=== PATIENT | male | born 1995 | race Caucasian/White ===

== ENCOUNTER 2017-05-22 21:47 | Emergency (ER) | payer SELFPAY ==
[2017-05-22 22:25] LABS: Urine Blood NEGATIVE (NEG); Urine Glucose NEGATIVE (NEG); Urine Protein 1+ (NEG); Urine Specific Gravity 1.025 (1.005-1.030)
[2017-05-22] MEDS ORDERED: NA CHLORIDE 0.9% 1,000 ML ONE (23:24)
[2017-05-22 23:56] LABS: Absolute Lymphocytes (CBC) 3.5 K/uL (0.7-4.9); Absolute Monocytes 0.8 K/uL (0.1-1.3); Absolute Neutrophil 5.7 K/uL (1.8-8.0); Basophils % 0.9 % (0-1.3); Hematocrit 44.8 % (39.6-49.0); Lymphocytes % 33.9 % (15.3-44.8); MCH 29.4 pg (27.0-35.0); MCV 87.7 fL (80-100); MPV 9.4 fL (7.6-11.3); Monocytes % 8.2 % (3.3-12.3); RBC Red Blood Cell Count 5.11 M/uL (4.33-5.43)
[2017-05-23 00:04] LABS: Bicarbonate 27 mEq/L (21-31); Glucose Level 91 mg/dL (65-120); Lipase 12 U/L (22-51); Potassium 3.6 mEq/L (3.6-5.0); Sodium Level 136 mEq/L (135-145)
[2017-05-23 00:05] LABS: Glomerular Filtration Rate > 60 mL/min (>60)
[2017-05-23 00:06] LABS: Urine Bacteria <20 /HPF (NONE SEEN); Urine Culture Reflex Order NOT NEEDED; Urine Mucus HEAVY /HPF (NONE SEEN); Urine RBC TNTC /HPF (NONE SEEN)
[2017-05-23 00:10] LABS: ALT/SGPT 37 IU/L (10-60); AST/SGOT 24 IU/L (10-42); Albumin 4.4 g/dL (3.2-5.5); Alkaline Phosphatase 87 IU/L (42-121); Amylase Level 43 U/L (28-100); BUN Blood Urea Nitrogen 11 mg/dL (6-20); Bilirubin Direct 0.1 mg/dL (0-0.2); Bilirubin Total 0.6 mg/dL (0.3-1.2); Glomerular Filtration Rate > 90 mL/min (=/>90); Protein, Total 7.5 g/dL (6.0-8.3)
[2017-05-23] MEDS ORDERED: HYDROCODONE/APAP 5/325 MG TAB ONE (00:15)
--- NOTE | 2017-05-23 00:19 | EDPHYS ---
Physician Documentation [facility] Name: Jasen Mcqueen Age: 22 yrs Sex: Male : 1995 Arrival Date: 05/22/2017 Time: 21:50 Bed 17 Private MD: ED Physician Noemi Masters HPI: 05/22 22:49 This 22 yrs old Male presents to ER via Ambulatory with complaints of Flank ma2 Pain. 22:49 The patient complains of pain in the left mid back. The pain does not radiate. Onset: ma2 The symptoms/episode began/occurred gradually, 1 day(s) ago. Associated signs and symptoms: Pertinent negatives:. Severity of pain: At its worst the pain was mild in the emergency department the pain has resolved and did so earlier today. The patient has experienced a previous episode. hxof right kindey stone her with flank pain that resolved . Historical: - Allergies: 22:00 No Known Allergies; la1 - PMHx: 22:00 Asthma; la1 - Immunization history:: Adult Immunizations up to date. - Social history:: Smoking status: Patient uses tobacco products, denies chronic smoking, but will smoke occasionally. - Family history:: not pertinent. ROS: 22:49 Constitutional: Negative for fever, chills, and weight loss, Eyes: Negative for injury, ma2 pain, redness, and discharge, ENT: Negative for injury, pain, and discharge, Cardiovascular: Negative for chest pain, palpitations, and edema, Respiratory: Negative for shortness of breath, cough, wheezing, and pleuritic chest pain, Back: Negative for injury and pain, MS/Extremity: Negative for injury and deformity, Skin: Negative for injury, rash, and discoloration, Neuro: Negative for headache, weakness, numbness, tingling, and seizure, Psych: Negative for depression, anxiety, suicide ideation, homicidal ideation, and hallucinations, Allergy/Immunology: Negative for hives, rash, and allergies, Endocrine: Negative for neck swelling, polydipsia, polyuria, polyphagia, and marked weight changes, Hematologic/Lymphatic: Negative for swollen nodes, abnormal bleeding, and unusual bruising. Exam: 22:49 Constitutional: This is a well developed, well nourished patient who is awake, alert, ma2 and in no acute distress. Head/Face: Normocephalic, atraumatic. Chest/axilla: Normal chest wall appearance and motion. Nontender with no deformity. No lesions are appreciated. Cardiovascular: Regular rate and rhythm with a normal S1 and S2. No gallops, murmurs, or rubs. Normal PMI, no JVD. No pulse deficits. Respiratory: Lungs have equal breath sounds bilaterally, clear to auscultation and percussion. No rales, rhonchi or wheezes noted. No increased work of breathing, no retractions or nasal flaring. Abdomen/GI: Soft, non-tender, with normal bowel sounds. No distension or tympany. No guarding or rebound. No evidence of tenderness throughout. Vital Signs: 22:00 BP 140 / 83; Pulse 87; Resp 16; Temp 98.6(TE); Pulse Ox 100% on R/A; Weight 99.79 kg; nc1 Height 5 ft. 9 in. (175.26 cm); 23:31 BP 120 / 83; Pulse 82; Resp 18; Pulse Ox 100% on R/A; tl2 05/23 00:18 BP 126 / 81; Pulse 93; Resp 17; Temp 98.7; Pulse Ox 100% on R/A; Pain 3/10; tl1 05/22 22:00 Body Mass Index 32.49 (99.79 kg, 175.26 cm) [facility] MDM: 05/22 22:07 Patient medically screened. wi2 22:49 Differential diagnosis: nephrolithiasis, pyelonephritis, UTI. wi2 05/23 00:17 Data reviewed: vital signs, nurses notes. Counseling: I had a detailed discussion with ma2 the patient and/or guardian regarding: the historical points, exam findings, and any diagnostic results supporting the discharge/admit diagnosis, the presence of at least one elevated blood pressure reading (>120/80) during this emergency department visit, the need for outpatient follow up, with urology. 05/22 22:23 Order name: Urine Dipstick--Ancillary (enter results); Complete Time: 22:59 [facility] 05/22 23:17 Order name: Amylase, Serum [facility] 05/22 23:17 Order name: Basic Metabolic Panel [facility] 05/22 23:17 Order name: CBC with Diff [facility] 05/22 23:17 Order name: Creatinine for Radiology [facility] 05/22 23:17 Order name: Hepatic Function wi2 05/22 22:29 Order name: CT Abd/Pelvis - Without Cont wi2 05/22 23:17 Order name: Lipase wi2 05/22 23:17 Order name: Urine Microscopic Only wi2 05/22 23:17 Order name: IV Saline Lock; Complete Time: 23:26 wi2 05/22 23:17 Order name: Labs collected and sent; Complete Time: 23:27 wi2 05/22 23:17 Order name: Urine Dipstick-Ancillary (obtain specimen); Complete Time: 23:27 [facility] Administered Medications: 05/22 23:27 Drug: NS 0.9% 1000 ml Route: IV; Rate: 1000 ml; Site: right antecubital; tl1 05/23 00:17 Follow up: IV Status: Completed infusion tl1 00:18 Drug: [place] 5 mg-325 mg 1 tabs Route: PO; tl1 00:19 Follow up: Response: No adverse reaction; Medication administered at discharge. tl1 Disposition: 05/23/17 00:18 Discharged to Home. Impression: Calculus of kidney and ureter. - Condition is Stable. - Prescriptions for Tylenol- Codeine #3 300-30 mg Oral Tablet - take 2 tablet by ORAL route every 6 hours As needed; 30 tablet. Flomax 0.4 mg Oral Capsule, Sust. Release 24 hr - take 1 capsule by ORAL route once daily 1/2 hour following the same meal each day; 30 capsule. - Work release form, Medication Reconciliation Form, Thank You Letter, Antibiotic Education, Prescription Opioid Use form. - Follow up: Private Physician; When: Tomorrow; Reason: Continuance of care. - Problem is new. - Symptoms are unchanged. Signatures: Dispatcher [employer] EDBrannon Spence RN RN la1 Ying Landaverde RN RN tl1 Noemi Masters MD MD ma2
--- NOTE | 2017-05-23 00:19 | ER ---
Nurse's Notes [facility] Name: Jasen Mcqueen Age: 22 yrs Sex: Male : 1995 Arrival Date: 05/22/2017 Time: 21:50 Bed 17 Private MD: Diagnosis: Calculus of kidney and ureter Presentation: 05/22 22:00 Presenting complaint: Patient states: left flank pain since this morning, recent hx of la1 kidney stone last month. Transition of care: patient was not received from another setting of care. Onset of symptoms was May 22, 2017. Care prior to arrival: None. 22:00 Method Of Arrival: Ambulatory la1 22:00 Acuity: UZIEL 3 la1 Historical: - Allergies: 22:00 No Known Allergies; la1 - PMHx: 22:00 Asthma; la1 - Immunization history:: Adult Immunizations up to date. - Social history:: Smoking status: Patient uses tobacco products, denies chronic smoking, but will smoke occasionally. - Family history:: not pertinent. Screenin:36 Abuse screen: Denies threats or abuse. Denies injuries from another. Nutritional tl1 screening: No deficits noted. Tuberculosis screening: Has had TB. Possible symptoms: cough for more than 2 weeks. Fall Risk None identified. Assessment: 22:34 General: Appears in no apparent distress. uncomfortable, Behavior is calm, cooperative, tl1 appropriate for age. Pain: Denies pain. Neuro: Level of Consciousness is awake, alert, obeys commands, Oriented to person, place, time, situation. Cardiovascular: Denies chest pain. GI: Abdomen is non-distended, Bowel sounds present X 4 quads. : No signs and/or symptoms were reported regarding the genitourinary system. EENT: No signs and/or symptoms were reported regarding the EENT system. 23:15 Reassessment: Patient appears in no apparent distress at this time. Patient and/or tl2 family updated on plan of care and expected duration. Pain level reassessed. Patient is alert, oriented x 3, equal unlabored respirations, skin warm/dry/pink. Awaiting CT results. Vital Signs: 22:00 BP 140 / 83; Pulse 87; Resp 16; Temp 98.6(TE); Pulse Ox 100% on R/A; Weight 99.79 kg; la1 Height 5 ft. 9 in. (175.26 cm); 23:31 BP 120 / 83; Pulse 82; Resp 18; Pulse Ox 100% on R/A; tl2 05/23 00:18 BP 126 / 81; Pulse 93; Resp 17; Temp 98.7; Pulse Ox 100% on R/A; Pain 3/10; tl1 05/22 22:00 Body Mass Index 32.49 (99.79 kg, 175.26 cm) la1 ED Course: 05/22 21:50 Patient arrived in ED. do 22:00 Triage completed. la1 22:01 Arm band placed on left wrist. la1 22:07 Noemi Masters MD is Attending Physician. ma2 22:34 Ying Landaverde RN is Primary Nurse. tl1 22:36 No provider procedures requiring assistance completed. tl1 22:41 CT Abd/Pelvis - Without Cont In Process Unspecified. EDMS 23:15 Patient has correct armband on for positive identification. Bed in low position. Call tl2 light in reach. Side rails up X 1. 23:26 Inserted saline lock: 20 gauge in right antecubital area, using aseptic technique. tl1 Blood collected. 05/23 00:19 IV discontinued, intact, bleeding controlled, No redness/swelling at site. Pressure tl1 dressing applied. Administered Medications: 05/22 23:27 Drug: NS 0.9% 1000 ml Route: IV; Rate: 1000 ml; Site: right antecubital; tl1 05/23 00:17 Follow up: IV Status: Completed infusion tl1 00:18 Drug: [place] 5 mg-325 mg 1 tabs Route: PO; tl1 00:19 Follow up: Response: No adverse reaction; Medication administered at discharge. tl1 Outcome: 00:18 Discharge ordered by . ma2 00:24 Patient left the ED. tl1 Signatures: Dispatcher [employer] EDMS Brannon Bey RN RN la1 Ying Landaverde RN RN tl1 Mar Noyola Taylor, RN RN tl2 Noemi Masters MD MD ma2 Corrections: (The following items were deleted from the chart) 05/22 23:38 22:34 Respiratory: Reports cough that is dry, hacking, persistent Airway is patent tl1 Trachea midline Respiratory effort is even, unlabored, Breath sounds are clear bilaterally. Breath sounds are diminished in left posterior lower lobe, right posterior middle lobe and right posterior lower lobe tl1
--- NOTE | 2017-05-23 07:32 | RAD REPORT ---
EXAM DESCRIPTION: CT - Abdomen Pelvis Wo Contrast - 05/23/2017 6:47 am CLINICAL HISTORY: Abdominal pain, left-sided flank pain. A preliminary written report was provided at the time of the study, and the report was reviewed prio r to final dictation. COMPARISON: CT May 02 TECHNIQUE: Axial [address] imaging of the abdomen and pelvis was performed without IV contrast. No IV contrast was given because of allergy, abnormal renal function, patient refusal or physician re quest. No oral contrast given. All CT scans are performed using dose optimization technique as appropriate and may include automated exposure control or mA/KV adjustment according to patient size. FINDINGS: No suspicious findings in the lung bases. The liver, spleen and pancreas show no suspicious findings on non-contrast imaging. Gallbladder and b iliary tree are also without suspicious finding. Gallstones can be occult on CT imaging. Mild dilatation of the left side pelvis and calices secondary to a 4 mm UPJ calculus. This calcificat ion has been displaced from its previous location in a mid left calyx. More distally the ureter is de compressed with no additional left ureteral calculus. The bladder calculus seen May 02 has passed or was retrieved. A 2-3 millimeter lower pole right renal calculus measures larger than the May 02 study. This could be true growth or volume averaging affects. No acute right-sided finding. There is no perinephric stranding. No significant adrenal finding. Isodense renal masses and pyelonephritis cannot be excluded in the absence of IV contrast. Urinary bladder is mostly contracted. Prostate glan d and seminal vesicles are normal. No dilated bowel loops or bowel wall thickening. No free air, free fluid or inflammatory stranding. N o hernia, mass or bulky lymphadenopathy. No suspicious bony findings. IMPRESSION: A 4 millimeter left UPJ calculus is present causing mild dilatation of the pelvis and ca lices. Right-side 3 millimeter calyx calcification measures larger than May 02 study. This could be true g rowth or volume averaging affects. Bladder calculus seen May 02 has passed or been retrieved. Full assessment is limited is the absence of IV contrast.
== END 2017-05-23 00:24 | disposition home or self-care (01) ==
LOC: ER 21:47
DX: N20.2 Calculus of kidney with calculus of ureter (principal); Z72.0 Tobacco use
CPT/HCPCS: 36415; 74176; 80048; 80076; 81003; 81015; 82150; 83690; 85025; 96360; 99284; J7030

== ENCOUNTER 2017-05-25 16:16 | Emergency (ER) | payer SELFPAY ==
--- NOTE | 2017-05-25 17:39 | EDPHYS ---
Physician Documentation [facility] Name: Jasen Mcqueen Age: 22 yrs Sex: Male : 1995 Arrival Date: 05/25/2017 Time: 16:18 Bed 26 Private MD: ED Physician Hugo Bhatia HPI: 05/25 16:52 This 22 yrs old Male presents to ER via Ambulatory with complaints of kb Possible Kidney Stone. 16:52 The patient complains of pain in the left flank. The pain does not radiate. Onset: The kb symptoms/episode began/occurred last week. Modifying factors: The symptoms are alleviated by nothing. the symptoms are aggravated by nothing. Associated signs and symptoms: The patient has no apparent associated signs or symptoms. Severity of pain: At its worst the pain was moderate in the emergency department the pain is unchanged. The patient has not experienced similar symptoms in the past. The patient has been recently seen at the [facility] Emergency Department, this week, for similar complaints labs were performed, CT scan was performed, was given a prescription for pain medications. Pt states he was diagnosed with a kidney stone on Thursday and he came to make sure it isn't obstructing anything. States he has not called a urologist for follow up, but came back for a work note. Historical: - Allergies: 16:26 No Known Allergies; la1 - PMHx: 16:26 Asthma; la1 - Immunization history:: Adult Immunizations up to date. - Social history:: Smoking status: Patient uses tobacco products, denies chronic smoking, but will smoke occasionally. ROS: 16:51 Constitutional: Negative for fever, chills, and weight loss, Neck: Negative for injury, kb pain, and swelling, Cardiovascular: Negative for chest pain, palpitations, and edema, Respiratory: Negative for shortness of breath, cough, wheezing, and pleuritic chest pain, Abdomen/GI: Negative for abdominal pain, nausea, vomiting, diarrhea, and constipation, MS/Extremity: Negative for injury and deformity, Skin: Negative for injury, rash, and discoloration, Neuro: Negative for headache, weakness, numbness, tingling, and seizure. 16:51 : Positive for flank pain. Exam: 16:51 Constitutional: This is a well developed, well nourished patient who is awake, alert, kb and in no acute distress. Head/Face: Normocephalic, atraumatic. Chest/axilla: Normal chest wall appearance and motion. Nontender with no deformity. No lesions are appreciated. Cardiovascular: Regular rate and rhythm with a normal S1 and S2. No gallops, murmurs, or rubs. Normal PMI, no JVD. No pulse deficits. Respiratory: Lungs have equal breath sounds bilaterally, clear to auscultation and percussion. No rales, rhonchi or wheezes noted. No increased work of breathing, no retractions or nasal flaring. Abdomen/GI: Soft, non-tender, with normal bowel sounds. No distension or tympany. No guarding or rebound. No evidence of tenderness throughout. Back: No spinal tenderness. No costovertebral tenderness. Full range of motion. Skin: Warm, dry with normal turgor. Normal color with no rashes, no lesions, and no evidence of cellulitis. MS/ Extremity: Pulses equal, no cyanosis. Neurovascular intact. Full, normal range of motion. Neuro: Awake and alert, GCS 15, oriented to person, place, time, and situation. Cranial nerves II-XII grossly intact. Motor strength 5/5 in all extremities. Sensory grossly intact. Cerebellar exam normal. Normal gait. Vital Signs: 16:26 BP 142 / 71; Pulse 115; Resp 19; Temp 98.8(TE); Pulse Ox 100% on R/A; Weight 99.79 kg; la1 Height 5 ft. 9 in. (175.26 cm); 18:05 BP 138 / 70; Pulse 110; Resp 19; Pulse Ox 100% on R/A; kr2 16:26 Body Mass Index 32.49 (99.79 kg, 175.26 cm) la1 MDM: 16:29 Patient medically screened. kb 16:50 Data reviewed: vital signs, nurses notes. Data interpreted: Pulse oximetry: on room air kb is 100 %. Interpretation: normal. 17:38 Counseling: I had a detailed discussion with the patient and/or guardian regarding: the kb historical points, exam findings, and any diagnostic results supporting the discharge/admit diagnosis, lab results, radiology results, the need for outpatient follow up, a urologist, to return to the emergency department if symptoms worsen or persist or if there are any questions or concerns that arise at home. 05/25 16:56 Order name: Urine Dipstick--Ancillary (enter results); Complete Time: 17:46 bd 05/25 16:26 Order name: Abdomen 1 View (KUB) XRAY; Complete Time: 19:42 kb 05/25 16:33 Order name: Urine Dipstick-Ancillary (obtain specimen); Complete Time: 16:51 kb Administered Medications: No medications were administered Disposition: 05/26 07:52 Co-signature as Attending Physician, Hugo Bhatia MD Available for consultation at ps1 all times. . Disposition: 05/25/17 17:38 Discharged to Home. Impression: Calculus of kidney. - Condition is Stable. - Discharge Instructions: Kidney Stones, [id number], Dietary Guidelines to Help Prevent Kidney Stones. - Work release form, Medication Reconciliation Form, Thank You Letter, Antibiotic Education, Prescription Opioid Use form. - Follow up: Emergency Department; When: As needed; Reason: Worsening of condition. Follow up: Russell Olivares; When: 2 - 3 days; Reason: Recheck today's complaints, Continuance of care, Re-evaluation by your physician. Signatures: Dispatcher [employer] EDMS Jody Jensen, CYLINDER HONER-C CYLINDER HONER-Ckb Brannon Bey RN RN la1 Mayra Clifton RN RN kr2 Hugo Bhatia MD MD ps1 Corrections: (The following items were deleted from the chart) 05/25 17:38 17:38 Counseling: I had a detailed discussion with the patient and/or guardian kb regarding: the historical points, exam findings, and any diagnostic results supporting the discharge/admit diagnosis, lab results, radiology results, the need for outpatient follow up, a family practitioner, to return to the emergency department if symptoms worsen or persist or if there are any questions or concerns that arise at home, kb
--- NOTE | 2017-05-25 17:39 | ER ---
Nurse's Notes [facility] Name: Jasen Mcqueen Age: 22 yrs Sex: Male : 1995 Arrival Date: 05/25/2017 Time: 16:18 Bed 26 Private MD: Diagnosis: Calculus of kidney Presentation: 05/25 16:24 Presenting complaint: Patient states: I have a kidney stone, was dx Thursday here. I la1 think it fell in to my bladder but I just wanted to make sure its not obstructing anything. Pt reports normal urine output. "I also need a work excuse". Transition of care: patient was not received from another setting of care. Onset of symptoms was May 25, 2017. Initial Sepsis Screen: Does the patient meet any 2 criteria? No. Patient's initial sepsis screen is negative. Does the patient have a suspected source of infection? No. Patient initial sepsis screen negative. Care prior to arrival: None. 16:24 Method Of Arrival: Ambulatory la1 16:24 Acuity: UZIEL 4 la1 Historical: - Allergies: 16:26 No Known Allergies; la1 - PMHx: 16:26 Asthma; la1 - Immunization history:: Adult Immunizations up to date. - Social history:: Smoking status: Patient uses tobacco products, denies chronic smoking, but will smoke occasionally. Screenin:06 Abuse screen: Denies threats or abuse. Denies injuries from another. Nutritional kr2 screening: No deficits noted. Tuberculosis screening: No symptoms or risk factors identified. Fall Risk None identified. Assessment: 16:30 General: Appears in no apparent distress. comfortable, well groomed, well developed, kr2 well nourished, Behavior is calm, cooperative, appropriate for age. Pain: Complains of pain in left flank Pain does not radiate. Pain currently is 6 out of 10 on a pain scale. Quality of pain is described as aching, Pain began suddenly, Is continuous. Neuro: Level of Consciousness is awake, alert, obeys commands, Oriented to person, place, time, situation. Cardiovascular: Capillary refill < 3 seconds in bilateral fingers Patient's skin is warm and dry. Respiratory: Airway is patent Respiratory effort is even, unlabored, Respiratory pattern is regular, symmetrical. GI: Bowel sounds present X 4 quads. Abd is soft and non tender X 4 quads. Reports he has kidney stones but wants to make sure there is no obstruction. : Urine is cloudy. EENT: Oral mucosa is moist. Derm: Skin is intact, is healthy with good turgor, Skin is pink, warm \\T\\ dry. Musculoskeletal: Circulation, motion, and sensation intact. Vital Signs: 16:26 BP 142 / 71; Pulse 115; Resp 19; Temp 98.8(TE); Pulse Ox 100% on R/A; Weight 99.79 kg; la1 Height 5 ft. 9 in. (175.26 cm); 18:05 BP 138 / 70; Pulse 110; Resp 19; Pulse Ox 100% on R/A; kr2 16:26 Body Mass Index 32.49 (99.79 kg, 175.26 cm) la1 ED Course: 16:18 Patient arrived in ED. as 16:25 Triage completed. la1 16:26 Jody Jensen FNP-C is PSYCHIATRICP. kb 16:26 Hugo Bhatia MD is Attending Physician. kb 16:26 Arm band placed on right wrist. la1 16:30 Patient has correct armband on for positive identification. Bed in low position. Call kr2 light in reach. Side rails up X2. Pulse ox on. NIBP on. Door closed. Warm blanket given. Head of bed elevated. 16:42 Mayra Clifton, RN is Primary Nurse. kr2 17:34 X-ray completed. Portable x-ray completed in exam room. Patient tolerated procedure mh1 well. 17:36 Abdomen 1 View (KUB) XRAY In Process Unspecified. EDMS 17:38 Russell Olivares MD is Referral Physician. kb 18:06 No provider procedures requiring assistance completed. Patient did not have IV access kr2 during this emergency room visit. Administered Medications: No medications were administered Outcome: 17:38 Discharge ordered by . kb 18:07 Discharged to home ambulatory. kr2 18:07 Condition: good 18:07 Discharge instructions given to patient, Instructed on discharge instructions, follow up and referral plans. Demonstrated understanding of instructions, follow-up care. 18:08 Patient left the ED. kr2 Signatures: Dispatcher [employer] EDMS Jody Jensen FNP-C [facility]-Ifeoma Rodriguez 1 Naila Garcia Lee, RN RN la1 Etienne, Mayra, RN RN kr2
[2017-05-25 17:45] LABS: Urine Blood 3+ (NEG); Urine Glucose NEGATIVE (NEG); Urine Protein NEGATIVE (NEG); Urine pH 6.5 (5.0-7.0)
--- NOTE | 2017-05-25 18:07 | RAD REPORT ---
EXAM DESCRIPTION: RAD - Abdomen 1 View (KUB) - 05/25/2017 5:35 pm CLINICAL HISTORY: Kidney stone COMPARISON: CT study May 22 FINDINGS: The 4 millimeter proximal left ureter calcification seen on the recent CT study is not blas ntifiable on this examination. The stone may be radiographically occult, obscured by bowel content or may have passed. No obstruction, free air or pneumatosis. Bowel gas pattern is nonspecific. No significant bony findings IMPRESSION: The calcification seen on the May 22 CT study is not clearly identifiable on this stud y. The stone may be radiographically occult, obscured by bowel content or may have passed.
== END 2017-05-25 18:08 | disposition home or self-care (01) ==
LOC: ER 16:16
DX: N20.0 Calculus of kidney (principal); F17.210 Nicotine dependence, cigarettes, uncomplicated
CPT/HCPCS: 74018; 81003; 99283

== ENCOUNTER 2017-09-09 13:27 | Emergency (ER) | payer SELFPAY ==
--- NOTE | 2017-09-09 14:30 | ER ---
Nurse's Notes [facility] Name: Jasen Mcqueen Age: 22 yrs Sex: Male : 1995 Arrival Date: 09/09/2017 Time: 13:31 Bed 14 Private MD: None, None Diagnosis: Person with feared health complaint in whom no diagnosis is made Presentation: 09/09 13:51 Presenting complaint: Patient states: Four days ago, i was walking when i stepped on sg the back of nail, it poked the sole of my right foot now it feels like there is something hard inside when i walk and put weight down on the foot. Transition of care: patient was not received from another setting of care. Onset of symptoms was September 05, 2017. Risk Assessment: Do you want to hurt yourself or someone else? Patient reports no desire to harm self or others. Initial Sepsis Screen: Does the patient meet any 2 criteria? No. Patient's initial sepsis screen is negative. Does the patient have a suspected source of infection? No. Patient's initial sepsis screen is negative. Care prior to arrival: None. 13:51 Method Of Arrival: Ambulatory 13:51 Acuity: UZIEL 5 sg Triage Assessment: 14:00 General: Appears in no apparent distress. comfortable, Behavior is calm, cooperative, ph appropriate for age, Denies fever. Pain:. Historical: - Allergies: 13:52 No Known Allergies; sg - Home Meds: 13:52 None [Active]; sg - PMHx: 13:52 Asthma; sg - PSHx: 13:52 None; sg - Immunization history:: Adult Immunizations up to date, Last tetanus immunization: up to date. - Social history:: Smoking status: Patient uses tobacco products, denies chronic smoking, but will smoke occasionally. - Ebola Screening: : Patient negative for fever greater than or equal to 101.5 degrees Fahrenheit, and additional compatible Ebola Virus Disease symptoms Patient denies exposure to infectious person Patient denies travel to an Ebola-affected area in the 21 days before illness onset No symptoms or risks identified at this time. Screenin:00 Abuse screen: Denies threats or abuse. Denies injuries from another. Nutritional ph screening: No deficits noted. Tuberculosis screening: No symptoms or risk factors identified. Fall Risk None identified. Assessment: 14:25 General: Appears in no apparent distress. comfortable, Behavior is calm, cooperative, ph appropriate for age. Pain: Complains of pain in right foot. Neuro: Level of Consciousness is awake, alert, obeys commands, Oriented to person, place, time, situation. Cardiovascular: Capillary refill < 3 seconds Patient's skin is warm and dry. Respiratory: Airway is patent Respiratory effort is even, unlabored. Derm: Skin is intact, is healthy with good turgor, Skin is pink, warm \T\ dry. Bruising that is brown, on ball of right foot. Musculoskeletal: Circulation, motion, and sensation intact. Range of motion: intact in all extremities. Vital Signs: 13:53 BP 128 / 73; Pulse 83 MON; Resp 14 S; Temp 98.3(TE); Pulse Ox 99% on R/A; Weight 90.72 sg kg (R); Height 5 ft. 9 in. (175.26 cm) (R); Pain 4/10; 15:50 BP 117 / 63; Pulse 81; Resp 18; Temp 98.0; Pulse Ox 99% on R/A; ph 13:53 Body Mass Index 29.53 (90.72 kg, 175.26 cm) sg ED Course: 13:31 Patient arrived in ED. sb2 13:31 None, None is Private Physician. sb2 13:50 Vidhi Snell, RN is Primary Nurse. ph 13:52 Triage completed. sg 13:53 Arm band placed on. sg 14:20 Kaylen Sabillon FNP-C is PHCP. snw 14:20 Dandy Hidalgo MD is Attending Physician. snw 14:25 Patient has correct armband on for positive identification. Bed in low position. Call ph light in reach. Side rails up X 1. Pulse ox on. NIBP on. Warm blanket given. 15:50 No provider procedures requiring assistance completed. Patient did not have IV access ph during this emergency room visit. 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 Exp: ph 10/29/2019. Lot #: [id number]. } Route: IM; Site: right deltoid; 15:49 Follow up: Response: No adverse reaction ph Outcome: 14:29 Discharge ordered by . snw 15:50 Patient left the ED. ph 15:50 Discharged to home ambulatory. ph 15:50 Condition: good 15:50 Discharge instructions given to patient, Instructed on discharge instructions, follow up and referral plans. medication usage, Demonstrated understanding of instructions, follow-up care, medications, Prescriptions given X 1. Signatures: Milton Sheppard, RN RN Kaylen Sabillon, BANK APPRAISER-C BANK APPRAISER-Csnw Vidhi Snell RN RN Marychuy Orantes sb2
--- NOTE | 2017-09-09 14:30 | EDPHYS ---
Physician Documentation [facility] Name: Jasen Mcqueen Age: 22 yrs Sex: Male : 1995 Arrival Date: 09/09/2017 Time: 13:31 Bed 14 Private MD: None, None ED Physician Dandy Hidalgo HPI: 09/09 14:38 This 22 yrs old Male presents to ER via Ambulatory with complaints of Foot snw Injury. 14:38 The patient presents with an injury. The complaints affect the dorsum of right foot. snw Context: The problem was sustained outdoors, resulted from stepping on head of a nail, the patient can fully bear weight, the patient is able to ambulate, Problem is a result from a previous injury: No. Onset: The symptoms/episode began/occurred suddenly, 4 day(s) ago, and became persistent. Treatment prior to arrival includes: no previous treatment. Severity of symptoms: At their worst the symptoms were moderate. The patient has not experienced similar symptoms in the past. The patient has not recently seen a physician. no fever, no redness, just feels like he is walking on a rock. Historical: - Allergies: 13:52 No Known Allergies; sg - Home Meds: 13:52 None [Active]; sg - PMHx: 13:52 Asthma; sg - PSHx: 13:52 None; sg - Immunization history:: Adult Immunizations up to date, Last tetanus immunization: up to date. - Social history:: Smoking status: Patient uses tobacco products, denies chronic smoking, but will smoke occasionally. - Ebola Screening: : Patient negative for fever greater than or equal to 101.5 degrees Fahrenheit, and additional compatible Ebola Virus Disease symptoms Patient denies exposure to infectious person Patient denies travel to an Ebola-affected area in the 21 days before illness onset No symptoms or risks identified at this time. ROS: 14:36 Constitutional: Negative for fever, chills, and weight loss, Eyes: Negative for injury, snw pain, redness, and discharge, ENT: Negative for injury, pain, and discharge, Neck: Negative for injury, pain, and swelling, Cardiovascular: Negative for chest pain, palpitations, and edema, Respiratory: Negative for shortness of breath, cough, wheezing, and pleuritic chest pain, Abdomen/GI: Negative for abdominal pain, nausea, vomiting, diarrhea, and constipation, Back: Negative for injury and pain, : Negative for injury, bleeding, discharge, and swelling, Skin: Negative for injury, rash, and discoloration, Neuro: Negative for headache, weakness, numbness, tingling, and seizure. 14:36 MS/extremity: Positive for pain to ball of foot with ambulation post injury 4 days ago. Exam: 14:35 Constitutional: This is a well developed, well nourished patient who is awake, alert, snw and in no acute distress. Head/Face: Normocephalic, atraumatic. Eyes: Pupils equal round and reactive to light, extra-ocular motions intact. Lids and lashes normal. Conjunctiva and sclera are non-icteric and not injected. Cornea within normal limits. Periorbital areas with no swelling, redness, or edema. ENT: Nares patent. No nasal discharge, no septal abnormalities noted. Tympanic membranes are normal and external auditory canals are clear. Oropharynx with no redness, swelling, or masses, exudates, or evidence of obstruction, uvula midline. Mucous membranes moist. Neck: Trachea midline, no thyromegaly or masses palpated, and no cervical lymphadenopathy. Supple, full range of motion without nuchal rigidity, or vertebral point tenderness. No Meningismus. Chest/axilla: Normal chest wall appearance and motion. Nontender with no deformity. No lesions are appreciated. Cardiovascular: Regular rate and rhythm with a normal S1 and S2. No gallops, murmurs, or rubs. Normal PMI, no JVD. No pulse deficits. Respiratory: Lungs have equal breath sounds bilaterally, clear to auscultation and percussion. No rales, rhonchi or wheezes noted. No increased work of breathing, no retractions or nasal flaring. Abdomen/GI: Soft, non-tender, with normal bowel sounds. No distension or tympany. No guarding or rebound. No evidence of tenderness throughout. Back: No spinal tenderness. No costovertebral tenderness. Full range of motion. MS/ Extremity: Pulses equal, no cyanosis. Neurovascular intact. Full, normal range of motion. Neuro: Awake and alert, GCS 15, oriented to person, place, time, and situation. Cranial nerves II-XII grossly intact. Motor strength 5/5 in all extremities. Sensory grossly intact. Cerebellar exam normal. Normal gait. Psych: Awake, alert, with orientation to person, place and time. Behavior, mood, and affect are within normal limits. 14:35 Skin: Appearance: normal except for affected area, mild tenderness to minimal laceration at ball of foot. No erythema, no ecchymosis, no s/s infection. Vital Signs: 13:53 BP 128 / 73; Pulse 83 MON; Resp 14 S; Temp 98.3(TE); Pulse Ox 99% on R/A; Weight 90.72 sg kg (R); Height 5 ft. 9 in. (175.26 cm) (R); Pain 4/10; 15:50 BP 117 / 63; Pulse 81; Resp 18; Temp 98.0; Pulse Ox 99% on R/A; ph 13:53 Body Mass Index 29.53 (90.72 kg, 175.26 cm) sg MDM: 14:20 Patient medically screened. snw 14:37 Data reviewed: nurses notes. Data interpreted: Pulse oximetry: on room air is 99 %. snw Interpretation: normal. Counseling: I had a detailed discussion with the patient and/or guardian regarding: the historical points, exam findings, and any diagnostic results supporting the discharge/admit diagnosis, the need for outpatient follow up, to return to the emergency department if symptoms worsen or persist or if there are any questions or concerns that arise at home. Special discussion: I discussed in detail with the patient the higher chance of wound infection based on his presenting history. Based on the history and exam findings, there is no indication for further emergent testing or inpatient evaluation. I discussed with the patient/guardian the need to see the primary care provider for further evaluation of the symptoms. 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 Exp: ph 10/29/2019. Lot #: [id number]. } Route: IM; Site: right deltoid; 15:49 Follow up: Response: No adverse reaction ph Disposition: 09/10 06:45 Co-signature as Attending Physician, Dandy Hidalgo MD I agree with the assessment and ori plan of care. Disposition: 09/09/17 14:29 Discharged to Home. Impression: Person with feared health complaint in whom no diagnosis is made. - Condition is Stable. - Discharge Instructions: Puncture Wound, VIS, Tetanus, Diphtheria (Td) - CDC. - Prescriptions for Diclofenac Sodium 75 mg Oral Tablet Sustained Release - take 1 tablet by ORAL route 2 times per day; 30 tablet. - Medication Reconciliation Form, Thank You Letter, Antibiotic Education, Prescription Opioid Use, Work release form form. - Follow up: Private Physician; When: 1 week; Reason: Recheck today's complaints, Continuance of care, Re-evaluation by your physician. Follow up: Emergency Department; When: As needed; Reason: Worsening of condition. Signatures: Milton Sheppard, RN RN Dandy Woo MD MD cha Therrien, Shelly, FACING GRINDER-C FACING GRINDER-Csnw Vidhi Snell RN RN ph Corrections: (The following items were deleted from the chart) 09/09 14:29 14:28 Chart complete. judy kim 15:50 14:29 09/09/2017 14:29 Discharged to Home. Impression: Person with feared health ph complaint in whom no diagnosis is made. Condition is Stable. Forms are Medication Reconciliation Form, Thank You Letter, Antibiotic Education, Prescription Opioid Use. Follow up: Private Physician; When: 1 week; Reason: Recheck today's complaints, Continuance of care, Re-evaluation by your physician. Follow up: Emergency Department; When: As needed; Reason: Worsening of condition. judy
[2017-09-09] MEDS ORDERED: TETANUS & DIPHTHERIA TOX,ADULT 0.5 ML VIAL ONE (15:20)
== END 2017-09-09 15:50 | disposition home or self-care (01) ==
LOC: ER 13:27
DX: Z71.1 Person with feared health complaint in whom no diagnosis is made (principal); Z23 Encounter for immunization; Z72.0 Tobacco use
CPT/HCPCS: 90714; 99283

== ENCOUNTER 2017-12-04 04:14 | Emergency (ER) | payer SELFPAY ==
[2017-12-04] MEDS ORDERED: ONDANSETRON 4 MG (ODT) TAB ONE (04:45)
--- NOTE | 2017-12-04 05:25 | ER ---
Nurse's Notes [facility] Name: Jasen Mcqueen Age: 22 yrs Sex: Male : 1995 Arrival Date: 12/04/2017 Time: 04:15 Bed 14 Private MD: Diagnosis: Weakness;Malaise and fatigue;Cough;Fever, unspecified Presentation: 12/04 04:29 Presenting complaint: Patient states: I began having nausea \T\ vomiting 3 days ago and jb4 have had a cough since then and just wanted to get checked out. Transition of care: patient was not received from another setting of care. Onset of symptoms was November 30, 2017. Risk Assessment: Do you want to hurt yourself or someone else? Patient reports no desire to harm self or others. Initial Sepsis Screen: Does the patient meet any 2 criteria? HR > 90 bpm. Yes Does the patient have a suspected source of infection? No. Patient's initial sepsis screen is negative. Care prior to arrival: None. 04:29 Method Of Arrival: Ambulatory jb4 04:29 Acuity: UZIEL 4 jb4 Triage Assessment: 04:32 General: Appears in no apparent distress. uncomfortable, Behavior is calm, cooperative, jb4 appropriate for age. Pain: Denies pain. EENT: No signs and/or symptoms were reported regarding the EENT system. Neuro: Level of Consciousness is awake, alert, obeys commands, Oriented to person, place, time, situation. Cardiovascular: Heart tones S1 S2 present Patient's skin is warm and dry. Respiratory: Reports cough that is Airway is patent Respiratory effort is even, unlabored, Respiratory pattern is regular, symmetrical, Breath sounds are clear bilaterally. GI: Reports nausea, vomiting. : No signs and/or symptoms were reported regarding the genitourinary system. Derm: Skin is intact, Skin is pink, warm \T\ dry. Musculoskeletal: Circulation, motion, and sensation intact. Historical: - Allergies: 04:32 No Known Allergies; jb4 - Home Meds: 04:32 Theraflu Flu-Sore Throat oral oral [Active]; jb4 - PMHx: 04:32 Asthma; jb4 - PSHx: 04:32 None; jb4 - Immunization history:: Adult Immunizations up to date, Flu vaccine is not up to date. - Social history:: Smoking status: Patient uses tobacco products, smokes one-half pack cigarettes per day. - Family history:: not pertinent. - Ebola Screening: : No symptoms or risks identified at this time. Screenin:39 Abuse screen: Denies threats or abuse. Nutritional screening: No deficits noted. jb4 Tuberculosis screening: No symptoms or risk factors identified. Fall Risk None identified. Assessment: 04:39 General: see triage assessment.. jb4 05:21 Reassessment: Patient appears in no apparent distress at this time. Patient and/or jb4 family updated on plan of care and expected duration. Pain level reassessed. Patient is alert, oriented x 3, equal unlabored respirations, skin warm/dry/pink. 05:30 Reassessment: Patient appears in no apparent distress at this time. Patient and/or jb4 family updated on plan of care and expected duration. Pain level reassessed. Patient is alert, oriented x 3, equal unlabored respirations, skin warm/dry/pink. Discussed D/c, F/u with pt, denies questions or concerns. Vital Signs: 04:32 BP 119 / 72; Pulse 94; Resp 18; Temp 98.2; Pulse Ox 100% on R/A; Weight 90.72 kg; jb4 Height 5 ft. 9 in. (175.26 cm); Pain 0/10; 05:21 BP 110 / 77; Pulse 86; Resp 18; Pulse Ox 100% on R/A; jb4 04:32 Body Mass Index 29.53 (90.72 kg, 175.26 cm) jb4 ED Course: 04:15 Patient arrived in ED. ds1 04:19 Valentin León RN is Primary Nurse. jb4 04:20 Dandy Hidalgo MD is Attending Physician. [facility] 04:30 Triage completed. jb4 04:32 Arm band placed on right wrist. jb4 04:39 Patient has correct armband on for positive identification. Bed in low position. Call jb4 light in reach. Side rails up X 1. Pulse ox on. NIBP on. 04:51 X-ray completed. Portable x-ray completed in exam room. Patient tolerated procedure kw well. 04:52 Chest Single View XRAY In Process Unspecified. EDMS 05:21 No provider procedures requiring assistance completed. IV discontinued, intact, jb4 bleeding controlled. Administered Medications: 04:39 Drug: Zofran 4 mg Route: PO; jb4 05:00 Follow up: Response: No adverse reaction; Vomiting decreased jb4 Outcome: 05:25 Discharge ordered by MD. rehman 05:32 Discharged to home ambulatory. jb4 05:32 Condition: stable 05:32 Discharge instructions given to patient, Instructed on discharge instructions, follow up and referral plans. medication usage, Demonstrated understanding of instructions, follow-up care, medications, Prescriptions given X 1. 05:32 Patient left the ED. jb4 Signatures: Dispatcher [employer] EDMI Dandy Hidalgo MD MD cha Sanford, Demi ds1 Miranda Lazaro James, RN RN jb4 Corrections: (The following items were deleted from the chart) 05:31 05:21 BP 110 / 77; Pulse 18bpm; Resp 86bpm; Pulse Ox 100% RA; jb4 jb4
--- NOTE | 2017-12-04 05:25 | EDPHYS ---
Physician Documentation [facility] Name: Jasen Mcqueen Age: 22 yrs Sex: Male : 1995 Arrival Date: 12/04/2017 Time: 04:15 Bed 14 Private MD: ED Physician Dandy Hidalgo HPI: 12/04 04:24 This 22 yrs old Male presents to ER via Unassigned with complaints of Flu ori Symptoms. 04:24 The patient presents to the emergency department with nausea, vomiting, 3 times since ori the onset of symptoms. Onset: The symptoms/episode began/occurred 2 day(s) ago. Possible causes: unknown. The symptoms are aggravated by movement, The symptoms are alleviated by remaining still. weak, achy, vomiting, cough. Associated signs and symptoms: Pertinent positives: fever, nausea, vomiting. The patient reports fever, not measured (subjective). Severity of symptoms: At their worst the symptoms were mild moderate in the emergency department the symptoms are unchanged. Historical: - Allergies: 04:32 No Known Allergies; jb4 - Home Meds: 04:32 Theraflu Flu-Sore Throat oral oral [Active]; jb4 - PMHx: 04:32 Asthma; jb4 - PSHx: 04:32 None; jb4 - Immunization history:: Adult Immunizations up to date, Flu vaccine is not up to date. - Social history:: Smoking status: Patient uses tobacco products, smokes one-half pack cigarettes per day. - Family history:: not pertinent. - Ebola Screening: : No symptoms or risks identified at this time. ROS: 04:24 Constitutional: Negative for fever, chills, and weight loss, Eyes: Negative for injury, ori pain, redness, and discharge, ENT: Negative for injury, pain, and discharge, Neck: Negative for injury, pain, and swelling, Cardiovascular: Negative for chest pain, palpitations, and edema, Back: Negative for injury and pain, : Negative for injury, bleeding, discharge, and swelling, MS/Extremity: Negative for injury and deformity, Skin: Negative for injury, rash, and discoloration, Neuro: Negative for headache, weakness, numbness, tingling, and seizure, Psych: Negative for depression, anxiety, suicide ideation, homicidal ideation, and hallucinations, Allergy/Immunology: Negative for hives, rash, and allergies, Endocrine: Negative for neck swelling, polydipsia, polyuria, polyphagia, and marked weight changes, Hematologic/Lymphatic: Negative for swollen nodes, abnormal bleeding, and unusual bruising. 04:24 Respiratory: Positive for cough. 04:24 Abdomen/GI: Positive for nausea and vomiting. Exam: 04:24 Constitutional: This is a well developed, well nourished patient who is awake, alert, ori and in no acute distress. Head/Face: Normocephalic, atraumatic. Eyes: Pupils equal round and reactive to light, extra-ocular motions intact. Lids and lashes normal. Conjunctiva and sclera are non-icteric and not injected. Cornea within normal limits. Periorbital areas with no swelling, redness, or edema. ENT: Nares patent. No nasal discharge, no septal abnormalities noted. Tympanic membranes are normal and external auditory canals are clear. Oropharynx with no redness, swelling, or masses, exudates, or evidence of obstruction, uvula midline. Mucous membranes moist. Neck: Trachea midline, no thyromegaly or masses palpated, and no cervical lymphadenopathy. Supple, full range of motion without nuchal rigidity, or vertebral point tenderness. No Meningismus. Chest/axilla: Normal chest wall appearance and motion. Nontender with no deformity. No lesions are appreciated. Cardiovascular: Regular rate and rhythm with a normal S1 and S2. No gallops, murmurs, or rubs. Normal PMI, no JVD. No pulse deficits. Respiratory: Lungs have equal breath sounds bilaterally, clear to auscultation and percussion. No rales, rhonchi or wheezes noted. No increased work of breathing, no retractions or nasal flaring. Back: No spinal tenderness. No costovertebral tenderness. Full range of motion. Male : Normal genitalia with no discharge or lesions. Skin: Warm, dry with normal turgor. Normal color with no rashes, no lesions, and no evidence of cellulitis. MS/ Extremity: Pulses equal, no cyanosis. Neurovascular intact. Full, normal range of motion. Neuro: Awake and alert, GCS 15, oriented to person, place, time, and situation. Cranial nerves II-XII grossly intact. Motor strength 5/5 in all extremities. Sensory grossly intact. Cerebellar exam normal. Normal gait. Psych: Awake, alert, with orientation to person, place and time. Behavior, mood, and affect are within normal limits. 04:24 Abdomen/GI: Inspection: abdomen appears normal, Bowel sounds: normal, Palpation: nontender, Liver: no appreciated palpable abnormalities, Hernia: not appreciated. Vital Signs: 04:32 BP 119 / 72; Pulse 94; Resp 18; Temp 98.2; Pulse Ox 100% on R/A; Weight 90.72 kg; jb4 Height 5 ft. 9 in. (175.26 cm); Pain 0/10; 05:21 BP 110 / 77; Pulse 86; Resp 18; Pulse Ox 100% on R/A; jb4 04:32 Body Mass Index 29.53 (90.72 kg, 175.26 cm) 4 MDM: 04:20 Patient medically screened. [facility] 04:27 Data reviewed: vital signs, nurses notes, lab test result(s), radiologic studies. [facility] 12/04 04:23 Order name: Flu; Complete Time: 05:24 [facility] 12/04 04:27 Order name: Chest Single View XRAY [facility] Administered Medications: 04:39 Drug: Zofran 4 mg Route: PO; 4 05:00 Follow up: Response: No adverse reaction; Vomiting decreased jb4 Disposition: 12/04/17 05:25 Discharged to Home. Impression: Weakness, Malaise and fatigue, Cough, Fever, unspecified. - Condition is Stable. - Discharge Instructions: Weakness, Cool Mist Vaporizer, Fatigue, Cough, Adult, [id number], Weakness, Ghcf-[id number], Cough, Adult. - Prescriptions for Zofran 4 mg Oral Tablet - take 1 tablet by ORAL route every 12 hours As needed; 12 tablet. - Medication Reconciliation Form, Thank You Letter, Antibiotic Education, Prescription Opioid Use form. - Work release form (12/04/17 05:33). jb4 - Follow up: Private Physician; When: 2 - 3 days; Reason: Recheck today's complaints, Continuance of care, Re-evaluation by your physician. - Problem is new. - Symptoms have improved. Signatures: Dispatcher [employer] EDMS Dandy Hidalgo MD MD cha Bryson, James RN RN jb4 Corrections: (The following items were deleted from the chart) 05:32 05:25 12/04/2017 05:25 Discharged to Home. Impression: Weakness; Malaise and fatigue; jb4 Cough; Fever, unspecified. Condition is Stable. Discharge Instructions: Weakness, Cool Mist Vaporizer, Fatigue, Cough, Adult, [id number], Weakness, Blko-rb-Tnns, Cough, Adult. Prescriptions for Zofran 4 mg Oral Tablet - take 1 tablet by ORAL route every 12 hours As needed; 12 tablet. and Forms are Medication Reconciliation Form, Thank You Letter, Antibiotic Education, Prescription Opioid Use. Follow up: Private Physician; When: 2 - 3 days; Reason: Recheck today's complaints, Continuance of care, Re-evaluation by your physician. Problem is new. Symptoms have improved. ori
--- NOTE | 2017-12-04 07:49 | RAD REPORT ---
EXAM DESCRIPTION: RAD - Chest Single View - 12/04/2017 4:52 am CLINICAL HISTORY: Cough, abdominal pain with vomiting COMPARISON: None. TECHNIQUE: AP portable chest image was obtained [id number] . FINDINGS: Lungs are clear. Heart and vasculature are normal. No measurable pleural effusion and no p neumothorax. No acute bony abnormality seen. No acute aortic findings suspected. IMPRESSION: No acute cardiopulmonary process.
== END 2017-12-04 05:32 | disposition home or self-care (01) ==
LOC: ER 04:14
DX: R53.1 Weakness (principal); R50.9 Fever, unspecified; R53.81 Other malaise; R53.83 Other fatigue; F17.210 Nicotine dependence, cigarettes, uncomplicated
CPT/HCPCS: 71045; 87804; 99284

== ENCOUNTER 2018-06-15 16:09 | Emergency (ER) | payer SELFPAY ==
--- NOTE | 2018-06-15 16:40 | ER ---
Nurse's Notes [facility] Name: Jasen Mcqueen Age: 23 yrs Sex: Male : 1995 Arrival Date: 06/15/2018 Time: 16:09 Bed 28 Private MD: Diagnosis: Acute pharyngitis Presentation: 06/15 16:32 Presenting complaint: Patient states: Sore throat since last night, denies fever. aj1 Transition of care: patient was not received from another setting of care. Onset of symptoms was June 14, 2018. Risk Assessment: Do you want to hurt yourself or someone else? Patient reports no desire to harm self or others. Initial Sepsis Screen: Does the patient meet any 2 criteria? No. Patient's initial sepsis screen is negative. Does the patient have a suspected source of infection? No. Patient's initial sepsis screen is negative. Care prior to arrival: None. 16:32 Method Of Arrival: Ambulatory aj1 16:32 Acuity: UZIEL 4 aj1 Triage Assessment: 16:34 General: Appears in no apparent distress. comfortable, Behavior is calm, cooperative, aj1 appropriate for age. Pain: Complains of pain in left aspect of posterior pharynx and right aspect of posterior pharynx. EENT: Reports sore throat. Historical: - Allergies: 16:34 No Known Allergies; aj1 - Home Meds: 16:34 None [Active]; aj1 - PMHx: 16:34 Asthma; aj1 - PSHx: 16:34 None; aj1 - Immunization history:: Adult Immunizations up to date. - Social history:: Smoking status: Patient uses tobacco products, smokes one pack cigarettes per day. - Ebola Screening: : Patient denies travel to an Ebola-affected area in the 21 days before illness onset. Screenin:45 Abuse screen: Denies threats or abuse. Denies injuries from another. Nutritional aj1 screening: No deficits noted. Tuberculosis screening: No symptoms or risk factors identified. Fall Risk None identified. Assessment: 16:45 General: Appears in no apparent distress. comfortable, Behavior is calm, cooperative, aj1 appropriate for age. Pain: Complains of pain in right aspect of posterior pharynx and left aspect of posterior pharynx. Neuro: Level of Consciousness is awake, alert, obeys commands, Oriented to person, place, time, situation. Cardiovascular: Patient's skin is warm and dry. Respiratory: Airway is patent Respiratory effort is even, unlabored, Respiratory pattern is regular, symmetrical, Breath sounds are clear bilaterally. GI: No signs and/or symptoms were reported involving the gastrointestinal system. : No signs and/or symptoms were reported regarding the genitourinary system. EENT: Throat is reddened bilaterally Reports sore throat. Derm: Skin is pink, warm \T\ dry. normal. Musculoskeletal: Circulation, motion, and sensation intact. Vital Signs: 16:34 BP 133 / 74; Pulse 71; Resp 18; Temp 98.1; Pulse Ox 99% on R/A; aj1 ED Course: 16:09 Patient arrived in ED. as 16:10 [facility] kb 16:10 Dandy Hidalgo MD is Attending Physician. kb 16:24 Strep Sent. aj1 16:32 Jossy Valerio, RN is Primary Nurse. aj1 16:34 Triage completed. aj1 16:34 Arm band placed on. aj1 16:45 No provider procedures requiring assistance completed. Patient did not have IV access aj1 during this emergency room visit. 16:45 Patient has correct armband on for positive identification. aj1 Administered Medications: No medications were administered Outcome: 16:39 Discharge ordered by . kb 16:45 Discharged to home ambulatory. aj1 16:45 Condition: good 16:45 Discharge instructions given to patient, Instructed on discharge instructions, follow up and referral plans. Demonstrated understanding of instructions, follow-up care. 16:47 Patient left the ED. aj1 Signatures: Jody Jensen FNP-C FNP-Jossy Stein, RN RN meg1 Naila Garcia as
--- NOTE | 2018-06-15 16:40 | EDPHYS ---
Physician Documentation [facility] Name: Jasen Mcqueen Age: 23 yrs Sex: Male : 1995 Arrival Date: 06/15/2018 Time: 16:09 Bed 28 Private MD: ELDER Physician Dandy Hidalgo HPI: 06/15 16:33 This 23 yrs old Male presents to ER via Ambulatory with complaints of Sore kb Throat. 16:33 The patient presents with sore throat. The patient describes throat pain as constant. kb Onset: The symptoms/episode began/occurred last night. Severity of symptoms: At their worst the symptoms were moderate, in the emergency department the symptoms are unchanged. Modifying factors: The symptoms are alleviated by nothing, the symptoms are aggravated by swallowing, Patient's oral intake status: good. Associated signs and symptoms: Pertinent positives: Sore throat Pertinent negatives chest pain, chills, cough, diarrhea, dysphagia, earache, fever, flu-like symptoms, headache, nausea, rhinorrhea, shortness of breath, vomiting. The patient has not experienced similar symptoms in the past. The patient has not recently seen a physician. Historical: - Allergies: 16:34 No Known Allergies; aj1 - Home Meds: 16:34 None [Active]; aj1 - PMHx: 16:34 Asthma; aj1 - PSHx: 16:34 None; aj1 - Immunization history:: Adult Immunizations up to date. - Social history:: Smoking status: Patient uses tobacco products, smokes one pack cigarettes per day. - Ebola Screening: : Patient denies travel to an Ebola-affected area in the 21 days before illness onset. ROS: 16:33 Constitutional: Negative for fever, chills, and weight loss, Cardiovascular: Negative kb for chest pain, palpitations, and edema, Respiratory: Negative for shortness of breath, cough, wheezing, and pleuritic chest pain, Abdomen/GI: Negative for abdominal pain, nausea, vomiting, diarrhea, and constipation, MS/Extremity: Negative for injury and deformity, Skin: Negative for injury, rash, and discoloration, Neuro: Negative for headache, weakness, numbness, tingling, and seizure. 16:33 ENT: Positive for sore throat. Exam: 16:32 Constitutional: This is a well developed, well nourished patient who is awake, alert, kb and in no acute distress. Head/Face: Normocephalic, atraumatic. Chest/axilla: Normal chest wall appearance and motion. Nontender with no deformity. No lesions are appreciated. Cardiovascular: Regular rate and rhythm with a normal S1 and S2. No gallops, murmurs, or rubs. Normal PMI, no JVD. No pulse deficits. Respiratory: Lungs have equal breath sounds bilaterally, clear to auscultation and percussion. No rales, rhonchi or wheezes noted. No increased work of breathing, no retractions or nasal flaring. Abdomen/GI: Soft, non-tender, with normal bowel sounds. No distension or tympany. No guarding or rebound. No evidence of tenderness throughout. Skin: Warm, dry with normal turgor. Normal color with no rashes, no lesions, and no evidence of cellulitis. MS/ Extremity: Pulses equal, no cyanosis. Neurovascular intact. Full, normal range of motion. Neuro: Awake and alert, GCS 15, oriented to person, place, time, and situation. Cranial nerves II-XII grossly intact. Motor strength 5/5 in all extremities. Sensory grossly intact. Cerebellar exam normal. Normal gait. 16:32 ENT: Posterior pharynx: Airway: normal, no evidence of obstruction, Tonsils: bilaterally enlarged, with erythema, Uvula: normal, midline, swelling, that is mild, erythema, that is moderate, exudate, is not appreciated. Vital Signs: 16:34 BP 133 / 74; Pulse 71; Resp 18; Temp 98.1; Pulse Ox 99% on R/A; aj1 MDM: 16:22 Patient medically screened. kb 16:32 Data reviewed: vital signs, nurses notes. Data interpreted: Pulse oximetry: on room air kb is 98 %. Interpretation: normal. 16:38 Counseling: I had a detailed discussion with the patient and/or guardian regarding: the kb historical points, exam findings, and any diagnostic results supporting the discharge/admit diagnosis, lab results, the need for outpatient follow up, a family practitioner, to return to the emergency department if symptoms worsen or persist or if there are any questions or concerns that arise at home. 06/15 16:22 Order name: Strep; Complete Time: 16:38 kb 06/15 16:38 Order name: Throat Culture EDMS Administered Medications: No medications were administered Disposition: 06/16 08:19 Co-signature as Attending Physician, Dandy Hidalgo MD I agree with the assessment and ori plan of care. Disposition: 06/15/18 16:39 Discharged to Home. Impression: Acute pharyngitis. - Condition is Stable. - Discharge Instructions: Pharyngitis, [id number], Sore Throat, [id number]. - Medication Reconciliation Form, Thank You Letter, Antibiotic Education, Prescription Opioid Use form. - Follow up: Emergency Department; When: As needed; Reason: Worsening of condition. Follow up: Private Physician; When: 2 - 3 days; Reason: Recheck today's complaints, Continuance of care, Re-evaluation by your physician. Signatures: Dispatcher [employer] EDMS Jody Jensen, MADINA-Vanna PAINTER-Jossy Stein RN RN aj1 Dandy Hidalgo MD MD ori Corrections: (The following items were deleted from the chart) 06/15 16:47 16:39 06/15/2018 16:39 Discharged to Home. Impression: Acute pharyngitis. Condition is aj1 Stable. Forms are Medication Reconciliation Form, Thank You Letter, Antibiotic Education, Prescription Opioid Use. Follow up: Emergency Department; When: As needed; Reason: Worsening of condition. Follow up: Private Physician; When: 2 - 3 days; Reason: Recheck today's complaints, Continuance of care, Re-evaluation by your physician. kb
== END 2018-06-15 16:47 | disposition home or self-care (01) ==
LOC: ER 16:09
DX: J02.9 Acute pharyngitis, unspecified (principal); F17.210 Nicotine dependence, cigarettes, uncomplicated
CPT/HCPCS: 87070; 87081; 99283

== ENCOUNTER 2018-11-06 10:30 | Emergency (ER) | payer SELFPAY ==
[2018-11-06] MEDS ORDERED: ONDANSETRON 4 MG/2 ML VIAL ONE (11:04)
[2018-11-06] MEDS ORDERED: NA CHLORIDE 0.9% 1,000 ML ONE (11:04)
[2018-11-06] MEDS ORDERED: FENTANYL CITR 100 MCG/2 ML ONE (11:04)
[2018-11-06] MEDS ORDERED: KETOROLAC 30 MG/ML INJ ONE (11:04)
[2018-11-06 11:18] LABS: Basophils % 0.9 % (0-1.3); Hematocrit 42.3 % (39.6-49.0); Lymphocytes % 31.5 % (15.3-44.8); MPV 9.3 fL (7.6-11.3); RBC Red Blood Cell Count 4.85 M/uL (4.33-5.43)
[2018-11-06] MEDS ORDERED: HYDROMORPHONE HCL 0.5 MG/0.5 ML INJ ONE (11:30)
--- NOTE | 2018-11-06 11:33 | RAD REPORT ---
EXAM DESCRIPTION: CT - Stone Protocol - 11/06/2018 11:10 am CLINICAL HISTORY: Abdominal pain. Hematuria COMPARISON: 2018 TECHNIQUE: Computed axial tomography of the abdomen pelvis was obtained without oral or IV contrast. Lack of IV and oral contrast limits evaluation of solid organs, bowel, and vessels. Coronal reformat tita images were obtained and reviewed. All CT scans are performed using dose optimization technique as appropriate and may include automated exposure control or mA/KV adjustment according to patient size. FINDINGS: Small bilateral renal calculi. Mild right hydronephrosis. 4 millimeter calculus proximal r ight ureter. Hounsfield unit 1386 The liver, spleen, pancreas and adrenals appear grossly normal There is no evidence of diverticulitis. The appendix appears normal IMPRESSION: 4 millimeter calculus proximal right ureter resulting in mild right hydronephrosis
[2018-11-06 11:39] LABS: BUN Blood Urea Nitrogen 12 mg/dL (7-18); Bicarbonate 25 mmol/L (21-32); Glucose Level 126 mg/dL (74-106); Potassium 3.6 mmol/L (3.5-5.1); Sodium Level 142 mmol/L (136-145)
[2018-11-06 11:48] LABS: Urine Blood 3+ (NEG); Urine Glucose NEGATIVE (NEG); Urine Protein 2+ (NEG); Urine Specific Gravity 1.025 (1.005-1.030); Urine pH 5.5 (5.0-7.0)
[2018-11-06] MEDS ORDERED: TAMSULOSIN 0.4 MG SR CAP ONE (12:38)
--- NOTE | 2018-11-06 12:59 | ER ---
Nurse's Notes [facility] Name: Jasen Mcqueen Age: 23 yrs Sex: Male : 1995 Arrival Date: 11/06/2018 Time: 10:31 Bed 5 Private MD: None, None Diagnosis: Hydronephrosis with renal and ureteral calculous obstruction Presentation: 11/06 10:55 Presenting complaint: Patient states: right flank pain with bloody urine started 1 hour jl7 ago. 10:55 Transition of care: patient was not received from another setting of care. Onset of jl7 symptoms was November 06, 2018 at 10:00. Risk Assessment: Do you want to hurt yourself or someone else? Patient reports no desire to harm self or others. Initial Sepsis Screen: Does the patient meet any 2 criteria? No. Patient's initial sepsis screen is negative. Does the patient have a suspected source of infection? No. Patient's initial sepsis screen is negative. Care prior to arrival: None. 10:55 Method Of Arrival: Ambulatory jl7 10:55 Acuity: UZIEL 3 jl7 Triage Assessment: 11:00 General: Appears in no apparent distress. uncomfortable, Behavior is cooperative, jl7 crying. Pain: Complains of pain in right mid back Pain currently is 10 out of 10 on a pain scale. Pain began 1 hour ago. Is continuous, Noted to be crying, grimacing, guarding, moaning. EENT: No signs and/or symptoms were reported regarding the EENT system. Neuro: Level of Consciousness is awake, alert, obeys commands, Oriented to person, place, time, situation. Cardiovascular: Patient's skin is warm and dry. Respiratory: Airway is patent Respiratory effort is even, unlabored, Respiratory pattern is regular, symmetrical. GI: Abdomen is round non-distended, Bowel sounds present X 4 quads. Abd is soft and non tender X 4 quads. : Reports pain in right flank(s). Derm: Skin is diaphoretic, Skin is pale, Skin temperature is warm. Musculoskeletal: No deficits noted. Historical: - Allergies: 11:08 No Known Allergies; jl7 - Home Meds: 11:08 None [Active]; jl7 - PMHx: 11:08 Asthma; Kidney stones; jl7 - PSHx: 11:08 None; jl7 - Immunization history:: Adult Immunizations unknown. - Social history:: Smoking status: Patient uses tobacco products, smokes one-half pack cigarettes per day. - Ebola Screening: : No symptoms or risks identified at this time. Screenin:14 Abuse screen: Denies threats or abuse. Denies injuries from another. Nutritional jl7 screening: No deficits noted. Tuberculosis screening: No symptoms or risk factors identified. Fall Risk IV access (20 points). Total Paredes Fall Scale indicates No Risk (0-24 pts). Assessment: 11:00 General: See triage assessment. jl7 11:45 Reassessment: Patient states feeling better. Patient states symptoms have improved. jl7 12:39 Reassessment: Patient appears in no apparent distress at this time. No changes from jl7 previously documented assessment. Patient and/or family updated on plan of care and expected duration. Pain level reassessed. Patient is alert, oriented x 3, equal unlabored respirations, skin warm/dry/pink. Vital Signs: 11:00 BP 150 / 99; Pulse 90; Resp 16 S; Pulse Ox 98% on R/A; Weight 90.72 kg (R); Pain 10/10; jl7 11:22 Temp 98.1(O); jl7 12:39 BP 140 / 86; Pulse 78; Resp 16; Pulse Ox 99% on R/A; jl7 ED Course: 10:31 Patient arrived in ED. mr 10:32 None, None is Private Physician. mr 10:47 Dandy De Leon PA is PHCP. cp 10:47 Dandy Hidalgo MD is Attending Physician. cp 10:47 Trey Quarles, MARY LOU is Primary Nurse. jl7 10:54 PHCP role handed off by Dandy De Leon PA jr8 10:54 Fermín Travis PA is PHCP. jr8 11:00 Arm band placed on right wrist. jl7 11:08 Triage completed. jl7 11:10 CT completed. Patient tolerated procedure well. Patient moved back from CT. mw3 11:11 CT Stone Protocol In Process Unspecified. EDMS 11:14 Patient has correct armband on for positive identification. Placed in gown. Bed in low jl7 position. Call light in reach. Side rails up X 1. Pulse ox on. NIBP on. 11:14 Initial lab(s) drawn, by me, sent to lab. Urine collected: clean catch specimen, odalis jl7 blood. Inserted saline lock: 20 gauge in right antecubital area, using aseptic technique. Blood collected. 12:57 Russell Olivares MD is Referral Physician. jr8 13:10 No provider procedures requiring assistance completed. IV discontinued, intact, jl7 bleeding controlled, No redness/swelling at site. Pressure dressing applied. Administered Medications: 11:05 Drug: fentaNYL (PF) 50 mcg Route: IVP; Site: right antecubital; jl7 11:20 Follow up: Response: No adverse reaction; Pain is unchanged, physician notified jl7 11:06 Drug: Zofran 4 mg Route: IVP; Site: right antecubital; jl7 11:24 Follow up: Response: No adverse reaction jl7 11:18 Drug: NS 0.9% 500 ml Route: IV; Rate: bolus; Site: right antecubital; jl7 12:00 Follow up: Response: No adverse reaction; IV Status: Completed infusion; IV Intake: jl7 500ml 11:22 Drug: TORadol - Ketorolac 15 mg Route: IVP; Site: right antecubital; jl7 11:30 Follow up: Response: No adverse reaction; Pain is unchanged, physician notified jl7 11:30 Drug: Dilaudid 0.5 mg Route: IVP; Site: right antecubital; jl7 11:45 Follow up: Response: No adverse reaction; Pain is decreased jl7 12:37 Drug: Flomax 0.4 mg Route: PO; jl7 13:11 Follow up: Response: No adverse reaction jl7 13:11 Not Given (Patient Refused): B[place] (7.5 mg-325 mg) 1 tabs PO once; RASS on ADMIN: jl7 Combtv4, Very Agttd3, Agttd2, Rstlss1, AlertClm0, Drwsy-1, Lt Sdtn-2, Mod Sdtn-3, Dp Sdtn-4, UnArsble-5 Intake: 12:00 IV: 500ml; Total: 500ml. jl7 Outcome: 12:58 Discharge ordered by . jr8 13:10 Discharged to home ambulatory. jl7 13:10 Condition: stable 13:10 Discharge instructions given to patient, family, Instructed on discharge instructions, follow up and referral plans. medication usage, Demonstrated understanding of instructions, follow-up care, medications, Prescriptions given X 4. 13:11 Patient left the ED. jl7 Signatures: Dispatcher [employer] ELDERKY Feli Delgadillo ThaddeusFermín PA PA jr8 Dandy De Leon PA PA cp Leal, Jahala, RN RN jl7 Denise Soto mw3
--- NOTE | 2018-11-06 12:59 | EDPHYS ---
Physician Documentation [facility] Name: Jasen Mcqueen Age: 23 yrs Sex: Male : 1995 Arrival Date: 11/06/2018 Time: 10:31 Bed 5 Private MD: None, None ED Physician Dandy Hidalgo HPI: 11/06 11:10 This 23 yrs old Male presents to ER via Ambulatory with complaints of jr8 Possible Kidney Stone. 11:10 The patient complains of pain in the right flank. The pain does not radiate. Onset: The jr8 symptoms/episode began/occurred acutely, today. Modifying factors: The symptoms are alleviated by nothing. the symptoms are aggravated by nothing. Associated signs and symptoms: Pertinent positives: dysuria. Severity of pain: At its worst the pain was moderate in the emergency department the pain is unchanged. The patient has experienced a previous episode. The patient has not recently seen a physician. History of renal stones in past. Stated that about an hour ago started to have similar pain and now having hematuria and dysuria . Historical: - Allergies: 11:08 No Known Allergies; jl7 - Home Meds: 11:08 None [Active]; jl7 - PMHx: 11:08 Asthma; Kidney stones; jl7 - PSHx: 11:08 None; jl7 - Immunization history:: Adult Immunizations unknown. - Social history:: Smoking status: Patient uses tobacco products, smokes one-half pack cigarettes per day. - Ebola Screening: : No symptoms or risks identified at this time. ROS: 11:10 Eyes: Negative for injury, pain, redness, and discharge, ENT: Negative for injury, jr8 pain, and discharge, Neck: Negative for injury, pain, and swelling, Cardiovascular: Negative for chest pain, palpitations, and edema, Respiratory: Negative for shortness of breath, cough, wheezing, and pleuritic chest pain, Abdomen/GI: Negative for abdominal pain, nausea, vomiting, diarrhea, and constipation, MS/Extremity: Negative for injury and deformity, Skin: Negative for injury, rash, and discoloration, Neuro: Negative for headache, weakness, numbness, tingling, and seizure. 11:10 Back: Positive for pain at rest, flank pain. 11:10 : Positive for hematuria. Exam: 11:10 Eyes: Pupils equal round and reactive to light, extra-ocular motions intact. Lids and jr8 lashes normal. Conjunctiva and sclera are non-icteric and not injected. Cornea within normal limits. Periorbital areas with no swelling, redness, or edema. ENT: Nares patent. No nasal discharge, no septal abnormalities noted. Tympanic membranes are normal and external auditory canals are clear. Oropharynx with no redness, swelling, or masses, exudates, or evidence of obstruction, uvula midline. Mucous membranes moist. Neck: Trachea midline, no thyromegaly or masses palpated, and no cervical lymphadenopathy. Supple, full range of motion without nuchal rigidity, or vertebral point tenderness. No Meningismus. Cardiovascular: Regular rate and rhythm with a normal S1 and S2. No gallops, murmurs, or rubs. Normal PMI, no JVD. No pulse deficits. Respiratory: Lungs have equal breath sounds bilaterally, clear to auscultation and percussion. No rales, rhonchi or wheezes noted. No increased work of breathing, no retractions or nasal flaring. Abdomen/GI: Soft, non-tender, with normal bowel sounds. No distension or tympany. No guarding or rebound. No evidence of tenderness throughout. Skin: Warm, dry with normal turgor. Normal color with no rashes, no lesions, and no evidence of cellulitis. MS/ Extremity: Pulses equal, no cyanosis. Neurovascular intact. Full, normal range of motion. Neuro: Awake and alert, GCS 15, oriented to person, place, time, and situation. Cranial nerves II-XII grossly intact. Motor strength 5/5 in all extremities. Sensory grossly intact. Cerebellar exam normal. Normal gait. 11:10 Back: pain, that is moderate, of the right flank, ROM is normal, normal spinal alignment noted, CVA tenderness, that is mild, is noted on the right, muscle spasm, is not present. Vital Signs: 11:00 BP 150 / 99; Pulse 90; Resp 16 S; Pulse Ox 98% on R/A; Weight 90.72 kg (R); Pain 10/10; jl7 11:22 Temp 98.1(O); jl7 12:39 BP 140 / 86; Pulse 78; Resp 16; Pulse Ox 99% on R/A; jl7 MDM: 10:[address] [facility] 12:56 Data reviewed: vital signs, nurses notes, lab test result(s), radiologic studies, and jr8 as a result, I will discharge patient. Data interpreted: Pulse oximetry: on room air is 99 %. Counseling: I had a detailed discussion with the patient and/or guardian regarding: the historical points, exam findings, and any diagnostic results supporting the discharge/admit diagnosis, the presence of at least one elevated blood pressure reading (>120/80) during this emergency department visit, lab results, radiology results, the need for outpatient follow up. Response to treatment: the patient's symptoms have markedly improved after treatment. ED course: Pt pain controlled in ED, comfortable, tolerating PO. 11/06 10:55 Order name: Basic Metabolic Panel; Complete Time: 11/06 10:55 Order name: CBC with Diff; Complete Time: 11/06 10:55 Order name: Creatinine for Radiology; Complete Time: :11/06 10:55 Order name: CT Stone Protocol; Complete Time: 11/06 11:03 Order name: Urine Dipstick--Ancillary (enter results); Complete Time: 11:49 eb 11/06 10:55 Order name: IV Saline Lock; Complete Time: 11:16 11/06 10:55 Order name: Labs collected and sent; Complete Time: 11:16 Administered Medications: 11:05 Drug: fentaNYL (PF) 50 mcg Route: IVP; Site: right antecubital; [facility] 11:20 Follow up: Response: No adverse reaction; Pain is unchanged, physician notified jl7 11:06 Drug: Zofran 4 mg Route: IVP; Site: right antecubital; 7 11:24 Follow up: Response: No adverse reaction jl 11:18 Drug: NS 0.9% 500 ml Route: IV; Rate: bolus; Site: right antecubital; jl7 12:00 Follow up: Response: No adverse reaction; IV Status: Completed infusion; IV Intake: jl7 500ml 11:22 Drug: TORadol - Ketorolac 15 mg Route: IVP; Site: right antecubital; 7 11:30 Follow up: Response: No adverse reaction; Pain is unchanged, physician notified [facility] 11:30 Drug: Dilaudid 0.5 mg Route: IVP; Site: right antecubital; jl7 11:45 Follow up: Response: No adverse reaction; Pain is decreased jl7 12:37 Drug: Flomax 0.4 mg Route: PO; jl7 13:11 Follow up: Response: No adverse reaction jl7 13:11 Not Given (Patient Refused): [place] (7.5 mg-325 mg) 1 tabs PO once; RASS on ADMIN: jl7 Combtv4, Very Agttd3, Agttd2, Rstlss1, AlertClm0, Drwsy-1, Lt Sdtn-2, Mod Sdtn-3, Dp Sdtn-4, UnArsble-5 Disposition: 11/06/18 12:58 Discharged to Home. Impression: Hydronephrosis with renal and ureteral calculous obstruction. - Condition is Stable. - Discharge Instructions: Kidney Stones, Hydronephrosis. - Prescriptions for Cipro 500 mg Oral Tablet - take 1 tablet by ORAL route every 12 hours for 5 days; 10 tablet. Ibuprofen 800 mg Oral Tablet - take 1 tablet by ORAL route every 12 hours As needed take with food; 20 tablet. Tylenol- Codeine #3 300-30 mg Oral Tablet - take 1 tablet by ORAL route every 6 hours As needed; 12 tablet. Flomax 0.4 mg Oral Capsule, Sust. Release 24 hr - take 1 capsule by ORAL route once daily 1/2 hour following the same meal each day; 20 capsule. - Medication Reconciliation Form, Thank You Letter, Antibiotic Education, Prescription Opioid Use, Work release form form. - Follow up: Russell Olivares MD; When: 2 - 3 days; Reason: Recheck today's complaints, Re-evaluation by your physician. - Problem is new. - Symptoms have improved. Addendum: 11/08/2018 08:00 Co-signature as Attending Physician, Dandy Hidalgo MD I agree with the assessment and c beckham plan of care. Signatures: Dispatcher [employer] Dandy Bates MD MD cha Roszak, Josh, PA PA jr8 Trey Quarles RN RN jl7 Corrections: (The following items were deleted from the chart) 11/06 13:11 12:58 11/06/2018 12:58 Discharged to Home. Impression: Hydronephrosis with renal and jl7 ureteral calculous obstruction. Condition is Stable. Forms are Medication Reconciliation Form, Thank You Letter, Antibiotic Education, Prescription Opioid Use. Follow up: Russell Olivares; When: 2 - 3 days; Reason: Recheck today's complaints, Re-evaluation by your physician. Problem is new. Symptoms have improved. jr8
[2018-11-06] MEDS ORDERED: HYDROCODONE/APAP 7.5/325 MG TAB ONE (13:09)
[2018-11-06 13:29] VITALS: TEMP 98.1
[2018-11-06 13:30] VITALS: BP 140/86; O2SAT 99
== END 2018-11-06 13:11 | disposition home or self-care (01) ==
LOC: ER 10:30
DX: N13.2 Hydronephrosis with renal and ureteral calculous obstruction (principal); F17.210 Nicotine dependence, cigarettes, uncomplicated; Z87.442 Personal history of urinary calculi
CPT/HCPCS: 36415; 74176; 76377; 80048; 81003; 85025; 96361; 96374; 96375; 99284; J1170; J2405; J3010; J7030

== ENCOUNTER 2018-11-13 09:28 | Emergency (ER) | payer SELFPAY ==
[2018-11-13] MEDS ORDERED: TAMSULOSIN 0.4 MG SR CAP ONE (09:54)
[2018-11-13] MEDS ORDERED: KETOROLAC 30 MG/ML INJ ONE (09:54)
[2018-11-13] MEDS ORDERED: NA CHLORIDE 0.9% 1,000 ML ONE (09:54)
[2018-11-13 09:59] LABS: Urine Blood 2+ (NEG); Urine Glucose NEGATIVE (NEG); Urine Protein NEGATIVE (NEG); Urine pH 5.5 (5.0-7.0)
--- NOTE | 2018-11-13 10:19 | RAD REPORT ---
EXAM DESCRIPTION: CT - Stone Protocol - 11/13/2018 10:00 am CLINICAL HISTORY: Abdominal pain. COMPARISON: November 06, 2018 TECHNIQUE: Computed axial tomography of the abdomen pelvis was obtained without oral or IV contrast. Lack of IV and oral contrast limits evaluation of solid organs, bowel, and vessels. Coronal reformat tita images were obtained and reviewed. All CT scans are performed using dose optimization technique as appropriate and may include automated exposure control or mA/KV adjustment according to patient size. FINDINGS: A small left renal calculus is present. No left hydronephrosis Mioderate right hydronephrosis. 4 millimeter calculus within the proximal right ureter has migrated 1 centimeter inferiorly since the prior exam. The liver, spleen, pancreas and adrenals appear grossly normal There is no evidence of diverticulitis. The appendix appears normal IMPRESSION: 4 millimeter calculus proximal right ureter resulting in moderate right hydronephrosis
[2018-11-13 10:23] LABS: Urine Bacteria NONE SEEN /HPF (NONE SEEN)
[2018-11-13 10:24] LABS: Urine Culture Reflex Order NOT NEEDED
[2018-11-13 10:32] LABS: Absolute Lymphocytes (CBC) 2.5 K/uL (0.7-4.9); Basophils % 0.9 % (0-1.3); Hematocrit 40.7 % (39.6-49.0); MPV 9.3 fL (7.6-11.3); RBC Red Blood Cell Count 4.64 M/uL (4.33-5.43)
[2018-11-13 10:39] LABS: Potassium 3.7 mmol/L (3.5-5.1)
--- NOTE | 2018-11-13 11:01 | ER ---
Nurse's Notes [facility] Name: Jasen Mcqueen Age: 23 yrs Sex: Male : 1995 Arrival Date: 11/13/2018 Time: 09:30 Bed 19 Private MD: None, None Diagnosis: Nephrolithiasis Presentation: 11/13 09:41 Presenting complaint: Patient states: was here last week for kidney stone, symptoms em have not resolved, denies fever. Transition of care: patient was not received from another setting of care. Onset of symptoms was November 07, 2018. Risk Assessment: Do you want to hurt yourself or someone else? Patient reports no desire to harm self or others. Initial Sepsis Screen: Does the patient meet any 2 criteria? No. Patient's initial sepsis screen is negative. Does the patient have a suspected source of infection? No. Patient's initial sepsis screen is negative. Care prior to arrival: None. 09:41 Method Of Arrival: Ambulatory em 09:52 Acuity: UZIEL 3 aa5 Historical: - Allergies: :44 No Known Allergies; em - Home Meds: :44 None [Active]; em - PMHx: 09:44 Asthma; Kidney stones; em - PSHx: 09:44 None; em - Immunization history:: Adult Immunizations up to date. - Social history:: Smoking status: Patient uses tobacco products, denies chronic smoking, but will smoke occasionally. - Ebola Screening: : Patient negative for fever greater than or equal to 101.5 degrees Fahrenheit, and additional compatible Ebola Virus Disease symptoms Patient denies exposure to infectious person Patient denies travel to an Ebola-affected area in the 21 days before illness onset No symptoms or risks identified at this time. - Family history:: not pertinent. - Hospitalizations: : No recent hospitalization is reported. Screenin:44 Abuse screen: Denies threats or abuse. Nutritional screening: No deficits noted. em Tuberculosis screening: No symptoms or risk factors identified. Fall Risk None identified. Assessment: 09:44 General: Appears in no apparent distress. comfortable, Behavior is calm, cooperative, em Denies fever. Pain: Complains of pain in mid back area Pain currently is 5 out of 10 on a pain scale. Quality of pain is described as sharp. Neuro: Level of Consciousness is awake, alert, obeys commands, Oriented to person, place, time, situation, Appropriate for age. Cardiovascular: Capillary refill < 3 seconds Patient's skin is warm and dry. Respiratory: Airway is patent Respiratory effort is even, unlabored, Respiratory pattern is regular, symmetrical. GI: Abdomen is flat, Bowel sounds present X 4 quads. Abd is soft and non tender X 4 quads. Patient currently denies nausea, vomiting. : Denies burning with urination. Derm: Skin is intact, is healthy with good turgor, Skin is pink, warm \T\ dry. Musculoskeletal: Capillary refill < 3 seconds, Range of motion: intact in all extremities. 09:44 Reassessment: Reassessment: I agree with assessment completed by River Ross LVN . aa5 10:30 Reassessment: Patient appears in no apparent distress at this time. Patient and/or em family updated on plan of care and expected duration. Pain level reassessed. Patient is alert, oriented x 3, equal unlabored respirations, skin warm/dry/pink. Patient states symptoms have improved. 11:10 Reassessment: pending completion of IV magnesium before being discharge. em 12:24 Reassessment: Patient appears in no apparent distress at this time. Patient and/or em family updated on plan of care and expected duration. Pain level reassessed. Patient is alert, oriented x 3, equal unlabored respirations, skin warm/dry/pink. Patient denies pain at this time. Patient states feeling better. Patient states symptoms have improved. Vital Signs: 09:44 BP 128 / 90; Pulse 81; Resp 18; Temp 98.3(O); Pulse Ox 99% on R/A; Weight 90.72 kg; em Height 5 ft. 9 in. (175.26 cm); Pain 5/10; 10:30 BP 126 / 81; Pulse 78; Resp 18; Pulse Ox 99% on R/A; Pain 0/10; em 12:24 BP 127 / 84; Pulse 76; Resp 18; Pulse Ox 99% on R/A; Pain 0/10; em 09:44 Body Mass Index 29.54 (90.72 kg, 175.26 cm) em ED Course: 09:30 Patient arrived in ED. ag5 09:30 None, None is Private Physician. ag5 09:30 Gianni Rinaldi MD is Attending Physician. rn 09:41 River Ross LVN is Primary Nurse. em 09:44 Arm band placed on. em 09:44 Patient has correct armband on for positive identification. Placed in gown. Bed in low em position. Adult w/ patient. Pulse ox on. NIBP on. 09:52 Triage completed. aa5 10:00 CT completed. Patient tolerated procedure well. Patient moved back from CT. mw3 10:01 CT Stone Protocol In Process Unspecified. EDMS 10:21 Initial lab(s) drawn, by me, sent to lab. Urine collected: clean catch specimen, clear. em Inserted saline lock: 20 gauge in right antecubital area, using aseptic technique. Blood collected. 12:23 No provider procedures requiring assistance completed. IV discontinued, intact, em bleeding controlled, No redness/swelling at site. Pressure dressing applied. Administered Medications: 10:20 Drug: NS 0.9% 1000 ml Route: IV; Rate: 1000 ml; Site: right antecubital; em 11:46 Follow up: IV Status: Completed infusion; IV Intake: 1000ml em 10:21 Drug: Flomax 0.4 mg Route: PO; em 11:04 Follow up: Response: No adverse reaction em 10:21 Drug: TORadol - Ketorolac 15 mg Route: IVP; Site: right antecubital; aa5 11:11 Follow up: Response: No adverse reaction; Marked relief of symptoms; Pain is decreased em 11:12 Drug: Magnesium Sulfate 1 grams Route: IVPB; Infused Over: 1 hrs; Site: right em antecubital; 12:24 Follow up: Response: No adverse reaction; IV Status: Completed infusion; IV Intake: em 100ml Intake: 11:46 IV: 1000ml; Total: 1000ml. em 12:24 IV: 100ml; Total: 1100ml. em Outcome: 11:01 Discharge ordered by . rn 12:23 Discharged to home ambulatory. em 12:23 Condition: good 12:23 Discharge instructions given to patient, family, Instructed on discharge instructions, follow up and referral plans. medication usage, Demonstrated understanding of instructions, follow-up care, medications, Prescriptions given X 1. 12:26 Patient left the ED. em Signatures: Dispatcher [employer] EDID River Ross LVN LVN em Gianni Rinaldi MD MD rn Calderon, Audri, RN RN aa5 Denise Soto mw3 Hazel Moore ag5 Corrections: (The following items were deleted from the chart) 09:56 09:44 BP 128 / 90; Pulse 81bpm; Resp 18bpm; Pulse Ox 99% RA; 90.72 kg; Height 5 ft. 9 em in.; BMI: 29.5; Pain 5/10; em 18:40 18:37 Reassessment: ruth miranda
--- NOTE | 2018-11-13 11:02 | EDPHYS ---
Physician Documentation [facility] Name: Jasen Mcqueen Age: 23 yrs Sex: Male : 1995 Arrival Date: 11/13/2018 Time: 09:30 Bed 19 Private MD: None, None ED Physician Gianni Rinaldi HPI: 11/13 09:53 This 23 yrs old Male presents to ER via Ambulatory with complaints of rn Possible Kidney Stone. 09:53 The patient complains of pain in the mid back area. The pain radiates to the abdomen. rn Onset: The symptoms/episode began/occurred 1 week(s) ago. Modifying factors: The symptoms are alleviated by nothing. the symptoms are aggravated by nothing. Severity of pain: At its worst the pain was moderate in the emergency department the pain is unchanged. The patient has experienced a previous episode. Reports seen here last week for kidney stone, reports felt like got better, then pain returned, not as bad this time, feels lower, and radiates around to abdomen. No fever/vomiting. Denies abdominal pain.. Historical: - Allergies: 09:44 No Known Allergies; em - Home Meds: :44 None [Active]; em - PMHx: 09:44 Asthma; Kidney stones; em - PSHx: :44 None; em - Immunization history:: Adult Immunizations up to date. - Social history:: Smoking status: Patient uses tobacco products, denies chronic smoking, but will smoke occasionally. - Ebola Screening: : Patient negative for fever greater than or equal to 101.5 degrees Fahrenheit, and additional compatible Ebola Virus Disease symptoms Patient denies exposure to infectious person Patient denies travel to an Ebola-affected area in the 21 days before illness onset No symptoms or risks identified at this time. - Family history:: not pertinent. - Hospitalizations: : No recent hospitalization is reported. ROS: 09:53 Constitutional: Negative for fever, chills, and weight loss, Eyes: Negative for injury, rn pain, redness, and discharge, Neck: Negative for injury, pain, and swelling, Cardiovascular: Negative for chest pain, palpitations, and edema, Respiratory: Negative for shortness of breath, cough, wheezing, and pleuritic chest pain, Abdomen/GI: Negative for abdominal pain, nausea, vomiting, diarrhea, and constipation, Back: + right flank pain MS/Extremity: Negative for injury and deformity, Skin: Negative for injury, rash, and discoloration, Neuro: Negative for headache, weakness, numbness, tingling, and seizure. Exam: 09:53 Constitutional: This is a well developed, well nourished patient who is awake, alert, rn and in no acute distress. Ambulatory to room without assistance or distress Head/Face: Normocephalic, atraumatic. Eyes: Pupils equal round and reactive to light, extra-ocular motions intact. Lids and lashes normal. Conjunctiva and sclera are non-icteric and not injected. Cornea within normal limits. Periorbital areas with no swelling, redness, or edema. ENT: MMM Cardiovascular: Regular rate and rhythm. No pulse deficits. Respiratory: No increased work of breathing, no retractions or nasal flaring. Abdomen/GI: soft, non-tender Back: No spinal tenderness. No costovertebral tenderness. Full range of motion. MS/ Extremity: Pulses equal, no cyanosis. Neurovascular intact. Full, normal range of motion. Equal circumference. Neuro: Awake and alert, GCS 15, oriented to person, place, time, and situation. Cranial nerves II-XII grossly intact. Motor strength 5/5 in all extremities. Sensory grossly intact. Cerebellar exam normal. Normal gait. Vital Signs: 09:44 BP 128 / 90; Pulse 81; Resp 18; Temp 98.3(O); Pulse Ox 99% on R/A; Weight 90.72 kg; em Height 5 ft. 9 in. (175.26 cm); Pain 5/10; 10:30 BP 126 / 81; Pulse 78; Resp 18; Pulse Ox 99% on R/A; Pain 0/10; em 12:24 BP 127 / 84; Pulse 76; Resp 18; Pulse Ox 99% on R/A; Pain 0/10; em 09:44 Body Mass Index 29.54 (90.72 kg, 175.26 cm) em MDM: 09:30 Patient medically screened. rn 10:57 Differential diagnosis: nephrolithiasis, UTI. Differential diagnosis: pyelonephritis. rn Data reviewed: vital signs, nurses notes. Data reviewed: lab test result(s), radiologic studies, CT scan, and as a result, I will discharge patient. Counseling: I had a detailed discussion with the patient and/or guardian regarding: the historical points, exam findings, and any diagnostic results supporting the discharge/admit diagnosis, lab results, radiology results, the need for outpatient follow up, to return to the emergency department if symptoms worsen or persist or if there are any questions or concerns that arise at home. Response to treatment: the patient's symptoms have mildly improved after treatment, and as a result, I will discharge patient. Special discussion: I discussed with the patient/guardian in detail that at this point there is no indication for admission to the hospital. It is understood, however, that if the symptoms persist or worsen the patient needs to return immediately for re-evaluation. ED course: Pt with very small movement of kidney stone previously seen. No UTI or pyelonephritis. Offered admission for Urology consultation and possible intervention, patient chooses to go home, states didn't fill his flomax and would like to pass at home. Has never required intervention for kidney stones in past, and states wants to avoid surgery. States pain is better than before, and understands risks of going home. . 11/13 09:45 Order name: CBC with Diff; Complete Time: 10:56 rn 11/13 09:45 Order name: Basic Metabolic Panel; Complete Time: 10:56 rn 11/13 09:45 Order name: CT Stone Protocol; Complete Time: 10:23 rn 11/13 09:45 Order name: Urine Culture rn 11/13 09:45 Order name: Urine Microscopic Only; Complete Time: 10:29 rn 11/13 09:55 Order name: Urine Dipstick--Ancillary (enter results); Complete Time: 10:23 gm 11/13 09:45 Order name: IV Start; Complete Time: 10:21 rn 11/13 09:45 Order name: Urine Dipstick-Ancillary (obtain specimen); Complete Time: 09:47 rn Administered Medications: 10:20 Drug: NS 0.9% 1000 ml Route: IV; Rate: 1000 ml; Site: right antecubital; em 11:46 Follow up: IV Status: Completed infusion; IV Intake: 1000ml em 10: Drug: Flomax 0.4 mg Route: PO; em 11:04 Follow up: Response: No adverse reaction em 10: Drug: TORadol - Ketorolac 15 mg Route: IVP; Site: right antecubital; aa5 11:11 Follow up: Response: No adverse reaction; Marked relief of symptoms; Pain is decreased em 11:12 Drug: Magnesium Sulfate 1 grams Route: IVPB; Infused Over: 1 hrs; Site: right em antecubital; 12:24 Follow up: Response: No adverse reaction; IV Status: Completed infusion; IV Intake: em 100ml Disposition: 11/13/18 11:01 Discharged to Home. Impression: Nephrolithiasis. - Condition is Stable. - Discharge Instructions: Kidney Stones, Dietary Guidelines to Help Prevent Kidney Stones. - Prescriptions for Tylenol- Codeine #3 300-30 mg Oral Tablet - take 1 tablet by ORAL route every 6 hours As needed; 15 tablet. - Medication Reconciliation Form, Thank You Letter, Antibiotic Education, Prescription Opioid Use form. - Follow up: Private Physician; When: As needed; Reason: Recheck today's complaints, Re-evaluation by your physician. - Problem is an ongoing problem. - Symptoms have improved. Signatures: Dispatcher [employer] River Roe, WELDER ASSISTANT WELDER ASSISTANT em Gianni Rinaldi MD MD rn Calderon, Audri, RN RN aa5 Corrections: (The following items were deleted from the chart) 12:26 11:01 11/13/2018 11:01 Discharged to Home. Impression: Nephrolithiasis. Condition is em Stable. Forms are Medication Reconciliation Form, Thank You Letter, Antibiotic Education, Prescription Opioid Use. Follow up: Private Physician; When: As needed; Reason: Recheck today's complaints, Re-evaluation by your physician. Problem is an ongoing problem. Symptoms have improved. rn
[2018-11-13] MEDS ORDERED: MAGNESIUM SULFATE 1 gm IVPB 1 GM/100 ML BAG IV ONE (11:07)
[2018-11-13 12:54] VITALS: TEMP 98.3; O2SAT 99
[2018-11-13 12:56] VITALS: BP 127/84
== END 2018-11-13 12:26 | disposition home or self-care (01) ==
LOC: ER 09:28
DX: N20.0 Calculus of kidney (principal); Z72.0 Tobacco use
CPT/HCPCS: 36415; 74176; 76377; 80048; 81003; 81015; 85025; 87086; 87088; 96361; 96365; 96375; 99284; J3475; J7030

== ENCOUNTER 2018-12-15 17:24 | Emergency (ER) | payer SELFPAY ==
--- NOTE | 2018-12-15 18:47 | RAD REPORT ---
EXAM DESCRIPTION: RAD - Elbow Right 3 View - 12/15/2018 6:19 pm CLINICAL HISTORY: Right elbow pain status post injury FINDINGS: A joint effusion is present. In the setting of trauma this usually indicates a fracture. Subtle lucency is present within the radial head. I suspect this represents a nondisplaced fracture No dislocation
--- NOTE | 2018-12-15 19:03 | EDPHYS ---
Physician Documentation [facility] Name: Jasen Mcqueen Age: 23 yrs Sex: Male : 1995 Arrival Date: 12/15/2018 Time: 17:27 Bed 20 Private MD: ED Physician Chavo Montemayor HPI: 12/15 19:12 This 23 yrs old Male presents to ER via Ambulatory with complaints of Elbow snw Injury. 19:12 The patient or guardian complains of injury, pain. The complaints affect the right snw elbow. Context: The problem was sustained outdoors, on a street or driveway, resulted from a fall, from Skateboard. Onset: The symptoms/episode began/occurred suddenly, at 16:00. Treatment prior to arrival includes: no previous treatment. Associated signs and symptoms: Pertinent positives: pain, swelling. Severity of symptoms: At their worst the symptoms were mild, moderate. The patient has not experienced similar symptoms in the past. The patient has not recently seen a physician. No contact with head, no LOC. Historical: - Allergies: 17:55 No Known Allergies; aa5 - PMHx: 17:55 Asthma; Kidney stones; aa5 - PSHx: 17:55 None; aa5 - Immunization history:: Adult Immunizations up to date. - Social history:: Smoking status: Patient uses tobacco products, denies chronic smoking, but will smoke occasionally. - Ebola Screening: : No symptoms or risks identified at this time. ROS: 19:11 Constitutional: Negative for fever, chills, and weight loss, Eyes: Negative for injury, snw pain, redness, and discharge, ENT: Negative for injury, pain, and discharge, Neck: Negative for injury, pain, and swelling, Cardiovascular: Negative for chest pain, palpitations, and edema, Respiratory: Negative for shortness of breath, cough, wheezing, and pleuritic chest pain, Abdomen/GI: Negative for abdominal pain, nausea, vomiting, diarrhea, and constipation, Back: Negative for injury and pain, : Negative for injury, bleeding, discharge, and swelling, Skin: Negative for injury, rash, and discoloration, Neuro: Negative for headache, weakness, numbness, tingling, and seizure, Psych: Negative for depression, anxiety, suicide ideation, homicidal ideation, and hallucinations. 19:11 MS/extremity: Positive for injury or acute deformity, decreased range of motion, pain, of the right elbow. Exam: 19:10 Constitutional: This is a well developed, well nourished patient who is awake, alert, snw and in no acute distress. Head/Face: Normocephalic, atraumatic. Eyes: Pupils equal round and reactive to light, extra-ocular motions intact. Lids and lashes normal. Conjunctiva and sclera are non-icteric and not injected. Cornea within normal limits. Periorbital areas with no swelling, redness, or edema. ENT: Nares patent. No nasal discharge, no septal abnormalities noted. Tympanic membranes are normal and external auditory canals are clear. Oropharynx with no redness, swelling, or masses, exudates, or evidence of obstruction, uvula midline. Mucous membranes moist. Neck: Trachea midline, no thyromegaly or masses palpated, and no cervical lymphadenopathy. Supple, full range of motion without nuchal rigidity, or vertebral point tenderness. No Meningismus. Chest/axilla: Normal chest wall appearance and motion. Nontender with no deformity. No lesions are appreciated. Cardiovascular: Regular rate and rhythm with a normal S1 and S2. No gallops, murmurs, or rubs. Normal PMI, no JVD. No pulse deficits. Respiratory: Lungs have equal breath sounds bilaterally, clear to auscultation and percussion. No rales, rhonchi or wheezes noted. No increased work of breathing, no retractions or nasal flaring. Abdomen/GI: Soft, non-tender, with normal bowel sounds. No distension or tympany. No guarding or rebound. No evidence of tenderness throughout. Back: No spinal tenderness. No costovertebral tenderness. Full range of motion. Skin: Warm, dry with normal turgor. Normal color with no rashes, no lesions, and no evidence of cellulitis. Neuro: Awake and alert, GCS 15, oriented to person, place, time, and situation. Cranial nerves II-XII grossly intact. Motor strength 5/5 in all extremities. Sensory grossly intact. Cerebellar exam normal. Normal gait. Psych: Awake, alert, with orientation to person, place and time. Behavior, mood, and affect are within normal limits. 19:10 Musculoskeletal/extremity: Extremities: grossly normal except: noted in the right elbow: decreased ROM, swelling, tenderness, ROM: limited active range of motion due to pain, in the right elbow, Pulses: are normal with no appreciated deficits, Sensation intact. Vital Signs: 17:55 BP 116 / 82; Pulse 98; Resp 16 S; Temp 99.0(TE); Pulse Ox 98% on R/A; Weight 99.79 kg aa5 (R); Height 5 ft. 9 in. (175.26 cm) (R); Pain 7/10; 19:41 BP 123 / 75; Pulse 97; Resp 18; Pulse Ox 97% on R/A; wh 17:55 Body Mass Index 32.49 (99.79 kg, 175.26 cm) aa5 MDM: 18:35 Patient medically screened. snw 19:08 Data reviewed: vital signs, nurses notes. Data interpreted: Pulse oximetry: on room air snw is 98 %. Interpretation: normal. Counseling: I had a detailed discussion with the patient and/or guardian regarding: the historical points, exam findings, and any diagnostic results supporting the discharge/admit diagnosis, radiology results, the need for outpatient follow up, to return to the emergency department if symptoms worsen or persist or if there are any questions or concerns that arise at home. Special discussion: Based on the patient's history, exam and DX evaluation, there is no indication for emergent intervention or inpatient TX. It is understood by the patient/guardian that if the SXs persist or worsen they need to return immediately for re-evaluation. Based on the history and exam findings, there is no indication for further emergent testing or inpatient evaluation. I discussed with the patient/guardian the need to see the orthopedic surgeon for further evaluation of the symptoms. I discussed with the patient/guardian the need to see the primary care provider for further evaluation of the symptoms. 12/15 17:56 Order name: Elbow Right 3 View XRAY; Complete Time: 18:55 aa5 12/15 18:57 Order name: Splint - Elbow - Posterior: 90 degree to distal ulna; Complete Time: 19:21 snw 12/15 19:06 Order name: Sling; Complete Time: 19:21 snw Administered Medications: 19:07 Drug: [place] 5 mg-325 mg 1 tabs Route: PO; wh 19:37 Follow up: Response: No adverse reaction; Pain is decreased; RASS: Alert and Calm (0) 19:09 Drug: Motrin 600 mg Route: PO; 19:37 Follow up: Response: No adverse reaction; Pain is decreased 19:11 Drug: Phenergan 25 mg Route: PO; 19:38 Follow up: Response: No adverse reaction; Nausea is decreased Disposition: 12/16 07:59 Co-signature as Attending Physician, Chavo Montemayor MD I agree with the assessment and kdr plan of care. Disposition: 12/15/18 19:03 Discharged to Home. Impression: Nondisplaced fracture of right radial styloid process, Fall (on) (from) unspecified stairs and steps. - Condition is Stable. - Discharge Instructions: Cast or Splint Care, Adult, Radial Head Fracture, RICE for Routine Care of Injuries, How to Use a Sling. - Prescriptions for Mobic 7.5 mg Oral Tablet - take 1 tablet by ORAL route once daily take with food; 20 tablet. - Medication Reconciliation Form, Thank You Letter, Antibiotic Education, Prescription Opioid Use form. - Follow up: Emergency Department; When: As needed; Reason: Worsening of condition. Signatures: Dispatcher [employer] EDMS Chavo Montemayor MD MD [facility] Kaylen Sabillon, CHICLE GRINDER FEEDER-C CHICLE GRINDER FEEDER-Csnw Katie Weaver RN RN aa5 Louis Oconnor Corrections: (The following items were deleted from the chart) 12/15 19:03 19:03 12/15/2018 19:03 Discharged to Home. Impression: Nondisplaced fracture of right snw radial styloid process. Condition is Stable. Forms are Medication Reconciliation Form, Thank You Letter, Antibiotic Education, Prescription Opioid Use. Follow up: Emergency Department; When: As needed; Reason: Worsening of condition. snw 19:42 19:03 12/15/2018 19:03 Discharged to Home. Impression: Nondisplaced fracture of right wh radial styloid process; Fall (on) (from) unspecified stairs and steps. Condition is Stable. Forms are Medication Reconciliation Form, Thank You Letter, Antibiotic Education, Prescription Opioid Use. Follow up: Emergency Department; When: As needed; Reason: Worsening of condition. snw
--- NOTE | 2018-12-15 19:03 | ER ---
Nurse's Notes [facility] Name: Jasen Mcqueen Age: 23 yrs Sex: Male : 1995 Arrival Date: 12/15/2018 Time: 17:27 Bed 20 Private MD: Diagnosis: Nondisplaced fracture of right radial styloid process;Fall (on) (from) unspecified stairs and steps Presentation: 12/15 17:54 Presenting complaint: Patient states: "I landed on my right arm trying to break my aa5 fall". pt c/o pain to right elbow. Transition of care: patient was not received from another setting of care. Onset of symptoms was December 15, 2018. Risk Assessment: Do you want to hurt yourself or someone else? Patient reports no desire to harm self or others. Initial Sepsis Screen: Does the patient meet any 2 criteria? No. Patient's initial sepsis screen is negative. Does the patient have a suspected source of infection? No. Patient's initial sepsis screen is negative. Care prior to arrival: None. 17:54 Acuity: UZIEL 4 aa5 17:54 Method Of Arrival: Ambulatory aa5 Triage Assessment: 19:10 Injury Description: Swelling in Right Elbow from fall. Historical: - Allergies: 17:55 No Known Allergies; aa5 - PMHx: 17:55 Asthma; Kidney stones; aa5 - PSHx: 17:55 None; aa5 - Immunization history:: Adult Immunizations up to date. - Social history:: Smoking status: Patient uses tobacco products, denies chronic smoking, but will smoke occasionally. - Ebola Screening: : No symptoms or risks identified at this time. Screenin:29 Abuse screen: Denies threats or abuse. Denies injuries from another. Nutritional aj1 screening: No deficits noted. Tuberculosis screening: No symptoms or risk factors identified. 19:10 Fall Risk Fall in past 12 months (25 points). Assessment: 18:29 General: Appears in no apparent distress. uncomfortable, Behavior is calm, cooperative, aj1 appropriate for age. Pain: Complains of pain in right elbow. Neuro: Level of Consciousness is awake, alert, obeys commands, Oriented to person, place, time, situation. Cardiovascular: Patient's skin is warm and dry. Respiratory: Airway is patent Respiratory effort is even, unlabored, Respiratory pattern is regular, symmetrical. GI: No signs and/or symptoms were reported involving the gastrointestinal system. : No signs and/or symptoms were reported regarding the genitourinary system. EENT: No signs and/or symptoms were reported regarding the EENT system. Derm: No signs and/or symptoms reported regarding the dermatologic system. Skin is pink, warm \\T\\ dry. normal. Musculoskeletal: Range of motion: limited in right elbow Swelling present in right elbow. 19:31 Reassessment: Patient appears in no apparent distress at this time. Patient and/or wh family updated on plan of care and expected duration. Pain level reassessed. Patient is alert, oriented x 3, equal unlabored respirations, skin warm/dry/pink. 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 Vital Signs: 17:55 BP 116 / 82; Pulse 98; Resp 16 S; Temp 99.0(TE); Pulse Ox 98% on R/A; Weight 99.79 kg aa5 (R); Height 5 ft. 9 in. (175.26 cm) (R); Pain 7/10; 19:41 BP 123 / 75; Pulse 97; Resp 18; Pulse Ox 97% on R/A; wh 17:55 Body Mass Index 32.49 (99.79 kg, 175.26 cm) aa5 ED Course: 17:27 Patient arrived in ED. as 17:54 Arm band placed on. aa5 17:55 Triage completed. aa5 18:17 [facility]illon [facility] snw 18:17 Chavo Montemayor MD is Attending Physician. snw 18:20 Elbow Right 3 View XRAY In Process Unspecified. EDMS 18:29 Jossy Valerio, RN is Primary Nurse. aj1 18:29 Patient has correct armband on for positive identification. Bed in low position. Call aj1 light in reach. Side rails up X 1. 18:29 No provider procedures requiring assistance completed. aj1 19:37 Patient did not have IV access during this emergency room visit. Administered Medications: 19:07 Drug: [place] 5 mg-325 mg 1 tabs Route: PO; 19:37 Follow up: Response: No adverse reaction; Pain is decreased; RASS: Alert and Calm (0) 19:09 Drug: Motrin 600 mg Route: PO; 19:37 Follow up: Response: No adverse reaction; Pain is decreased 19:11 Drug: Phenergan 25 mg Route: PO; 19:38 Follow up: Response: No adverse reaction; Nausea is decreased Outcome: 19:03 Discharge ordered by . snw 19:33 Discharged to home ambulatory, with friend. 19:33 Condition: stable 19:33 Discharge instructions given to patient, Instructed on discharge instructions, follow up and referral plans. no drinking with medication, medication usage, POC Radial Head Fracture Demonstrated understanding of instructions, follow-up care, medications, POC Prescriptions given X 1. 19:42 Patient left the ED. Signatures: Dispatcher [employer] EDMS Jossy Valerio RN RN aj1 Kaylen Sabillon, WINDOWS LAPTOP TECHNICIAN-C WINDOWS LAPTOP TECHNICIAN-Naila Jesus Audri RN RN aa5 Louis Oconnor
[2018-12-15] MEDS ORDERED: IBUPROFEN 400 MG TAB ONE (19:06)
[2018-12-15] MEDS ORDERED: IBUPROFEN 200 MG TAB PO ONE (19:06)
[2018-12-15] MEDS ORDERED: HYDROCODONE/APAP 5/325 MG TAB ONE (19:06)
[2018-12-15] MEDS ORDERED: PROMETHAZINE 25 MG TABLET ONE (19:11)
[2018-12-15 19:59] VITALS: TEMP 99
[2018-12-15 20:01] VITALS: BP 123/75; O2SAT 97
== END 2018-12-15 19:42 | disposition home or self-care (01) ==
LOC: ER 17:24
PROC: 2W38X1Z Immobilization of Right Upper Extremity using Splint (ICD-10-PCS; principal; 2018-12-15)
DX: S52.514A Nondisplaced fracture of right radial styloid process, initial encounter for closed fracture (principal); V00.131A Fall from skateboard, initial encounter; Z72.0 Tobacco use
CPT/HCPCS: 99283; Q0169

== ENCOUNTER 2019-03-19 11:00 | Emergency (ER) | payer SELFPAY ==
--- NOTE | 2019-03-19 13:01 | RAD REPORT ---
EXAM DESCRIPTION: Kim Viveros And Akiko (2 Views)03/19/2019 12:12 pm CLINICAL HISTORY: Cough COMPARISON: 2018 FINDINGS: The lungs appear clear of acute infiltrate. The heart is normal size IMPRESSION: No acute abnormalities displayed
--- NOTE | 2019-03-19 13:11 | EDPHYS ---
Physician Documentation [facility] Name: Jasen Mcqueen Age: 24 yrs Sex: Male : 1995 Arrival Date: 03/19/2019 Time: 11:01 Bed 17 Private MD: ED Physician Gianni Rinaldi HPI: 03/19 13:02 This 24 yrs old Male presents to ER via Ambulatory with complaints of kb Congestion, Sore Throat, Vomiting. 13:02 The patient or guardian reports cough, that is intermittent, described as mild, with no kb sputum, flu symptoms, myalgias. Onset: The symptoms/episode began/occurred 1.5 week(s) ago. Severity of symptoms: At their worst the symptoms were mild, moderate, in the emergency department the symptoms are unchanged. Modifying factors: The symptoms are alleviated by nothing, the symptoms are aggravated by nothing. Associated signs and symptoms: Pertinent positives: nausea, rhinorrhea, vomiting. The patient has not recently seen a physician. Historical: - Allergies: 11:22 No Known Allergies; iw - Home Meds: 11:22 None [Active]; iw - PMHx: 11:22 Asthma; Kidney stones; iw - PSHx: 11:22 None; iw - Immunization history:: Adult Immunizations not up to date. - Coronavirus screen:: The patient has NOT traveled to [place], [place], or [place] in the past 14 days. Proceed with normal triage process as indicated. - Social history:: Smoking status: Patient reports the use of cigarette tobacco products, denies chronic smoking, but will smoke occasionally. - Ebola Screening: : Patient negative for fever greater than or equal to 101.5 degrees Fahrenheit, and additional compatible Ebola Virus Disease symptoms Patient denies exposure to infectious person Patient denies travel to an Ebola-affected area in the 21 days before illness onset No symptoms or risks identified at this time. ROS: 13:01 Constitutional: Negative for fever, chills, and weight loss, Neck: Negative for injury, kb pain, and swelling, Cardiovascular: Negative for chest pain, palpitations, and edema, Back: Negative for injury and pain, MS/Extremity: Negative for injury and deformity, Skin: Negative for injury, rash, and discoloration, Neuro: Negative for headache, weakness, numbness, tingling, and seizure. 13:01 ENT: Positive for rhinorrhea, sinus congestion. 13:01 Respiratory: Positive for cough. 13:01 Abdomen/GI: Positive for nausea and vomiting, Negative for abdominal pain. Exam: 13:01 Constitutional: This is a well developed, well nourished patient who is awake, alert, kb and in no acute distress. Head/Face: Normocephalic, atraumatic. ENT: Nares patent. No nasal discharge, no septal abnormalities noted. Tympanic membranes are normal and external auditory canals are clear. Oropharynx with no redness, swelling, or masses, exudates, or evidence of obstruction, uvula midline. Mucous membranes moist. Neck: Trachea midline, no thyromegaly or masses palpated, and no cervical lymphadenopathy. Supple, full range of motion without nuchal rigidity, or vertebral point tenderness. No Meningismus. Chest/axilla: Normal chest wall appearance and motion. Nontender with no deformity. No lesions are appreciated. Cardiovascular: Regular rate and rhythm with a normal S1 and S2. No gallops, murmurs, or rubs. Normal PMI, no JVD. No pulse deficits. Respiratory: Lungs have equal breath sounds bilaterally, clear to auscultation and percussion. No rales, rhonchi or wheezes noted. No increased work of breathing, no retractions or nasal flaring. Abdomen/GI: Soft, non-tender, with normal bowel sounds. No distension or tympany. No guarding or rebound. No evidence of tenderness throughout. Back: No spinal tenderness. No costovertebral tenderness. Full range of motion. Skin: Warm, dry with normal turgor. Normal color with no rashes, no lesions, and no evidence of cellulitis. MS/ Extremity: Pulses equal, no cyanosis. Neurovascular intact. Full, normal range of motion. Neuro: Awake and alert, GCS 15, oriented to person, place, time, and situation. Cranial nerves II-XII grossly intact. Motor strength 5/5 in all extremities. Sensory grossly intact. Cerebellar exam normal. Normal gait. Vital Signs: 11:22 BP 133 / 84; Pulse 105; Resp 18; Temp 98.4; Pulse Ox 99% on R/A; Weight 90.72 kg; iw Height 5 ft. 9 in. (175.26 cm); Pain 0/10; 12:20 BP 121 / 75; Pulse 80; Resp 17; Pulse Ox 98% on R/A; Pain 0/10; rb1 11:22 Body Mass Index 29.53 (90.72 kg, 175.26 cm) iw MDM: 11:28 Patient medically screened. kb 13:01 Data reviewed: vital signs, nurses notes. Data interpreted: Pulse oximetry: on room air kb is 99 %. Interpretation: normal. Counseling: I had a detailed discussion with the patient and/or guardian regarding: the historical points, exam findings, and any diagnostic results supporting the discharge/admit diagnosis, lab results, radiology results, the need for outpatient follow up, a family practitioner, to return to the emergency department if symptoms worsen or persist or if there are any questions or concerns that arise at home. 03/19 11:28 Order name: Flu; Complete Time: 12:17 kb 03/19 11:28 Order name: Strep; Complete Time: 12:12 kb 03/19 11:51 Order name: Chest Pa And Lat (2 Views) XRAY; Complete Time: 13:10 kb 03/19 12:08 Order name: Throat Culture EDMS Administered Medications: No medications were administered Disposition: 14:16 Co-signature as Attending Physician, Gianni Rinaldi MD. rn Disposition: 03/19/19 13:10 Discharged to Home. Impression: Acute upper respiratory infection, unspecified. - Condition is Stable. - Discharge Instructions: Upper Respiratory Infection, Adult, [id number]. - Medication Reconciliation Form, Thank You Letter, Antibiotic Education, Prescription Opioid Use, Work release form form. - Follow up: Emergency Department; When: As needed; Reason: Worsening of condition. Follow up: Private Physician; When: 2 - 3 days; Reason: Recheck today's complaints, Continuance of care, Re-evaluation by your physician. Signatures: Dispatcher [employer] EDMS Jody Jensen, MARIA LC PSYCHIATRIC RN-Vera Malik, RN RN Gianni Taylor MD MD state's attorney: (The following items were deleted from the chart) 13:18 13:10 03/19/2019 13:10 Discharged to Home. Impression: Acute upper respiratory iw infection, unspecified. Condition is Stable. Forms are Medication Reconciliation Form, Thank You Letter, Antibiotic Education, Prescription Opioid Use. Follow up: Emergency Department; When: As needed; Reason: Worsening of condition. Follow up: Private Physician; When: 2 - 3 days; Reason: Recheck today's complaints, Continuance of care, Re-evaluation by your physician. kb
--- NOTE | 2019-03-19 13:11 | ER ---
Nurse's Notes [facility] Name: Jasen Mcqueen Age: 24 yrs Sex: Male : 1995 Arrival Date: 03/19/2019 Time: 11:01 Bed 17 Private MD: Diagnosis: Acute upper respiratory infection, unspecified Presentation: 03/19 11:20 Presenting complaint: Patient states: has flu symptoms X 2 week, was really nauseous iw and vomited at work today , no fever, +cough with mucous. Presenting complaint:. Transition of care: patient was not received from another setting of care. Onset of symptoms was March 05, 2019. Risk Assessment: Do you want to hurt yourself or someone else? Patient reports no desire to harm self or others. Initial Sepsis Screen: Does the patient meet any 2 criteria? No. Patient's initial sepsis screen is negative. Does the patient have a suspected source of infection? No. Patient's initial sepsis screen is negative. Care prior to arrival: None. 11:20 Method Of Arrival: Ambulatory iw 11:20 Acuity: UZIEL 4 iw Historical: - Allergies: 11:22 No Known Allergies; iw - Home Meds: 11:22 None [Active]; iw - PMHx: 11:22 Asthma; Kidney stones; iw - PSHx: 11:22 None; iw - Immunization history:: Adult Immunizations not up to date. - Coronavirus screen:: The patient has NOT traveled to [place], [place], or [place] in the past 14 days. Proceed with normal triage process as indicated. - Social history:: Smoking status: Patient reports the use of cigarette tobacco products, denies chronic smoking, but will smoke occasionally. - Ebola Screening: : Patient negative for fever greater than or equal to 101.5 degrees Fahrenheit, and additional compatible Ebola Virus Disease symptoms Patient denies exposure to infectious person Patient denies travel to an Ebola-affected area in the 21 days before illness onset No symptoms or risks identified at this time. Screenin:28 Abuse screen: Denies threats or abuse. Nutritional screening: No deficits noted. rb1 Tuberculosis screening: No symptoms or risk factors identified. Fall Risk None identified. Assessment: 11:28 General: Appears in no apparent distress. comfortable, Behavior is calm, cooperative, rb1 Denies fever. General: Pt. reports having flu symptoms x 2 weeks. Neuro: Level of Consciousness is awake, alert, obeys commands, Oriented to person, place, time, situation. Cardiovascular: Capillary refill < 3 seconds is brisk in bilateral fingers. Respiratory: Airway is patent Respiratory effort is even, unlabored, Respiratory pattern is regular, symmetrical. GI: Reports nausea, vomiting. Derm: Skin is pink, warm \T\ dry. 11:28 Pain: Denies pain. Respiratory: Reports shortness of breath. rb1 12:03 Reassessment: Pt. went to X-ray. rb1 12:28 Reassessment: Patient appears in no apparent distress at this time. Patient and/or rb1 family updated on plan of care and expected duration. Pain level reassessed. Patient is alert, oriented x 3, equal unlabored respirations, skin warm/dry/pink. Patient denies pain at this time. Vital Signs: 11:22 BP 133 / 84; Pulse 105; Resp 18; Temp 98.4; Pulse Ox 99% on R/A; Weight 90.72 kg; iw Height 5 ft. 9 in. (175.26 cm); Pain 0/10; 12:20 BP 121 / 75; Pulse 80; Resp 17; Pulse Ox 98% on R/A; Pain 0/10; rb1 11:22 Body Mass Index 29.53 (90.72 kg, 175.26 cm) iw ED Course: 11:01 Patient arrived in ED. as 11:21 Triage completed. iw 11:22 Arm band placed on. iw 11:28 Jody Jensen FNP-C [facility]. kb 11:28 Gianni Rinaldi MD is Attending Physician. kb 11:28 Patient has correct armband on for positive identification. Bed in low position. Call rb1 light in reach. Side rails up X 1. Pulse ox on. NIBP on. 11:40 Eve Whatley, RN is Primary Nurse. rb1 12:11 Chest Pa And Lat (2 Views) XRAY In Process Unspecified. EDMS 13:18 No provider procedures requiring assistance completed. Patient did not have IV access rb1 during this emergency room visit. Administered Medications: No medications were administered Outcome: 13:10 Discharge ordered by . kb 13:18 Patient left the ED. iw 13:18 Discharged to home ambulatory. rb1 13:18 Condition: stable 13:18 Discharge instructions given to patient, Instructed on discharge instructions, follow up and referral plans. Demonstrated understanding of instructions, follow-up care, Prescriptions given X none Signatures: Dispatcher [employer] Jody Meyers, MADINA-C MADINA-Naila Prasad Irene, RN RN iw Eve Whatley RN RN rb1
[2019-03-19 13:25] VITALS: TEMP 98.4
[2019-03-19 13:27] VITALS: BP 121/75; O2SAT 98
== END 2019-03-19 13:18 | disposition home or self-care (01) ==
LOC: ER 11:00
DX: J06.9 Acute upper respiratory infection, unspecified (principal); F17.210 Nicotine dependence, cigarettes, uncomplicated
CPT/HCPCS: 71046; 87070; 87081; 87804; 99283

== ENCOUNTER 2019-03-26 10:27 | Emergency (ER) | payer SELFPAY ==
--- NOTE | 2019-03-26 10:59 | ER ---
Nurse's Notes [facility] Name: Jasen Mcqueen Age: 24 yrs Sex: Male : 1995 Arrival Date: 03/26/2019 Time: 10:29 Bed 13 Private MD: Diagnosis: Acute pharyngitis Presentation: 03/26 10:39 Presenting complaint: Patient states: diagnosed in ER last week with a URI. Pt c/o sore ss throat and "harder to breathe". Transition of care: patient was not received from another setting of care. Onset of symptoms was March 2019. Risk Assessment: Do you want to hurt yourself or someone else? Patient reports no desire to harm self or others. Initial Sepsis Screen: Does the patient meet any 2 criteria? No. Patient's initial sepsis screen is negative. Does the patient have a suspected source of infection? No. Patient's initial sepsis screen is negative. Care prior to arrival: None. 10:39 Acuity: UZIEL 5 ss 10:39 Method Of Arrival: Ambulatory ss Historical: - Allergies: 10:40 No Known Allergies; ss - Home Meds: 10:40 None [Active]; ss - PMHx: 10:40 Asthma; Kidney stones; ss - PSHx: 10:40 None; ss - Immunization history:: Adult Immunizations up to date. - Coronavirus screen:: The patient has NOT traveled to [place] in the past 14 days. Proceed with normal triage process as indicated. - Social history:: Smoking status: Patient reports the use of cigarette tobacco products, smokes one-half pack cigarettes per day. - Ebola Screening: : Patient denies exposure to infectious person Patient denies travel to an Ebola-affected area in the 21 days before illness onset. Screenin:26 Abuse screen: Denies threats or abuse. Denies injuries from another. Nutritional aj1 screening: No deficits noted. Tuberculosis screening: No symptoms or risk factors identified. Fall Risk None identified. Assessment: 11:26 General: Appears in no apparent distress. comfortable, Behavior is calm, cooperative, aj1 appropriate for age. Pain: Complains of pain in left aspect of posterior pharynx and right aspect of posterior pharynx. Neuro: Level of Consciousness is awake, alert, obeys commands, Oriented to person, place, time, situation. Cardiovascular: Patient's skin is warm and dry. Rhythm is regular. Respiratory: Airway is patent Respiratory effort is even, unlabored, Respiratory pattern is regular, symmetrical, Breath sounds are clear bilaterally. GI: No signs and/or symptoms were reported involving the gastrointestinal system. : No signs and/or symptoms were reported regarding the genitourinary system. EENT: Throat is reddened bilaterally. Derm: No signs and/or symptoms reported regarding the dermatologic system. Skin is pink, warm \\T\\ dry. normal. Musculoskeletal: No signs and/or symptoms reported regarding the musculoskeletal system. Circulation, motion, and sensation intact. Vital Signs: 10:38 BP 118 / 82; Pulse 88; Resp 16; Temp 98.3(TE); Pulse Ox 98% on R/A; Weight 90.72 kg; Height 5 ft. 9 in. (175.26 cm); Pain 5/10; 10:38 Body Mass Index 29.53 (90.72 kg, 175.26 cm) ED Course: 10:29 Patient arrived in ED. fj1 10:35 Fermín Travis [facility]. jr8 10:35 Dandy Hidalgo MD is Attending Physician. jr8 10:37 Jossy Valerio, RN is Primary Nurse. aj1 10:38 Arm band placed on left wrist. 10:40 Triage completed. 11:26 Patient has correct armband on for positive identification. Bed in low position. Call aj1 light in reach. Side rails up X 1. 11:26 No provider procedures requiring assistance completed. Patient did not have IV access aj during this emergency room visit. Administered Medications: No medications were administered Outcome: 10:58 Discharge ordered by . jr8 11:26 Discharged to home ambulatory. aj1 11:26 Condition: good 11:26 Discharge instructions given to patient, Instructed on discharge instructions, follow up and referral plans. medication usage, Demonstrated understanding of instructions, follow-up care, medications, Prescriptions given X 2. 11:28 Patient left the ED. aj1 Signatures: Jossy Valerio, RN RN aj1 Angelita Gu RN RN Fermín Travis PA PA jr8 Obed Hanson fj
--- NOTE | 2019-03-26 10:59 | EDPHYS ---
Physician Documentation [facility] Name: Jasen Mcqueen Age: 24 yrs Sex: Male : 1995 Arrival Date: 03/26/2019 Time: 10:29 Bed 13 Private MD: ED Physician Dandy Hidalgo HPI: 03/26 11:04 This 24 yrs old Male presents to ER via Ambulatory with complaints of jr8 Breathing Difficulty, Difficulty Swallowing. 11:04 The patient has shortness of breath at rest. Onset: The symptoms/episode began/occurred jr8 gradually, 2 day(s) ago. Duration: The symptoms are intermittent. The patient's shortness of breath has no apparent modifying factors. Associated signs and symptoms: Pertinent positives: sore throat. Severity of symptoms: At their worst the symptoms were mild in the emergency department the symptoms are unchanged. The patient has experienced a previous episode. The patient has been recently seen at the [facility] Emergency Department, last week. Stated that he was diagnosed with URI last week. Treated symptomatically with OTC medications. Stated that he started to have asthma attacks now and is having worsening of sore throat . Historical: - Allergies: 10:40 No Known Allergies; ss - Home Meds: 10:40 None [Active]; ss - PMHx: 10:40 Asthma; Kidney stones; ss - PSHx: 10:40 None; ss - Immunization history:: Adult Immunizations up to date. - Coronavirus screen:: The patient has NOT traveled to [place] in the past 14 days. Proceed with normal triage process as indicated. - Social history:: Smoking status: Patient reports the use of cigarette tobacco products, smokes one-half pack cigarettes per day. - Ebola Screening: : Patient denies exposure to infectious person Patient denies travel to an Ebola-affected area in the 21 days before illness onset. ROS: 11:04 Eyes: Negative for injury, pain, redness, and discharge, Neck: Negative for injury, jr8 pain, and swelling, Cardiovascular: Negative for chest pain, palpitations, and edema, Abdomen/GI: Negative for abdominal pain, nausea, vomiting, diarrhea, and constipation, Back: Negative for injury and pain, MS/Extremity: Negative for injury and deformity, Skin: Negative for injury, rash, and discoloration, Neuro: Negative for headache, weakness, numbness, tingling, and seizure. 11:04 ENT: Positive for sore throat. 11:04 Respiratory: Positive for shortness of breath, wheezing. Exam: 11:04 Eyes: Pupils equal round and reactive to light, extra-ocular motions intact. Lids and jr8 lashes normal. Conjunctiva and sclera are non-icteric and not injected. Cornea within normal limits. Periorbital areas with no swelling, redness, or edema. ENT: Nares patent. No nasal discharge, no septal abnormalities noted. Tympanic membranes are normal and external auditory canals are clear. Oropharynx with redness. No swelling, or masses, exudates, or evidence of obstruction, uvula midline. Mucous membranes moist. Neck: Trachea midline, no thyromegaly or masses palpated, and no cervical lymphadenopathy. Supple, full range of motion without nuchal rigidity, or vertebral point tenderness. No Meningismus. Cardiovascular: Regular rate and rhythm with a normal S1 and S2. No gallops, murmurs, or rubs. Normal PMI, no JVD. No pulse deficits. Respiratory: Lungs have equal breath sounds bilaterally, clear to auscultation and percussion. No rales, rhonchi or wheezes noted. No increased work of breathing, no retractions or nasal flaring. Abdomen/GI: Soft, non-tender, with normal bowel sounds. No distension or tympany. No guarding or rebound. No evidence of tenderness throughout. Back: No spinal tenderness. No costovertebral tenderness. Full range of motion. Skin: Warm, dry with normal turgor. Normal color with no rashes, no lesions, and no evidence of cellulitis. MS/ Extremity: Pulses equal, no cyanosis. Neurovascular intact. Full, normal range of motion. Neuro: Awake and alert, GCS 15, oriented to person, place, time, and situation. Cranial nerves II-XII grossly intact. Motor strength 5/5 in all extremities. Sensory grossly intact. Cerebellar exam normal. Normal gait. Vital Signs: 10:38 BP 118 / 82; Pulse 88; Resp 16; Temp 98.3(TE); Pulse Ox 98% on R/A; Weight 90.72 kg; ss Height 5 ft. 9 in. (175.26 cm); Pain 5/10; 10:38 Body Mass Index 29.53 (90.72 kg, 175.26 cm) MDM: 10:39 Patient medically screened. [facility] 11:07 Data reviewed: vital signs, nurses notes, and as a result, I will discharge patient. jr8 Data interpreted: Pulse oximetry: on room air is 98 %. Interpretation: normal. Counseling: I had a detailed discussion with the patient and/or guardian regarding: the historical points, exam findings, and any diagnostic results supporting the discharge/admit diagnosis, the need for outpatient follow up, a family practitioner, to return to the emergency department if symptoms worsen or persist or if there are any questions or concerns that arise at home. Administered Medications: No medications were administered Disposition: 03/26/19 10:58 Discharged to Home. Impression: Acute pharyngitis. - Condition is Stable. - Discharge Instructions: Pharyngitis. - Prescriptions for Prednisone 20 mg Oral Tablet - take 1 tablet by ORAL route once daily for 5 days; 5 tablet. Zithromax Z- Travis 250 mg Oral Tablet - take 1 tablet by ORAL route as directed for 5 days Day 1 - take two (2) tablets one time. Day 2, 3, 4 , 5 take one (1) tablet once daily.; 6 tablet. - Work release form, Medication Reconciliation Form, Thank You Letter, Antibiotic Education, Prescription Opioid Use form. - Follow up: Private Physician; When: 1 week; Reason: Recheck today's complaints, Continuance of care, Re-evaluation by your physician. - Problem is new. - Symptoms have improved. Addendum: 03/28/2019 07:51 Co-signature as Attending Physician, Dandy Hidalgo MD I agree with the assessment and c plan of care. Signatures: Jossy Valerio, RN RN aj1 Dandy Hidalgo MD MD cha Smirch, Shelby, RN RN Fermín Travis PA PA jr8 Corrections: (The following items were deleted from the chart) 03/26 11:28 10:58 03/26/2019 10:58 Discharged to Home. Impression: Acute pharyngitis. Condition is aj1 Stable. Forms are Medication Reconciliation Form, Thank You Letter, Antibiotic Education, Prescription Opioid Use. Follow up: Private Physician; When: 1 week; Reason: Recheck today's complaints, Continuance of care, Re-evaluation by your physician. Problem is new. Symptoms have improved. jr8
[2019-03-26 11:51] VITALS: BP 136/95; TEMP 98.2; O2SAT 96
== END 2019-03-26 11:28 | disposition home or self-care (01) ==
LOC: ER 10:27
DX: J02.9 Acute pharyngitis, unspecified (principal)
CPT/HCPCS: 99282

== ENCOUNTER 2019-06-10 11:34 | Emergency (ER) | payer SELFPAY ==
--- NOTE | 2019-06-10 14:05 | ER ---
Nurse's Notes [facility] Name: Jasen Mcqueen Age: 24 yrs Sex: Male : 1995 Arrival Date: 06/10/2019 Time: 11:36 Bed 16 Private MD: Diagnosis: Shortness of breath-with history of asthma Presentation: 06/09 11:50 Chief complaint: Patient states: SOB x 3 days only in the morning. Reports he has no sv inhaler for the past couple of years. Coronavirus screen: Patient reports a cough. Patient reports shortness of breath or difficulty breathing. Patient denies measured and/or subjective temperature greater than 100.4F prior to today's visit. Patient denies travel on a cruise ship or to a country the [facility] currently lists as an affected area. Patient denies contact with known and/or suspected case of COVID-19. Ebola Screen: No symptoms or risks identified at this time. Risk Assessment: Do you want to hurt yourself or someone else? Patient reports no desire to harm self or others. Onset of symptoms was June 07, 2019. 11:50 Method Of Arrival: Ambulatory sv 11:50 Acuity: UZIEL 3 sv 11:51 Initial Sepsis Screen: Does the patient meet any 2 criteria? No. Patient's initial sv sepsis screen is negative. Does the patient have a suspected source of infection? No. Patient's initial sepsis screen is negative. Triage Assessment: 11:53 General: Appears in no apparent distress. comfortable, well developed, Behavior is sv calm, cooperative, appropriate for age. Pain: Denies pain. Neuro: Level of Consciousness is awake, alert, obeys commands, Oriented to person, place, time, situation, Gait is steady. Respiratory: Airway is patent Respiratory effort is even, unlabored, Respiratory pattern is regular, symmetrical. Derm: Skin is pink, warm \T\ dry. Historical: - Allergies: 11:51 No Known Allergies; sv - PMHx: 11:51 Asthma; Kidney stones; sv - PSHx: 11:51 None; sv - Immunization history:: Flu vaccine is not up to date. - Social history:: Smoking status: Patient reports the use of cigarette tobacco products, smokes one-half pack cigarettes per day. Screenin:23 Abuse screen: Denies threats or abuse. Denies injuries from another. Nutritional sv screening: No deficits noted. Tuberculosis screening: No symptoms or risk factors identified. Fall Risk None identified. Assessment: 13:26 General: Appears in no apparent distress. comfortable, Behavior is calm, cooperative, ca1 appropriate for age. Pain: Denies pain. Neuro: Level of Consciousness is awake, alert, obeys commands, Oriented to person, place, time, situation, Appropriate for age. Cardiovascular: Heart tones S1 S2 present Capillary refill < 3 seconds Patient's skin is warm and dry. Respiratory: Reports shortness of breath at rest cough that is non-productive, since 3 - 4 days ago Airway is patent Respiratory effort is even, unlabored, Respiratory pattern is regular, symmetrical, Breath sounds are clear bilaterally. GI: Abdomen is round non-distended, Bowel sounds present X 4 quads. Abd is soft and non tender X 4 quads. : No signs and/or symptoms were reported regarding the genitourinary system. EENT: No signs and/or symptoms were reported regarding the EENT system. Derm: Skin is intact, is healthy with good turgor, Skin is pink, warm \T\ dry. Musculoskeletal: Circulation, motion, and sensation intact. Capillary refill < 3 seconds. 14:07 Reassessment: Patient appears in no apparent distress at this time. Patient is alert, ca1 oriented x 3, equal unlabored respirations, skin warm/dry/pink. Vital Signs: 11:51 BP 117 / 81; Pulse 69; Resp 20; Temp 98; Pulse Ox 99% ; Weight 90.72 kg; Height 5 ft. 9 sv in. (175.26 cm); 13:28 BP 120 / 77; Pulse 72; Resp 18 S; Pulse Ox 97% on R/A; ca1 14:07 BP 126 / 81; Pulse 70; Resp 17 S; Pulse Ox 98% on R/A; ca1 11:51 Body Mass Index 29.54 (90.72 kg, 175.26 cm) sv ED Course: 11:36 Patient arrived in ED. ag5 11:51 Triage completed. sv 11:51 Arm band placed on Patient placed in waiting room, Patient notified of wait time. sv 13:20 Jarek Vazquez, RN is Primary Nurse. bp 13:23 Patient has correct armband on for positive identification. Bed in low position. Call sv light in reach. Door closed. Head of bed elevated. 13:26 Pulse ox on. NIBP on. ca1 13:28 Ariadna Kraus RN is Primary Nurse. hua 13:31 Dandy Hidalgo MD is Attending Physician. ori 13:54 Dandy De Leon PA is PHCP. cp 14:09 No provider procedures requiring assistance completed. Patient did not have IV access ca1 during this emergency room visit. 14:12 Primary Nurse role handed off by Ariadna Kraus RN ca1 Administered Medications: No medications were administered Outcome: 14:05 Discharge ordered by . cp 14:09 Discharged to home ambulatory. ca1 14:09 Condition: stable 14:09 Discharge instructions given to patient, Instructed on discharge instructions, follow up and referral plans. medication usage, Demonstrated understanding of instructions, follow-up care, medications, Prescriptions given X 1. 14:10 Patient left the ED. ca1 14:12 Patient left the ED. ca1 Signatures: She Dunn RN RN Dandy Healy MD MD cha Page, Corey, PA PA cp Jarek Vazquez RN RN Ariadna Kraus RN RN ca1 Hazel Moore ag5 Corrections: (The following items were deleted from the chart) 12:04 11:50 Chief complaint: Patient states: SOB x 3 days only in the morning. sv meli
--- NOTE | 2019-06-10 14:06 | EDPHYS ---
Physician Documentation [facility] Name: Jasen Mcqueen Age: 24 yrs Sex: Male : 1995 Arrival Date: 06/10/2019 Time: 11:36 Bed 16 Private MD: ED Physician Dandy Hidalgo HPI: 06/09 13:58 This 24 yrs old Male presents to ER via Ambulatory with complaints of Asthma cp Exacerbation. 13:58 The patient presents to the emergency department with wheezing, Current therapy: None, cp that began without any particular precipitating event, the patient was reported to have shortness of breath. Onset: The symptoms/episode began/occurred 5 day(s) ago, reports symptoms in the morning that improve. Patient reports asthma as a child. No current treatment and reports symptoms currently resolved. Denies cough, chest pain, sore throat and fever. Historical: - Allergies: 11:51 No Known Allergies; sv - PMHx: 11:51 Asthma; Kidney stones; sv - PSHx: 11:51 None; sv - Immunization history:: Flu vaccine is not up to date. - Social history:: Smoking status: Patient reports the use of cigarette tobacco products, smokes one-half pack cigarettes per day. ROS: 14:00 Constitutional: Negative for body aches, chills, fever. cp 14:00 ENT: Negative for drainage from ear(s), ear pain, sore throat, difficulty swallowing, difficulty handling secretions. 14:00 Cardiovascular: Negative for chest pain, edema, palpitations. 14:00 Respiratory: Positive for history of shortness of breath and history of asthma as child, Negative for cough, wheezing. 14:00 Abdomen/GI: Negative for vomiting, diarrhea, constipation. 14:00 Neuro: Negative for altered mental status, headache, syncope, weakness. 14:00 All other systems are negative. Exam: 14:02 Head/Face: Normocephalic, atraumatic. cp 14:02 Constitutional: The patient appears in no acute distress, alert, awake, non-diaphoretic, non-toxic, well developed, well nourished. 14:02 Eyes: Periorbital structures: appear normal, Conjunctiva: normal, no exudate, no injection, Lids and lashes: appear normal, bilaterally. 14:02 ENT: External ear(s): are unremarkable, Ear canal(s): are normal, clear, TM's: dullness, bilaterally, Nose: is normal, Mouth: Lips: moist, Oral mucosa: pink and intact, moist, Posterior pharynx: is normal, airway is patent, no erythema, no exudate. 14:02 Neck: ROM/movement: is normal, is supple, without pain, no range of motions limitations, no nuchal rigidity. 14:02 Chest/axilla: Inspection: normal, Palpation: is normal, no crepitus, no tenderness. 14:02 Cardiovascular: Rate: normal, Rhythm: regular, Heart sounds: murmur, not appreciated, Edema: is not appreciated, JVD: is not appreciated. 14:02 Respiratory: the patient does not display signs of respiratory distress, Respirations: normal, no use of accessory muscles, no retractions, labored breathing, is not present, Breath sounds: are clear throughout, no decreased breath sounds, no stridor, no wheezing. 14:02 Abdomen/GI: Exam negative for discomfort, distension, guarding, Inspection: abdomen appears normal. 14:02 Back: pain, is absent, ROM is normal. Vital Signs: 11:51 BP 117 / 81; Pulse 69; Resp 20; Temp 98; Pulse Ox 99% ; Weight 90.72 kg; Height 5 ft. 9 sv in. (175.26 cm); 13:28 BP 120 / 77; Pulse 72; Resp 18 S; Pulse Ox 97% on R/A; ca1 14:07 BP 126 / 81; Pulse 70; Resp 17 S; Pulse Ox 98% on R/A; ca1 11:51 Body Mass Index 29.54 (90.72 kg, 175.26 cm) sv MDM: 13:31 Patient medically screened. [facility] 14:04 Data reviewed: vital signs, nurses notes, and as a result, I will discharge patient. cp Administered Medications: No medications were administered Disposition: 14:15 Chart complete. cp Disposition: 06/10/19 14:05 Discharged to Home. Impression: Shortness of breath - with history of asthma. - Condition is Stable. - Discharge Instructions: Asthma, Adult. - Prescriptions for Albuterol Sulfate 90 mcg/actuation - inhale 1-2 puff by INHALATION route every 4-6 hours; 1 Inhaler. - Medication Reconciliation Form, Thank You Letter, Antibiotic Education, Prescription Opioid Use, Work release form form. - Follow up: Private Physician; When: 1 - 2 days; Reason: Worsening of condition. - Problem is new. - Symptoms have improved. Addendum: 06/11/2019 14:32 Co-signature as Attending Physician, Dandy Hidalgo MD I agree with the assessment and c [facility]ckham plan of care. Signatures: She Dunn RN RN Dandy Healy MD MD cha Page, Corey, PA PA cp AcAriadna andrews RN RN ca1 Corrections: (The following items were deleted from the chart) 06/09 14:06 14:05 06/10/2019 14:05 Discharged to Home. Impression: Asthma. Condition is Stable. cp Forms are Medication Reconciliation Form, Thank You Letter, Antibiotic Education, Prescription Opioid Use. Follow up: Private Physician; When: 1 - 2 days; Reason: Worsening of condition. Problem is new. Symptoms have improved. 14:10 14:06 06/10/2019 14:05 Discharged to Home. Impression: Shortness of breath - with ca1 history of asthma. Condition is Stable. Discharge Instructions: Asthma, Adult. Forms are Medication Reconciliation Form, Thank You Letter, Antibiotic Education, Prescription Opioid Use. Follow up: Private Physician; When: 1 - 2 days; Reason: Worsening of condition. Problem is new. Symptoms have improved. 14:12 14:10 06/10/2019 14:05 Discharged to Home. Impression: Shortness of breath - with ca1 history of asthma. Condition is Stable. Discharge Instructions: Asthma, Adult. Prescriptions for Albuterol Sulfate 90 mcg/actuation - inhale 1-2 puff by INHALATION route every 4-6 hours; 1 Inhaler. and Forms are Medication Reconciliation Form, Thank You Letter, Antibiotic Education, Prescription Opioid Use, Work release form. Follow up: Private Physician; When: 1 - 2 days; Reason: Worsening of condition. Problem is new. Symptoms have improved. ca1
[2019-06-10 14:16] VITALS: TEMP 98
[2019-06-10 14:19] VITALS: BP 126/81; O2SAT 98
== END 2019-06-10 14:12 | disposition home or self-care (01) ==
LOC: ER 11:34
DX: R06.02 Shortness of breath (principal); J45.909 Unspecified asthma, uncomplicated; F17.210 Nicotine dependence, cigarettes, uncomplicated
CPT/HCPCS: 99283

== ENCOUNTER 2019-07-24 18:17 | Emergency (ER) | payer SELFPAY ==
--- NOTE | 2019-07-24 19:51 | ER ---
Nurse's Notes [facility] Name: Jasen Mcqueen Age: 24 yrs Sex: Male : 1995 Arrival Date: 07/24/2019 Time: 18:19 Bed 18 Private MD: Diagnosis: Pain in right wrist-from fall Presentation: 07/23 18:31 Chief complaint: Patient states: fractured his right forearm in December, today he fell iw at work and wants to make sure he did not reinjure it. Coronavirus screen: Proceed with normal triage. Patient denies a cough. Patient denies shortness of breath or difficulty breathing. Patient denies measured and/or subjective temperature greater than 100.4F prior to today's visit. Patient denies travel on a cruise ship or to a country the [facility] currently lists as an affected area. Patient denies contact with known and/or suspected case of COVID-19. Ebola Screen: Patient negative for fever greater than or equal to 101.5 degrees Fahrenheit, and additional compatible Ebola Virus Disease symptoms Patient denies exposure to infectious person. Patient denies travel to an Ebola-affected area in the 21 days before illness onset. No symptoms or risks identified at this time. Initial Sepsis Screen: Does the patient meet any 2 criteria? No. Patient's initial sepsis screen is negative. Does the patient have a suspected source of infection? No. Patient's initial sepsis screen is negative. Risk Assessment: Do you want to hurt yourself or someone else? Patient reports no desire to harm self or others. Onset of symptoms was July 24, 2019. 18:31 Method Of Arrival: Ambulatory iw 18:31 Acuity: UZIEL 4 iw Triage Assessment: 19:15 Injury Description: fall. Historical: - Allergies: 18:33 No Known Allergies; iw - Home Meds: 18:33 None [Active]; iw - PMHx: 18:33 Asthma; Kidney stones; iw - PSHx: 18:33 None; iw - Immunization history:: Adult Immunizations. - Social history:: Smoking status: Patient reports the use of cigarette tobacco products, denies chronic smoking, but will smoke occasionally. Screenin:34 Abuse screen: Denies threats or abuse. Denies injuries from another. Nutritional iw screening: No deficits noted. Tuberculosis screening: No symptoms or risk factors identified. Fall Risk None identified. Assessment: 18:33 General: Appears in no apparent distress. Behavior is calm, cooperative. Pain: iw Complains of pain in dorsal aspect of right forearm and palmar aspect of right forearm Pain currently is 3 out of 10 on a pain scale. Neuro: Level of Consciousness is awake, alert, obeys commands, Oriented to person, place, time, situation, Moves all extremities. Full function. Respiratory: Respiratory effort is even, unlabored, Respiratory pattern is regular. Derm: Skin is intact, is healthy with good turgor. Musculoskeletal: Range of motion: intact in all extremities. 19:15 Reassessment: Patient appears in no apparent distress at this time. Patient and/or wh family updated on plan of care and expected duration. Pain level reassessed. Patient is alert, oriented x 3, equal unlabored respirations, skin warm/dry/pink. Vital Signs: 18:31 BP 115 / 78; Pulse 83; Resp 16; Temp 98.0; Pulse Ox 98% on R/A; Weight 90.72 kg; Height iw 5 ft. 9 in. (175.26 cm); Pain 2/10; 19:27 BP 117 / 71; Pulse 76; Resp 18; Pulse Ox 97% ; wh 18:31 Body Mass Index 29.53 (90.72 kg, 175.26 cm) iw ED Course: 18:19 Patient arrived in ED. ag5 18:32 Triage completed. iw 18:33 Arm band placed on. iw 18:34 Patient has correct armband on for positive identification. iw 18:35 D[facility] De Leon [facility]. cp 18:35 Dandy Hidalgo MD is Attending Physician. cp 19:02 Eve Whatley, RN is Primary Nurse. rb1 19:23 XRAY Wrist RIGHT 3 view In Process Unspecified. EDMS 20:07 No provider procedures requiring assistance completed. Patient did not have IV access wh during this emergency room visit. 20:08 Velcro wrist splint applied to right wrist. wh Administered Medications: No medications were administered Outcome: 19:51 Discharge ordered by . cp 20:07 Discharged to home ambulatory. wh 20:07 Condition: stable 20:07 Discharge instructions given to patient, Instructed on discharge instructions, follow up and referral plans. medication usage, POC Demonstrated understanding of instructions, follow-up care, medications, splint care, Prescriptions given X 1. 20:08 Patient left the ED. Signatures: Dispatcher [employer] EDVera Olivier, MARY LOU RN Dandy Lester PA PA cp Barber, Rebecca, RN RN martha Oconnor, Louis Moore, Hazel ag5
--- NOTE | 2019-07-24 19:52 | EDPHYS ---
Physician Documentation [facility] Name: Jasen Mcqueen Age: 24 yrs Sex: Male : 1995 Arrival Date: 07/24/2019 Time: 18:19 Bed 18 Private MD: ED Physician Dandy Hidalgo HPI: 07/23 18:50 This 24 yrs old Male presents to ER via Ambulatory with complaints of Arm cp Pain, Arm Injury. 18:50 The patient or guardian complains of injury, pain, that is acute. The complaints affect cp the right wrist. Context: resulted from a fall. Onset: The symptoms/episode began/occurred today. Treatment prior to arrival includes: gian wrap. Associated signs and symptoms: Pertinent negatives: decreased range of motion, deformity, numbness, tingling, weakness. Historical: - Allergies: 18:33 No Known Allergies; iw - Home Meds: 18:33 None [Active]; iw - PMHx: 18:33 Asthma; Kidney stones; iw - PSHx: 18:33 None; iw - Immunization history:: Adult Immunizations. - Social history:: Smoking status: Patient reports the use of cigarette tobacco products, denies chronic smoking, but will smoke occasionally. ROS: 19:00 MS/extremity: Positive for pain, tenderness, Negative for decreased range of motion, cp deformity, paresthesias. 19:00 Constitutional: Negative for body aches, chills, fever. cp 19:00 Cardiovascular: Negative for chest pain. 19:00 Respiratory: Negative for cough, wheezing. 19:00 Abdomen/GI: Negative for abdominal pain. 19:00 Skin: Negative for rash. 19:00 Neuro: Negative for headache, numbness, tingling. 19:00 All other systems are negative. Exam: 19:05 Constitutional: The patient appears in no acute distress, alert, awake, well developed, cp well nourished. 19:05 Musculoskeletal/extremity: Extremities: grossly normal except: noted in the radial side cp of right wrist: pain, tenderness, There is no evidence of decreased ROM, deformity, ROM: limited passive range of motion due to pain, in the right wrist, Perfusion: the extremity is normally perfused throughout, Sensation intact. 19:05 Skin: cellulitis, is not appreciated, no rash present. Vital Signs: 18:31 BP 115 / 78; Pulse 83; Resp 16; Temp 98.0; Pulse Ox 98% on R/A; Weight 90.72 kg; Height iw 5 ft. 9 in. (175.26 cm); Pain 2/10; 19:27 BP 117 / 71; Pulse 76; Resp 18; Pulse Ox 97% ; wh 18:31 Body Mass Index 29.53 (90.72 kg, 175.26 cm) iw Procedures: 20:05 Splinting: Splint applied to right wrist using wrist splint, applied by nurse. Examined cp by me, post splint application: neurovascular intact, Patient tolerated well. MDM: 18:35 Patient medically screened. [facility] 19:38 Test interpretation: by ED physician or midlevel provider: xrays of right wrist cp negative for fracture. 19:50 Data reviewed: vital signs, nurses notes, radiologic studies, plain films. 19:50 Differential diagnosis: dislocation, closed fracture, contusion, tendonitis. cp Counseling: I had a detailed discussion with the patient and/or guardian regarding: the historical points, exam findings, and any diagnostic results supporting the discharge/admit diagnosis, radiology results, to return to the emergency department if symptoms worsen or persist or if there are any questions or concerns that arise at home. 07/23 18:46 Order name: XRAY Wrist RIGHT 3 view 07/23 19:38 Order name: Splint - Wrist; Complete Time: 20:07 cp Administered Medications: No medications were administered Disposition: 20:10 Chart complete. 07/24 11:30 Co-signature as Attending Physician, Dandy Hidalgo MD I agree with the assessment and [facility] plan of care. Disposition: 07/24/19 19:51 Discharged to Home. Impression: Pain in right wrist - from fall. - Condition is Stable. - Discharge Instructions: Wrist Pain. - Prescriptions for Ibuprofen 800 mg Oral Tablet - take 1 tablet by ORAL route every 8 hours As needed take with food; 30 tablet. - Medication Reconciliation Form, Thank You Letter, Antibiotic Education, Prescription Opioid Use form. - Follow up: Private Physician; When: 2 - 3 days; Reason: Worsening of condition. - Problem is new. - Symptoms have improved. Signatures: Dispatcher [employer] EDDandy Herbert MD MD cha Williams, Irene, RN RN Dandy Lester PA PA cp Habalo, Winsy wh Corrections: (The following items were deleted from the chart) 07/23 20:08 19:51 07/24/2019 19:51 Discharged to Home. Impression: Pain in right wrist - from fall. Condition is Stable. Forms are Medication Reconciliation Form, Thank You Letter, Antibiotic Education, Prescription Opioid Use. Follow up: Private Physician; When: 2 - 3 days; Reason: Worsening of condition. Problem is new. Symptoms have improved. cp
[2019-07-24 20:15] VITALS: TEMP 98
[2019-07-24 20:17] VITALS: BP 117/71; O2SAT 97
--- NOTE | 2019-07-24 20:19 | RAD REPORT ---
EXAM DESCRIPTION: RAD - Wrist Right 3 View - 07/24/2019 7:22 pm CLINICAL HISTORY: fall;Pain COMPARISON: No comparisons FINDINGS: No fracture is identified. There is no dislocation or periosteal reaction noted. Epiphyses and growth plates are normal in appearance. No foreign body or other soft tissue abnormality. IMPRESSION: Negative right wrist examination.
== END 2019-07-24 20:08 | disposition home or self-care (01) ==
LOC: ER 18:17
DX: M25.531 Pain in right wrist (principal); Z72.0 Tobacco use
CPT/HCPCS: 99283

== ENCOUNTER 2020-01-18 10:25 | Emergency (ER) | payer SELFPAY ==
[2020-01-18] MEDS ORDERED: ACETAMINOPHEN 500 MG TAB ONE (23:07)
--- NOTE | 2020-01-19 00:04 | EDPHYS ---
Physician Documentation [facility] Name: Jasen Mcqueen Age: 24 yrs Sex: Male : 1995 Arrival Date: 01/18/2020 Time: 22:26 Bed 12 Private MD: ED Physician Gianni Rinaldi HPI: 01/18 00:00 This 24 yrs old Male presents to ER via Ambulatory with complaints of Sore jmm Throat. 00:00 The patient presents with sore throat. Onset: The symptoms/episode began/occurred jmm gradually, 2 day(s) ago. Modifying factors: The symptoms are alleviated by nothing, the symptoms are aggravated by nothing. Associated signs and symptoms: Pertinent positives: chills, earache, Pertinent negatives shortness of breath. The patient has experienced similar episodes in the past. Historical: - Allergies: 01/17 22:45 Tylenol-Codeine #3; iw - Home Meds: 22:45 None [Active]; iw - PMHx: 22:45 Asthma; Kidney stones; iw - PSHx: 22:45 None; iw - Social history:: Smoking status: Patient reports the use of cigarette tobacco products, cigars. ROS: 01/18 00:00 Constitutional: Positive for fever. jmm ENT: Positive for sore throat. Respiratory: Negative for shortness of breath. All other systems are negative. Exam: 00:00 Constitutional: This is a well developed, well nourished patient who is awake, alert, jmm and in no acute distress. Head/Face: atraumatic. Eyes: EOMI, no conjunctival erythema appreciated 00:00 Chest/axilla: Normal chest wall appearance and motion. Cardiovascular: Regular rate and rhythm. No edema appreciated Respiratory: Normal respirations, no respiratory distress appreciated Abdomen/GI: Non distended, soft Back: Normal ROM Skin: General appearance color normal MS/ Extremity: Moves all extremities, no obvious deformities appreciated, no edema noted to the lower extremities Neuro: Awake and alert, normal gait Psych: Behavior is normal, Mood is normal, Patient is cooperative and pleasant 00:00 ENT: Posterior pharynx: Airway: normal, Uvula: midline, erythema, that is moderate, peritonsillar mass, is not appreciated. Vital Signs: 01/17 22:43 BP 134 / 86; Pulse 124; Resp 18; Temp 101.4(TE); Pulse Ox 100% on R/A; Weight 95.25 kg; iw Height 5 ft. 9 in. (175.26 cm); Pain 05/19; 23:55 BP 130 / 95; Pulse 118; Resp 16; Temp 99.5; Pulse Ox 100% on R/A; iw 22:43 Body Mass Index 31.01 (95.25 kg, 175.26 cm) MDM: 23:54 [facility] 01/18 00:02 Data reviewed: vital signs, nurses notes. Counseling: I had a detailed discussion with beligca the patient and/or guardian regarding: the historical points, exam findings, and any diagnostic results supporting the discharge/admit diagnosis, the need for outpatient follow up, to return to the emergency department if symptoms worsen or persist or if there are any questions or concerns that arise at home. ED course: Patient is alert and non toxic in appearance in the ED. Patient is advised to follow up with pcp and otherwise given strict return precautions. patient understood and agrees with the plan of care. . 01/17 22:46 Order name: Flu 01/17 22:46 Order name: Strep 01/17 23:32 Order name: Group A Streptococcus Rapid Sc; Complete Time: 23:41 EDMS 01/17 23:33 Order name: Influenza Screen (A ; Complete Time: 23:41 EDMS Administered Medications: 01/17 22:55 Drug: Tylenol 1000 mg Route: PO; Disposition: 01/18 01:49 Co-signature as Attending Physician, Gianni Rinaldi MD. rn Disposition: 01/19/20 00:03 Discharged to Home. Impression: Streptococcal pharyngitis. - Condition is Stable. - Discharge Instructions: Strep Throat. - Prescriptions for Amoxicillin 875 mg Oral Tablet - take 1 tablet by ORAL route every 12 hours for 10 days; 20 tablet. - Work release form, Medication Reconciliation Form, Thank You Letter, Antibiotic Education, Prescription Opioid Use form. - Follow up: Private Physician; When: 2 - 3 days; Reason: Recheck today's complaints, Continuance of care, Re-evaluation by your physician. Signatures: Dispatcher [employer] EDMS Robin Hamilton PA PA jmm Williams, Irene, RN RN Gianni Rinaldi MD MD rn [place], MyKena mw2 Corrections: (The following items were deleted from the chart) 00:30 00:03 01/19/2020 00:03 Discharged to Home. Impression: Streptococcal pharyngitis. mw2 Condition is Stable. Forms are Medication Reconciliation Form, Thank You Letter, Antibiotic Education, Prescription Opioid Use. Follow up: Private Physician; When: 2 - 3 days; Reason: Recheck today's complaints, Continuance of care, Re-evaluation by your physician. belgica
--- NOTE | 2020-01-19 00:04 | ER ---
Nurse's Notes [facility] Name: Jasen Mcqueen Age: 24 yrs Sex: Male : 1995 Arrival Date: 01/18/2020 Time: 22:26 Bed 12 Private MD: Diagnosis: Streptococcal pharyngitis Presentation: 01/17 22:43 Chief complaint: Patient states: fever, chills, sore throat X 2 days. Coronavirus iw screen: chills, fever. Ebola Screen: Patient negative for fever greater than or equal to 101.5 degrees Fahrenheit, and additional compatible Ebola Virus Disease symptoms Patient denies exposure to infectious person. Patient denies travel to an Ebola-affected area in the 21 days before illness onset. No symptoms or risks identified at this time. Initial Sepsis Screen: Does the patient meet any 2 criteria? No. Patient's initial sepsis screen is negative. Does the patient have a suspected source of infection? No. Patient's initial sepsis screen is negative. Risk Assessment: Do you want to hurt yourself or someone else? Patient reports no desire to harm self or others. Onset of symptoms was January 16, 2020. 22:43 Method Of Arrival: Ambulatory iw 22:43 Acuity: UZIEL 3 iw Historical: - Allergies: 22:45 Tylenol-Codeine #3; iw - Home Meds: 22:45 None [Active]; iw - PMHx: 22:45 Asthma; Kidney stones; iw - PSHx: 22:45 None; iw - Social history:: Smoking status: Patient reports the use of cigarette tobacco products, cigars. Vital Signs: 22:43 BP 134 / 86; Pulse 124; Resp 18; Temp 101.4(TE); Pulse Ox 100% on R/A; Weight 95.25 kg; iw Height 5 ft. 9 in. (175.26 cm); Pain 4/10; 23:55 BP 130 / 95; Pulse 118; Resp 16; Temp 99.5; Pulse Ox 100% on R/A; iw 22:43 Body Mass Index 31.01 (95.25 kg, 175.26 cm) iw ED Course: 22:26 Patient arrived in ED. cl3 22:44 Triage completed. iw 22:45 Arm band placed on. iw 22:55 Strep Sent. iw 22:55 Flu Sent. iw 23:41 Robin Hamilton PA is PHCP. [facility] 23:41 Gianni Rinaldi MD is Attending Physician. [facility] 01/18 00:28 Catalina Choi, RN is Primary Nurse. dm5 Administered Medications: 01/17 22:55 Drug: Tylenol 1000 mg Route: PO; iw Outcome: 01/18 00:03 Discharge ordered by . [facility] 00:30 Patient left the ED. mw2 Signatures: Catalina Choi, RN RN [facility] Robin Hamilton PA PA Vera Agosto RN RN Jared Elizabeth mw2 Marquita Mir cl3
== END 2020-01-19 00:30 | disposition home or self-care (01) ==
LOC: ER 10:25
DX: J02.0 Streptococcal pharyngitis (principal); F17.290 Nicotine dependence, other tobacco product, uncomplicated; Z88.5 Allergy status to narcotic agent
CPT/HCPCS: 87081; 87804; 99283

== ENCOUNTER 2020-09-06 15:58 | Emergency (ER) | payer SELFPAY ==
--- OUTSIDE RECORDS SUMMARY | 2020-09-06 16:00 | XMS REPORT | Continuity of Care Document ---
:1995 Author Organization [facility] t Address [address] [place] [address] Care Team Providers Name Role Phone Pcp, Does Not Have Primary Care Physician Unavailable Maria L VILLEGAS, J Attending Clinician Payers Payer Name Policy Type Policy Number Effective Date Expiration Date S ource Problems This patient has no known problems. Allergies, Adverse Reactions, Alerts Allergy Allergy Status Severity Reaction(s) Onset Inactive Treating Comm ents Source Name Type Date Date Clinician Saira Weiner Active [place] ty to 05-30 Health adverse 00:00: reaction 00 s to drug Social History Social Habit Start Date Stop Date Quantity Comments Source Sex Assigned At [facility] Medications This patient has no known medications. Vital Signs Vital Name Observation Time Observation Value Comments Source Systolic blood pressure 2020-05-30 20:58:00 124 mm[Hg] [facility] Diastolic blood pressure 2020-05-30 20:58:00 81 mm[Hg] [facility] Heart rate 2020-05-30 20:58:00 84 /min [facility] Body temperature 2020-05-30 20:58:00 36.94 Kierra Martin is [facility] Respiratory rate 2020-05-30 20:58:00 18 /min Martin is [facility] Oxygen saturation in 2020-05-30 20:58:00 96 /min [facility] Arterial blood by Pulse oximetry Body weight 2020-05-30 17:36:00 99.791 kg [facility] BMI 2020-05-30 17:36:00 32.49 kg/m2 [facility] Body height 2020-05-30 17:36:00 175.3 cm [facility] ealt Procedures Procedure Date / Time Performed Performing Clinician Sourc e XRAY HAND 3 VIEWS MIN 2020-05-30 18:36:31 Tamra Blunt [facility] XRAY WRIST 3 VIEWS MIN 2020-05-30 18:36:31 Merlene Tamra tinoco [facility] Plan of Care Planned Activity Planned Date Details Comments Source Future Scheduled Test 2020-11-09 00:00:00 IMM Influenza [facility] Seasonal Nov to April (>/= 19 yrs) [code = IMM Influenza Seasonal Nov to April (>/= 19 yrs)] Future Scheduled Test 2009 00:00:00 COVID-19 Vaccine (1) [facility] [code = COVID-19 Vaccine (1)] Encounters Start End Encounter Admission Attending Care Care Encounter Source Date/Time Date/Time Type Type Clinicians Facility Department ID 2020-05-30 2020-05-30 Emergency [facility] [id number] [place] 19:27:00 21:10:00 [facility] 2020-05-30 2020-05-30 Emergency [facility] [id number] [place] 18:26:21 18:36:37 Health Results Test Description Test Time Test Comments Results Result Sourc e Comments XRAY WRIST 3 2020-05-30 IMPRESSION: Acute Martin is VIEWS MIN 18:56:02 mildly displaced Health fracture in the distal fifth metacarpal neck(Boxer's fracture) with associated soft tissue swelling. Dictated By: John Paniagua MD, 05/30/2020 6:41 PM I have reviewed the study and agree with the findings in this report. Signed By: Mazin Hopkins MD, 05/30/2020 6:56 PM Interface, Rad/Mammog In - 05/30/2020 7:01 PM CDT EXAM: XR RIGHT HAND 3 VIEWSEXAM: XR RIGHT WRIST 3 VIEWSDATE: 05/30/2020 6:36 PMINDICATION: boxers fx, Pain of right hand COMPARISON: None availableTECHNIQUE: 3 views of the hand, 3 views of the wristFINDINGS: Hand: Acute mildly discussed fracture in the distal fifth metacarpalwith mild volar articulation of the distal fragment.Wrist: No acute fracture or malalignment is identified.Soft tissues: Medial hand soft tissue swelling.IMPRESSIONI MPRESSION: Acute mildly displaced fracture in the distal fifth metacarpal neck(Boxer's fracture) with associated soft tissue swelling. Dictated By: John Paniagua MD, 05/30/2020 6:41 PMI have reviewed the study and agree with the findings in this report.Signed By: Mazin Hopkins MD, 05/30/2020 6:56 PM XRAY HAND 3 VIEWS 2020-05-30 IMPRESSION: Acute [place] MIN 18:56:02 mildly displaced Health fracture in the distal fifth metacarpal neck(Boxer's fracture) with associated soft tissue swelling. Dictated By: John Paniagua MD, 05/30/2020 6:41 PM I have reviewed the study and agree with the findings in this report. Signed By: Mazin Hopkins MD, 05/30/2020 6:56 PM Interface, Rad/Mammog In - 05/30/2020 7:01 PM CDT EXAM: XR RIGHT HAND 3 VIEWSEXAM: XR RIGHT WRIST 3 VIEWSDATE: 05/30/2020 6:36 PMINDICATION: boxers fx, Pain of right hand COMPARISON: None availableTECHNIQUE: 3 views of the hand, 3 views of the wristFINDINGS: Hand: Acute mildly discussed fracture in the distal fifth metacarpalwith mild volar articulation of the distal fragment.Wrist: No acute fracture or malalignment is identified.Soft tissues: Medial hand soft tissue swelling.IMPRESSIONI MPRESSION: Acute mildly displaced fracture in the distal fifth metacarpal neck(Boxer's fracture) with associated soft tissue swelling. Dictated By: John Paniagua MD, 05/30/2020 6:41 PMI have reviewed the study and agree with the findings in this report.Signed By: Mazin Hopkins MD, 05/30/2020 6:56 PM
--- NOTE | 2020-09-06 16:59 | EDPHYS ---
Physician Documentation [facility] Name: Jasen Mcqueen Age: 25 yrs Sex: Male : 1995 Arrival Date: 09/06/2020 Time: 16:00 Bed Waiting Private MD: ED Physician Dandy Hidalgo HPI: 09/06 23:27 This 25 yrs old Male presents to ER via Ambulatory with complaints of kb Toothache - abscess, Headache. 23:27 The patient presents with pain, redness, swelling. The problem is located in the lower kb left third molar (#17). Associated signs and symptoms: Pertinent positives: pain, redness in area, swelling. The patient has experienced similar episodes in the past, a few times. The patient has not recently seen a physician. 23:27 Onset: The symptoms/episode began/occurred 4 day(s) ago. Duration: The symptoms are kb continuous. Modifying factors: The symptoms are alleviated by nothing, the symptoms are aggravated by nothing. Severity of symptoms: At their worst the symptoms were mild, moderate, in the emergency department the symptoms are unchanged. Pt reports he has a tooth abscess and couldn't get into the dentist this week because of work. Came in to see if he could get antibiotics to help it until he could see a dentist next week. Historical: - Allergies: 16:56 Codeine; aa5 - PMHx: 16:56 Asthma; Kidney stones; aa5 - Immunization history:: Adult Immunizations unknown. - Social history:: Smoking status: Patient reports the use of cigarette tobacco products, smokes one-half pack cigarettes per day. ROS: 23:27 Constitutional: Negative for fever, chills, and weight loss. kb 23:27 ENT: Positive for dental pain. 23:27 All other systems are negative. Exam: 23:26 Constitutional: This is a well developed, well nourished patient who is awake, alert, kb and in no acute distress. Head/Face: Normocephalic, atraumatic. Respiratory: Respirations even and unlabored. No increased work of breathing, no retractions or nasal flaring. Skin: Warm, dry with normal turgor. Normal color. MS/ Extremity: Pulses equal, no cyanosis. Neurovascular intact. Full, normal range of motion. Neuro: Awake and alert, GCS 15, oriented to person, place, time, and situation. Moves all extremities. Normal gait. Psych: Awake, alert, with orientation to person, place and time. Behavior, mood, and affect are within normal limits. 23:26 ENT: Dental exam: abscess, that is mild, specifically in the lower left third molar (#17), gum swelling, pain. Vital Signs: 16:56 BP 159 / 91; Pulse 99; Resp 16 S; Temp 99.5(O); Pulse Ox 99% on R/A; aa5 MDM: 16:57 Patient medically screened. kb 23:26 Data reviewed: vital signs, nurses notes. Data interpreted: Pulse oximetry: on room air kb is 99 %. Interpretation: normal. Counseling: I had a detailed discussion with the patient and/or guardian regarding: the historical points, exam findings, and any diagnostic results supporting the discharge/admit diagnosis, the need for outpatient follow up, a dentist, to return to the emergency department if symptoms worsen or persist or if there are any questions or concerns that arise at home. Administered Medications: 17:00 Drug: Augmentin (Amoxicillin-Clavulanate) 875 mg Route: PO; aa5 17:00 Follow up: Response: Medication administered at discharge. aa5 Disposition: 09/07 06:28 Co-signature as Attending Physician, Dandy Hidalgo MD I agree with the assessment and ori plan of care. Disposition Summary: 09/06/20 16:58 Discharge Ordered Location: Home kb Condition: Stable kb Diagnosis - Periapical abscess without sinus kb Followup: kb - With: Emergency Department - When: As needed - Reason: Worsening of condition Followup: kb - With: Private Physician - When: 2 - 3 days - Reason: Recheck today's complaints, Continuance of care, Re-evaluation by your physician Discharge Instructions: - Discharge Summary Sheet kb - Dental Pain, [id number] kb - Dental Abscess, [id number] kb Forms: - Medication Reconciliation Form kb - Thank You Letter kb - Antibiotic Education kb - Prescription Opioid Use kb Prescriptions: - Augmentin 875-125 mg Oral Tablet - take 1 tablet by ORAL route every 12 hours for 10 days; 20 tablet; Refills: 0, kb Product Selection Permitted Signatures: Jody Jensen, HAT CONDITIONER-C HAT CONDITIONER-Dandy Flores MD MD cha Calderon, Audri, RN RN aa5 Corrections: (The following items were deleted from the chart) 09/06 16:57 16:56 Allergies: Tylenol-Codeine #3; aa5 aa5
--- NOTE | 2020-09-06 16:59 | ER ---
Nurse's Notes [facility] Name: Jasen Mcqueen Age: 25 yrs Sex: Male : 1995 Arrival Date: 09/06/2020 Time: 16:00 Bed Waiting Private MD: Diagnosis: Periapical abscess without sinus Presentation: 09/06 16:56 Chief complaint: Patient states: Tooth abscess since Thursday. aa5 16:56 Coronavirus screen: At this time, the client does not indicate any symptoms associated aa5 with coronavirus-19. Ebola Screen: Patient negative for fever greater than or equal to 101.5 degrees Fahrenheit, and additional compatible Ebola Virus Disease symptoms. Initial Sepsis Screen: Does the patient meet any 2 criteria? No. Patient's initial sepsis screen is negative. Does the patient have a suspected source of infection? No. Patient's initial sepsis screen is negative. Risk Assessment: Do you want to hurt yourself or someone else? Patient reports no desire to harm self or others. Onset of symptoms was August 2020. 16:56 Method Of Arrival: Ambulatory aa5 16:56 Acuity: UZIEL 4 aa5 Triage Assessment: 16:56 General: Appears comfortable, Behavior is calm, cooperative. Pain: Complains of pain in aa5 tooth. EENT: Reports pain in tooth. Neuro: Level of Consciousness is awake, alert, obeys commands, Oriented to person, place, time, situation. Cardiovascular: Patient's skin is warm and dry. Respiratory: Airway is patent Respiratory effort is even, unlabored, Respiratory pattern is regular, symmetrical. GI: No signs and/or symptoms were reported involving the gastrointestinal system. : No signs and/or symptoms were reported regarding the genitourinary system. Derm: No signs and/or symptoms reported regarding the dermatologic system. Musculoskeletal: Range of motion: intact in all extremities. Historical: - Allergies: 16:56 Codeine; aa5 - PMHx: 16:56 Asthma; Kidney stones; aa5 - Immunization history:: Adult Immunizations unknown. - Social history:: Smoking status: Patient reports the use of cigarette tobacco products, smokes one-half pack cigarettes per day. Screenin:57 Abuse screen: Denies threats or abuse. Nutritional screening: No deficits noted. aa5 Tuberculosis screening: No symptoms or risk factors identified. Fall Risk None identified. Assessment: 17:00 Reassessment: Patient is alert, oriented x 3, equal unlabored respirations, skin aa5 warm/dry/pink. Vital Signs: 16:56 BP 159 / 91; Pulse 99; Resp 16 S; Temp 99.5(O); Pulse Ox 99% on R/A; aa5 ED Course: 16:00 Patient arrived in ED. as 16:56 Arm band placed on. aa5 16:56 Patient has correct armband on for positive identification. aa5 16:57 Jody Jensen FNP-C is PHCP. kb 16:57 Dandy Hidalgo MD is Attending Physician. kb 16:58 Triage completed. aa5 17:00 Katie Weaver, RN is Primary Nurse. aa5 17:00 No provider procedures requiring assistance completed. Patient did not have IV access aa5 during this emergency room visit. Administered Medications: 17:00 Drug: Augmentin (Amoxicillin-Clavulanate) 875 mg Route: PO; aa5 17:00 Follow up: Response: Medication administered at discharge. aa5 Outcome: 16:58 Discharge ordered by . kb 17:00 Discharged to home ambulatory, with significant other. aa5 17:00 Condition: stable 17:00 Discharge instructions given to patient, Instructed on discharge instructions, follow up and referral plans. medication usage, Demonstrated understanding of instructions, follow-up care, medications, Prescriptions given X 1. 17:00 Patient left the ED. aa5 Signatures: Jody Jensen FNP-C [employer] DRIER-Naila Prasad as Katie Weaver, RN RN aa5 Corrections: (The following items were deleted from the chart) 16:57 16:56 Allergies: Tylenol-Codeine #3; aa5 aa5
[2020-09-06] MEDS ORDERED: AMOX/K CLAV 875 MG TAB ONE (17:22)
[2020-09-06 23:35] VITALS: BP 159/91; TEMP 99.5; O2SAT 99
== END 2020-09-06 17:00 | disposition home or self-care (01) ==
LOC: ER 15:58
DX: K04.7 Periapical abscess without sinus (principal); F17.210 Nicotine dependence, cigarettes, uncomplicated; Z88.5 Allergy status to narcotic agent
CPT/HCPCS: 99283

== ENCOUNTER 2021-03-02 01:25 | Emergency (ER) | payer SELFPAY ==
--- OUTSIDE RECORDS SUMMARY | 2021-03-02 01:28 | XMS REPORT | Continuity of Care Document ---
:1995 Author Organization [facility] t Address [address] [place] [address] Care Team Providers Name Role Phone Pcp, Does Not Have A Primary Care Physician Mary BARRETO, T Attending Clinician Unavailable Elena RN Attending Clinician Unavailable Only, Db Test Attending Clinician Unavailable Ian PAINTER Attending Clinician IAN Attending Clinician Unavailable Doctor Unassigned, Name Attending Clinician Unavailable Liliam MCNEIL Attending Clinician Unavailable Payers Payer Name Policy Type Policy Number Effective Date Expiration Date S ource Problems This patient has no known problems. Allergies, Adverse Reactions, Alerts Allergy Allergy Status Severity Reaction(s) Onset Inactive Treating Comm ents Source Name Type Date Date Clinician NO KNOWN Drug Active [facility] ity of [facility] Social History Social Habit Start Date Stop Date Quantity Comments Source Exposure to Not sure [facility] SARS-CoV-2 (event) Medica l Branch Sex Assigned At [birth year] [facility] 00:00:00 00:00:00 [facility] Smoking Status Start Date Stop Date Source Unknown if ever smoked [facility] Medications Ordered Filled Start Stop Current Ordering Indication Dosage Frequency Signature Comments Components Source Medication Medication Date Date Medication? Clinician (SIG) Name Name No known No [facility] medications - ity of 20:12: [address] No known No [facility] medications - ity of 20:12: [address] No known No [facility] medications - ity of 20:12: [address] Procedures This patient has no known procedures. Encounters Start End Encounter Admission Attending Care Care Encounter Source Date/Time Date/Time Type Type Clinicians Facility Department ID 2021-02-16 2021-02-16 Letter DENNY Hernandez [id number] [facility] 00:00:00 00:00:00 (Out) Jennifer Martins LETICIA [id number] [facility] [id number] Jason as [phone] [address] 2021-02-16 2021-02-16 Telephone DENNY Parker [id number] Univers 00:00:00 00:00:00 Leenaricci LETICIA [id number] [facility] [id number] Jason as [phone] [address] 2021-02-14 2021-02-14 Laboratory Only, Ang Db Test [facility] [id number] Univers 20:15:00 20:30:00 Only [facility] [id number] ity of [place] [id number] Jason as HERB?BLEA [phone] [address] MEDICAL OFFICE [facility]ILDING 2021-02-14 2021-02-14 [facility] [id number] [facility] 20:15:00 20:15:[address] [facility] 2021-02-14 2021-02-14 Letter Doctor BALDWIN [id number] Univers 00:00:00 00:00:00 (Out) Unassigned, LETICIA [id number] ity of [place] [facility] [id number] Jason as [phone] [address] 2021-02-14 2021-02-14 Letter Doctor BALDWIN [id number] Univers 00:00:00 00:00:00 (Out) Unassigned, LETICIA [id number] ity [address] [place] [facility] [id number] Jason as [phone] [address] 2020-05-30 2020-05-30 Emergency [facility] [id number] [place] 19:27:00 21:10:00 Queue-it 2020-05-30 2020-05-30 Emergency [facility] [id number] [place] 18:26:21 18:36:37 Health Results This patient has no known results.
[2021-03-02] MEDS ORDERED: NA CHLORIDE 0.9% 1,000 ML ONE (03:59)
[2021-03-02] MEDS ORDERED: KETOROLAC 30 MG/ML INJ ONE (03:59)
[2021-03-02 04:12] LABS: Absolute Lymphocytes (CBC) 3.6 K/uL (0.7-4.9); Hematocrit 43.3 % (39.6-49.0); Lymphocytes % 30.2 % (15.3-44.8); MPV 8.6 fL (7.6-11.3); RBC Red Blood Cell Count 4.92 M/uL (4.33-5.43)
[2021-03-02 04:26] LABS: ALT/SGPT 64 U/L (12-78); AST/SGOT 20 U/L (15-37); Albumin 3.5 g/dL (3.4-5.0); Alkaline Phosphatase 102 U/L (45-117); BUN Blood Urea Nitrogen 13 mg/dL (7-18); Bicarbonate 28 mmol/L (21-32); Bilirubin Direct 0.1 mg/dL (0-0.2); Bilirubin Total 0.3 mg/dL (0.2-1.0); Glucose Level 96 mg/dL (74-106); Lipase 68 U/L (73-393); Potassium 3.9 mmol/L (3.5-5.1); Protein, Total 7.2 g/dL (6.4-8.2); Sodium Level 139 mmol/L (136-145)
--- NOTE | 2021-03-02 05:18 | ER ---
Nurse's Notes [facility] Name: Jasen Mcqueen Age: 25 yrs Sex: Male : 1995 Arrival Date: 03/02/2021 Time: 01:29 Bed 5 Private MD: Diagnosis: Nephrolithiasis Presentation: 03/02 01:39 Chief complaint: Patient states: left sided flank pain, has a history of kidney stones as6 and this feels the same, denies urinary symptoms. Coronavirus screen: At this time, the client does not indicate any symptoms associated with coronavirus-19. Ebola Screen: No symptoms or risks identified at this time. Initial Sepsis Screen: Does the patient meet any 2 criteria? No. Patient's initial sepsis screen is negative. Does the patient have a suspected source of infection? No. Patient's initial sepsis screen is negative. Risk Assessment: Do you want to hurt yourself or someone else? Patient reports no desire to harm self or others. Onset of symptoms was March 01, 2021. 01:39 Method Of Arrival: Ambulatory as6 01:39 Acuity: UZIEL 3 as6 Triage Assessment: 01:42 General: Appears uncomfortable, Behavior is calm, cooperative. Pain: Complains of pain as6 in left flank. GI:. Musculoskeletal: Reports pain in left flank. Historical: - Allergies: 01:41 Codeine; as6 - Home Meds: 01:41 None [Active]; as6 - PMHx: 01:41 Asthma; Kidney stones; as6 - PSHx: 01:41 None; as6 - Immunization history:: Client reports receiving the 2nd dose of the Covid vaccine, moderna. - Social history:: Smoking status: Patient reports the use of cigarette tobacco products, cigars. - Code Status:: Full code. Screenin:34 Abuse screen: Denies threats or abuse. Nutritional screening: No deficits noted. st1 Tuberculosis screening: No symptoms or risk factors identified. Fall Risk None identified. Assessment: 04:33 Reassessment: No changes from previously documented assessment. General: Appears st1 uncomfortable, obese, well groomed, well developed, well nourished, Behavior is calm, cooperative. Neuro: No deficits noted. Respiratory: No deficits noted. Musculoskeletal: No deficits noted. 04:35 GI: Bowel sounds present X [address] 04:35 GI: Abd is soft and non tender X [address]1 05:30 General: Appears in no apparent distress. comfortable, Behavior is calm, cooperative, al4 c/o previous discomfort in left side lower back . Pain: Denies pain. Neuro: Level of Consciousness is awake, alert, obeys commands, Oriented to person, place, time, situation. Cardiovascular: Capillary refill < 3 seconds Patient's skin is warm and dry. Respiratory: Airway is patent Respiratory effort is even, unlabored, Respiratory pattern is regular, symmetrical. GI: Bowel sounds present X 4 quads. Abd is soft and non tender. : No signs and/or symptoms were reported regarding the genitourinary system. EENT: No signs and/or symptoms were reported regarding the EENT system. Derm: No signs and/or symptoms reported regarding the dermatologic system. Musculoskeletal: No deficits noted. Vital Signs: 01:39 BP 158 / 86; Pulse 86; Resp 18 S; Temp 97.9(TE); Pulse Ox 100% on R/A; Weight 92.99 kg as6 (R); Height 5 ft. 9 in. (175.26 cm) (R); Pain 8/10; 04:00 BP 125 / 64; Pulse 69; Resp 16; Pulse Ox 99% on R/A; st1 04:00 BP 124 / 73; Pulse 66; Resp 16; Temp 98.0; Pulse Ox 99% on R/A; st1 05:15 BP 132 / 88; Pulse 86; Resp 18 S; Pulse Ox 100% on R/A; Pain 1/10; al4 01:39 Body Mass Index 30.27 (92.99 kg, 175.26 cm) as6 Cameron Coma Score: 04:36 Eye Response: spontaneous(4). Verbal Response: oriented(5). Motor Response: obeys st1 commands(6). Total: 15. ED Course: 01:29 Patient arrived in ED. ja2 01:41 Triage completed. as6 01:42 Arm band placed on. as6 03:32 Dougie Paz MD is Attending Physician. mh7 03:45 Darlin Barrios RN is Primary Nurse. st1 03:56 Basic Metabolic Panel Sent. st1 03:56 CBC with Diff Sent. st1 03:56 Hepatic Function Sent. st1 03:56 Lipase Sent. st1 03:56 CT Stone Protocol Sent. st1 04:06 CT Stone Protocol In Process Unspecified. EDMS 04:10 Basic Metabolic Panel Sent. st1 04:10 CBC with Diff Sent. st1 04:10 Hepatic Function Sent. st1 04:10 Lipase Sent. st1 04:35 Patient has correct armband on for positive identification. Bed in low position. Call st1 light in reach. Side rails up X 1. Adult w/ patient. 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 NIBP on. Door closed. Noise minimized. Verbal reassurance given. Head of bed elevated. 05:17 Yoav Sanchez MD is Referral Physician. [facility] 05:39 Assist provider with bone marrow aspiration. IV discontinued, intact, bleeding al4 controlled, No redness/swelling at site. Pressure dressing applied. Administered Medications: 04:10 Drug: NS 0.9% 1000 ml Route: IV; Rate: 1000 ml; Site: right antecubital; st1 04:10 Drug: Ketorolac 30 mg Route: IVP; Site: right antecubital; st1 Outcome: 05:18 Discharge ordered by . [facility] 05:39 Discharged to home ambulatory. al4 05:39 Condition: stable 05:39 Discharge instructions given to patient, Instructed on discharge instructions, follow up and referral plans. medication usage, Demonstrated understanding of instructions, follow-up care, medications, Prescriptions given X 1. 05:41 Patient left the ED. al4 Signatures: Dispatcher [employer] Dougie Gan MD MD 7 Sofia No2 James Damon, MARY LOU RN albert6 Richardson Soto al4 Darlin Barrios, MARY LOU RN st1
--- NOTE | 2021-03-02 05:18 | EDPHYS ---
Physician Documentation [facility] Name: Jasen Mcqueen Age: 25 yrs Sex: Male : 1995 Arrival Date: 03/02/2021 Time: 01:29 Bed 5 Private MD: ED Physician Dougie Paz HPI: 03/02 03:40 This 25 yrs old Male presents to ER via Ambulatory with complaints of Possible Kidney mh7 Stone. 03:40 The patient complains of pain in the left flank. The pain does not radiate. Onset: The mh7 symptoms/episode began/occurred last night, at 22:30. Modifying factors: The symptoms are alleviated by nothing. the symptoms are aggravated by movement, palpation/percussion. Associated signs and symptoms: Pertinent negatives: diarrhea, dizziness, dysuria, fever, urinary frequency, headache, hematuria, nausea, pain radiating to the lower extremities, vomiting. Severity of pain: At its worst the pain was moderate last night, in the emergency department the pain has improved moderately. The patient has experienced similar episodes in the past, several times. Historical: - Allergies: 01:41 Codeine; as6 - Home Meds: 01:41 None [Active]; as6 - PMHx: 01:41 Asthma; Kidney stones; as6 - PSHx: 01:41 None; as6 - Immunization history:: Client reports receiving the 2nd dose of the Covid vaccine, moderna. - Social history:: Smoking status: Patient reports the use of cigarette tobacco products, cigars. - Code Status:: Full code. ROS: 03:40 Constitutional: Negative for fever, chills, and weight loss, Eyes: Negative for injury, mh7 pain, redness, and discharge, ENT: Negative for injury, pain, and discharge, Neck: Negative for injury, pain, and swelling, Cardiovascular: Negative for chest pain, palpitations, and edema, Respiratory: Negative for shortness of breath, cough, wheezing, and pleuritic chest pain, Abdomen/GI: Negative for abdominal pain, nausea, vomiting, diarrhea, and constipation, : Negative for injury, bleeding, discharge, and swelling, MS/Extremity: Negative for injury and deformity, Skin: Negative for injury, rash, and discoloration, Neuro: Negative for headache, weakness, numbness, tingling, and seizure, Psych: Negative for depression, anxiety, suicide ideation, homicidal ideation, and hallucinations, Allergy/Immunology: Negative for hives, rash, and allergies, Endocrine: Negative for neck swelling, polydipsia, polyuria, polyphagia, and marked weight changes, Hematologic/Lymphatic: Negative for swollen nodes, abnormal bleeding, and unusual bruising. Exam: 03:40 Constitutional: This is a well developed, well nourished patient who is awake, alert, mh7 and in no acute distress. Head/Face: Normocephalic, atraumatic. Eyes: Pupils equal round and reactive to light, extra-ocular motions intact. Lids and lashes normal. Conjunctiva and sclera are non-icteric and not injected. Cornea within normal limits. Periorbital areas with no swelling, redness, or edema. Neck: Trachea midline, no thyromegaly or masses palpated, and no cervical lymphadenopathy. Supple, full range of motion without nuchal rigidity, or vertebral point tenderness. No Meningismus. Chest/axilla: Normal chest wall appearance and motion. Nontender with no deformity. No lesions are appreciated. Cardiovascular: Regular rate and rhythm with a normal S1 and S2. No gallops, murmurs, or rubs. Normal PMI, no JVD. No pulse deficits. Respiratory: Lungs have equal breath sounds bilaterally, clear to auscultation and percussion. No rales, rhonchi or wheezes noted. No increased work of breathing, no retractions or nasal flaring. Abdomen/GI: Soft, non-tender, with normal bowel sounds. No distension or tympany. No guarding or rebound. No evidence of tenderness throughout. 03:40 Skin: Warm, dry with normal turgor. Normal color with no rashes, no lesions, and no evidence of cellulitis. MS/ Extremity: Pulses equal, no cyanosis. Neurovascular intact. Full, normal range of motion. Neuro: Awake and alert, GCS 15, oriented to person, place, time, and situation. Cranial nerves II-XII grossly intact. Motor strength 5/5 in all extremities. Sensory grossly intact. Cerebellar exam normal. Normal gait. Psych: Awake, alert, with orientation to person, place and time. Behavior, mood, and affect are within normal limits. 03:40 Back: normal spinal alignment noted, CVA tenderness, that is mild, is noted on the left, muscle spasm, is not present. Vital Signs: 01:39 BP 158 / 86; Pulse 86; Resp 18 S; Temp 97.9(TE); Pulse Ox 100% on R/A; Weight 92.99 kg as6 (R); Height 5 ft. 9 in. (175.26 cm) (R); Pain 8/10; 04:00 BP 125 / 64; Pulse 69; Resp 16; Pulse Ox 99% on R/A; st1 04:00 BP 124 / 73; Pulse 66; Resp 16; Temp 98.0; Pulse Ox 99% on R/A; st1 05:15 BP 132 / 88; Pulse 86; Resp 18 S; Pulse Ox 100% on R/A; Pain 1/10; al4 01:39 Body Mass Index 30.27 (92.99 kg, 175.26 cm) as6 Fitzpatrick Coma Score: 04:36 Eye Response: spontaneous(4). Verbal Response: oriented(5). Motor Response: obeys st1 commands(6). Total: 15. MDM: 05:16 Differential diagnosis: nephrolithiasis, pyelonephritis, UTI. Data reviewed: vital [facility] signs, nurses notes, old medical records, lab test result(s), CBC, electrolytes, urinalysis, radiologic studies, CT scan. Data interpreted: Pulse oximetry: on room air is 99 %. Interpretation: normal. Counseling: I had a detailed discussion with the patient and/or guardian regarding: the historical points, exam findings, and any diagnostic results supporting the discharge/admit diagnosis, lab results, radiology results, to return to the emergency department if symptoms worsen or persist or if there are any questions or concerns that arise at home. Response to treatment: the patient's symptoms have resolved after treatment, the patient's blood pressure is in an acceptable range, mental status has returned to baseline, the patient no longer shows bradycardia, the patient is not short of breath, the patient is not tachycardic, the patient's pain is gone, the patient's temperature has normalized. 05:18 Patient medically screened. [facility] 03/02 03:40 Order name: Basic Metabolic Panel; Complete Time: 04:27 [facility] 03/02 03:40 Order name: CBC with Diff; Complete Time: 04:23 [facility] 03/02 03:40 Order name: Hepatic Function; Complete Time: 04:27 [facility] 03/02 03:40 Order name: Lipase; Complete Time: 04:27 [facility] 03/02 03:40 Order name: CT Stone Protocol [facility] 03/02 05:27 Order name: Urine Dipstick-Ancillary [facility] 03/02 03:40 Order name: IV Saline Lock; Complete Time: 03:56 [facility] 03/02 03:40 Order name: Labs collected and sent; Complete Time: 03:56 [facility] 03/02 03:40 Order name: Urine Dipstick-Ancillary (obtain specimen); Complete Time: 05:12 [facility] Administered Medications: 04:10 Drug: NS 0.9% 1000 ml Route: IV; Rate: 1000 ml; Site: right antecubital; st1 04:10 Drug: Ketorolac 30 mg Route: IVP; Site: right antecubital; st1 Disposition Summary: 03/02/21 05:18 Discharge Ordered Location: Home [facility] Problem: an acute exacerbation [facility] Symptoms: have improved [facility] Condition: Stable [facility] Diagnosis - Nephrolithiasis [facility] Followup: [facility] - With: Private Physician - When: 1 - 2 days - Reason: Worsening of condition, Recheck today's complaints, Continuance of care, Re-evaluation by your physician Followup: [facility] - With: Yoav Sanchez MD - When: 1 - 2 days - Reason: Worsening of condition, Recheck today's complaints Discharge Instructions: - Discharge Summary Sheet [facility] - Kidney Stones, [id number] [facility] Forms: - Medication Reconciliation Form [facility] - Thank You Letter [facility] - Work release form mw2 - Antibiotic Education [facility] - Prescription Opioid Use [facility] Prescriptions: - ketorolac 10 mg Oral tablet - take 1 tablet by ORAL route every 6 hours As needed not to exceed 40 mg in [facility] 24hrs; 12 tablet; Refills: 0, Product Selection Permitted Signatures: Dispatcher [employer] Dougie Gan MD MD 7 James Damon RN RN as6 Darlin Barrios RN RN st1
[2021-03-02 05:27] LABS: Urine Blood Negative (Negative); Urine Glucose Negative (Negative); Urine Protein Negative (Negative)
[2021-03-02 06:25] VITALS: TEMP 98
[2021-03-02 06:26] VITALS: BP 132/88; O2SAT 100
--- NOTE | 2021-03-02 16:11 | RAD REPORT ---
EXAM DESCRIPTION: CT - Stone Protocol - 03/02/2021 6:58 am CLINICAL HISTORY: 25 years Male FLANK PAIN, left lower back pain TECHNIQUE: Axial CT imaging of the abdomen and pelvis was performed without oral or intravenous cont rast. Sagittal and coronal reconstructed images were then performed. The CT study is performed acco rding to ALARA (as low as reasonably achievable) or ALARA/IMAGE GENTLY, with automatic adjustment of mA and/or kV according to patient size. Performed on: 03/02/2021 at 4:04 AM COMPARISON: 11/13/2018. FINDINGS: Lung bases: The lung bases are clear. Liver: The liver is normal in size and configuration. No focal hepatic abnormalities are appreciated on this unenhanced scan. Liver attenuation is within normal limits. Spleen: The spleen is normal is size, configuration and attenuation. No focal splenic abnormalities a re appreciated on this unenhanced scan. Gallbladder and bile duct: The gallbladder is partially distended and is unremarkable. There is no biliary ductal dilatation. Pancreas: The pancreas is grossly normal in size and configuration. Adrenal Glands: The adrenal glands are normal in size and configuration. Kidneys: The kidneys are normal in size and configuration. There is no evidence of hydronephrosis. Th ere is punctate bilateral nephrolithiasis. No focal renal abnormalities are identified. Stomach: The stomach is grossly normal. There is no definite hiatal hernia. Bowel: The bowel gas pattern is non specific and non obstructive. Appendix: The appendix is normal. Free air: There is no evidence of free air. Free fluid: There is no evidence of free fluid. Vasculature: The aorta is normal in caliber and contour. The inferior vena cava is grossly unremarkab le. Lymphadenopathy: No pathologic lymphadenopathy is identified. Bladder: The bladder is well distended and smooth in contour. Reproductive: The prostate gland is grossly within normal limits. Bones: No acute osseous abnormalities are identified. Soft tissues: No acute soft tissue abnormalities are identified. There is a tiny fat-containing ventr al umbilical hernia. IMPRESSION: 1. No evidence of acute intra-abdominal or intrapelvic pathology. There are no acute a bnormalities on this examination to explain the patient's reported clinical symptoms. 2. Punctate bilateral nephrolithiasis. 3. Tiny fat-containing ventral umbilical hernia. Electronically signed by: Chelly Wagoner DO 03/02/2021 5:02 AM PAPER GRADER Due to temporary technical issues with the PACS/Fluency reporting system, reports are being signed by the in house radiologists without review as a courtesy to insure prompt reporting. The interpreting radiologist is fully responsible for the content of the report.
== END 2021-03-02 05:41 | disposition home or self-care (01) ==
LOC: ER 01:25
DX: N20.0 Calculus of kidney (principal); F17.290 Nicotine dependence, other tobacco product, uncomplicated; Z88.5 Allergy status to narcotic agent
CPT/HCPCS: 36415; 74176; 76377; 80048; 80076; 81003; 83690; 85025; 96374; 99285; J7030

== ENCOUNTER 2021-09-01 02:39 | Emergency (ER) | payer SELFPAY ==
--- OUTSIDE RECORDS SUMMARY | 2021-09-01 02:42 | XMS REPORT | Continuity of Care Document ---
:1995 Author Organization [facility] t Address [address] [place] [address] Care Team Providers Name Role Phone Pcp, [...] Active Univers [facility]ER[facility]IE Class ity of S [facility] Social History Social Habit Start Date Stop Date Quantity Comments Source Exposure to Not sure [facility] SARS-CoV-2 (event) Medica l Branch Sex Assigned At [birth year] [facility] 00:00:00 00:00:00 [facility] Smoking Status Start Date Stop Date Source Unknown if ever smoked [facility] Medications Ordered Filled Start Stop Current Ordering Indication Dosage Frequency Signature Comments Components Source Medication Medication Date Date Medication? Clinician (SIG) Name Name No known No [facility] medications - ity of 20:12: [address] No known No [facility] medications - ity of 20:12: [address] No known No [facility] medications - ity of 20:12: [address] Procedures This patient has no known procedures. Encounters Start End Encounter Admission Attending Care Care Encounter Source Date/Time Date/Time Type Type Clinicians Facility Department ID 2021-02-16 2021-02-16 Letter DENNY Hernandez [id number] [facility] 00:00:00 00:00:00 (Out) Jennifer Martins LETICIA [id number] it y of [facility] [id number] Jason as [id number] [facility] [address] 2021-02-16 2021-02-16 Telephone DENNY Parker [id number] Univers 00:00:00 00:00:00 Anedariuszalma LETICIA [id number] ity of [facility] [id number] Jason as [phone] [facility] [address] 2021-02-14 2021-02-14 Laboratory Only, Ang Db Test [facility] [id number] Univers 20:15:00 20:30:00 Only Ian [facility] [id number] [facility] [id number] Jason as HERB?BLEA [phone] Sd dical [address] MEDICAL OFFICE BUILDING 2021-02-14 2021-02-14 [facility] [id number] Univers 20:15:00 20:15:00 ELADIA ity [facility] 2021-02-14 2021-02-14 Letter Doctor BALDWIN [id number] Univers 00:00:00 00:00:00 (Out) UnassignedLETICIA [id number] ity of [place] [facility] [id number] Jason as [id number] [address] 2020-05-30 2020-05-30 [facility] [id number] [place] 19:27:00 21:10:00 [place] 2020-05-30 2020-05-30 Emergency [facility] [id number] [place] 18:26:21 18:36:37 Health Results This patient has no known results.
--- NOTE | 2021-09-01 03:38 | EDPHYS ---
Physician Documentation [facility] Name: Jasen Mcqueen Age: 26 yrs Sex: Male : 1995 Arrival Date: 09/01/2021 Time: 02:42 Bed 17 Private MD: ED Physician Jorge Perez HPI: 09/01 06:05 This 26 yrs old Male presents to ER via Ambulatory with complaints of Abscess, ms3 Toothache. 06:05 26-year-old male with past medical history of asthma and kidney stones presents for ms3 left upper dental pain that has been ongoing for 3 days. Patient states the pain is a 7/10 described as aching. Patient endorses chills. Patient denies fevers, nausea, vomiting. Patient denies alleviating or inciting factors. Patient states he has not taken medication for his pain. Historical: - Allergies: 03:24 Codeine; lg3 - Home Meds: 03:24 None [Active]; lg3 - PMHx: 03:24 Asthma; Kidney stones; lg3 - PSHx: 03:24 None; lg3 - Immunization history:: Adult Immunizations up to date, Client reports receiving the 2nd dose of the Covid vaccine, moderna X2. - Social history:: Smoking status: Patient reports the use of cigarette tobacco products, smokes one-half pack cigarettes per day, Patient uses alcohol, occasionally. Patient/guardian denies using street drugs. ROS: 06:05 Eyes: Negative for injury, pain, redness, and discharge, Neck: Negative for injury, ms3 pain, and swelling, Cardiovascular: Negative for chest pain, and palpitations. Respiratory: Negative for shortness of breath, cough, wheezing, and pleuritic chest pain, Abdomen/GI: Negative for abdominal pain, nausea, vomiting, diarrhea, and constipation, MS/Extremity: Negative for injury and deformity, Skin: Negative for injury, rash, and discoloration. 06:05 Constitutional: Positive for chills. 06:05 ENT: Positive for dental pain. 06:05 All other systems are negative. Exam: 06:05 Constitutional: This is a well developed, well nourished patient who is awake, alert, ms3 and in no acute distress. Head/Face: Normocephalic, atraumatic. Chest/axilla: Normal chest wall appearance and motion. Nontender with no deformity. Cardiovascular: Regular rate and rhythm with a normal S1 and S2. No gallops, murmurs, or rubs. Normal PMI, no JVD. No pulse deficits. Respiratory: Lungs have equal breath sounds bilaterally, clear to auscultation and percussion. No rales, rhonchi or wheezes noted. No increased work of breathing, no retractions or nasal flaring. Abdomen/GI: Soft, non-tender, with normal bowel sounds. No distension or tympany. No guarding or rebound. No evidence of tenderness throughout. Skin: Warm, dry with normal turgor. Normal color with no rashes, no lesions, and no evidence of cellulitis. Psych: Awake, alert, with orientation to person, place and time. Behavior, mood, and affect are within normal limits. 06:05 Head/face: 06:05 ENT: Dental exam: gum swelling, that is moderate, specifically in the upper left third molar (#16). Vital Signs: 03:22 BP 133 / 79; Pulse 77; Resp 18 S; Temp 98.7(O); Pulse Ox 100% on R/A; Weight 104.33 kg lg3 (R); Height 5 ft. 9 in. (175.26 cm) (R); Pain 7/10; 03:22 Body Mass Index 33.96 (104.33 kg, 175.26 cm) lg3 MDM: 03:05 Patient medically screened. ms3 06:05 Differential diagnosis: abscess, Gingivitis vs dental pain. Data reviewed: vital signs, ms3 nurses notes, and as a result, I will discharge patient. Counseling: I had a detailed discussion with the patient and/or guardian regarding: the historical points, exam findings, and any diagnostic results supporting the discharge/admit diagnosis, the need for outpatient follow up, to return to the emergency department if symptoms worsen or persist or if there are any questions or concerns that arise at home. Administered Medications: No medications were administered Disposition Summary: 09/01/21 03:38 Discharge Ordered Location: Home ms3 Condition: Stable ms3 Diagnosis - Dental infection ms3 Followup: ms3 - With: Randell Crespo MD - When: 2 - 3 days - Reason: Recheck today's complaints Discharge Instructions: - Discharge Summary Sheet ms3 - Dental Pain, [id number] ms3 Forms: - Medication Reconciliation Form ms3 - Thank You Letter ms3 - Antibiotic Education ms3 - Prescription Opioid Use ms3 Prescriptions: - Augmentin 875-125 mg Oral Tablet - take 1 tablet by ORAL route every 12 hours for 10 days; 20 tablet; Refills: 0, ms3 Product Selection Permitted - Ibuprofen 600 mg Oral Tablet - take 1 tablet by ORAL route every 6 hours As needed take with food; 30 tablet; ms3 Refills: 0, Product Selection Permitted Signatures: Miranda Goetz, MARY LOU RN lg3 Jorge Perez DO DO ms3
--- NOTE | 2021-09-01 03:38 | ER ---
Nurse's Notes [facility] Name: Jasen Mcqueen Age: 26 yrs Sex: Male : 1995 Arrival Date: 09/01/2021 Time: 02:42 Bed 17 Private MD: Diagnosis: Dental infection Presentation: 09/01 03:22 Chief complaint: Patient states: i started having top left sided tooth pain about 2 lg3 days ago its getting worse and worse. I have had an abscess before and i think this is the same thing again. Coronavirus screen: Client denies travel out of the [place] in the last 14 days. At this time, the client does not indicate any symptoms associated with coronavirus-19. Ebola Screen: No symptoms or risks identified at this time. Initial Sepsis Screen: Does the patient meet any 2 criteria? No. Patient's initial sepsis screen is negative. Does the patient have a suspected source of infection? No. Patient's initial sepsis screen is negative. Risk Assessment: Do you want to hurt yourself or someone else? Patient reports no desire to harm self or others. Onset of symptoms was August 29, 2021. 03:22 Method Of Arrival: Ambulatory lg3 03:22 Acuity: UZIEL 4 lg3 Triage Assessment: 03:24 General: Appears in no apparent distress. uncomfortable, Behavior is calm, cooperative. lg3 Pain: Complains of pain in left buccal mucosa Pain currently is 7 out of 10 on a pain scale. EENT: No deficits noted. Reports pain in mouth. Neuro: No deficits noted. Level of Consciousness is awake, alert, obeys commands, Oriented to person, place, time, situation. Cardiovascular: No deficits noted. Denies chest pain, shortness of breath, Capillary refill < 3 seconds Clubbing of nail beds is absent JVD is absent Patient's skin is warm and dry. Respiratory: No deficits noted. Airway is patent Trachea midline Respiratory effort is even, unlabored, Respiratory pattern is regular, symmetrical, Breath sounds are clear bilaterally. GI: No deficits noted. No signs and/or symptoms were reported involving the gastrointestinal system. : No deficits noted. No signs and/or symptoms were reported regarding the genitourinary system. Derm: No deficits noted. Skin is intact, is healthy with good turgor, Skin is dry, Skin temperature is warm. Musculoskeletal: No deficits noted. No signs and/or symptoms reported regarding the musculoskeletal system. Circulation, motion, and sensation intact. Range of motion: intact in all extremities. Historical: - Allergies: 03:24 Codeine; lg3 - Home Meds: 03:24 None [Active]; lg3 - PMHx: 03:24 Asthma; Kidney stones; lg3 - PSHx: 03:24 None; lg3 - Immunization history:: Adult Immunizations up to date, Client reports receiving the 2nd dose of the Covid vaccine, moderna X2. - Social history:: Smoking status: Patient reports the use of cigarette tobacco products, smokes one-half pack cigarettes per day, Patient uses alcohol, occasionally. Patient/guardian denies using street drugs. Screenin:26 Abuse screen: Denies threats or abuse. Denies injuries from another. Nutritional lg3 screening: No deficits noted. Tuberculosis screening: No symptoms or risk factors identified. Fall Risk None identified. Assessment: 03:26 General: see triage assessment . lg3 Vital Signs: 03:22 BP 133 / 79; Pulse 77; Resp 18 S; Temp 98.7(O); Pulse Ox 100% on R/A; Weight 104.33 kg lg3 (R); Height 5 ft. 9 in. (175.26 cm) (R); Pain 7/10; 03:22 Body Mass Index 33.96 (104.33 kg, 175.26 cm) lg3 ED Course: 02:42 Patient arrived in ED. bp1 02:56 Jorge Perez DO is Attending Physician. ms3 03:17 Miranda Goetz, RN is Primary Nurse. lg3 03:24 Triage completed. lg3 03:24 Arm band placed on right wrist. lg3 03:26 Patient has correct armband on for positive identification. Bed in low position. Call lg3 light in reach. Side rails up X 1. Client placed on continuous cardiac and pulse oximetry monitoring. NIBP monitoring applied. Door closed. Noise minimized. Warm blanket given. 03:36 Randell Crespo MD is Referral Physician. ms3 03:53 No provider procedures requiring assistance completed. Patient did not have IV access as6 during this emergency room visit. Administered Medications: No medications were administered Medication: 03:54 VIS not applicable for this client. as6 Outcome: 03:38 Discharge ordered by . ms3 03:53 Discharged to home ambulatory. as6 03:53 Condition: stable 03:53 Discharge instructions given to patient, Instructed on discharge instructions, follow up and referral plans. medication usage, Demonstrated understanding of instructions, follow-up care, medications, Prescriptions given X 2. 03:54 Patient left the ED. as6 Signatures: Miranda Goetz, RN RN lg3 Jorge Perez DO DO ms3 Tiarra Munoz Ashby, RN RN as6
[2021-09-01 03:58] VITALS: BP 133/79; TEMP 98.7; O2SAT 100
== END 2021-09-01 03:54 | disposition home or self-care (01) ==
LOC: ER 02:39
DX: K04.7 Periapical abscess without sinus (principal); F17.210 Nicotine dependence, cigarettes, uncomplicated; Z88.5 Allergy status to narcotic agent
CPT/HCPCS: 99282